=== PATIENT | female | born 1970 | race Caucasian/White ===

== ENCOUNTER 2018-09-13 03:05 | Inpatient (IN) ==
[2018-09-13 03:44] LABS: Basophils % 0.3 %; Eosinophils # 0.3 K/mcL (0.0-0.6); Eosinophils % 3.5 %; Hematocrit 34.8 % (35.3-44.9); Immature Granulocytes % 0.4 % (0-4); Lymphocytes # 2.5 K/mcL (0.6-4.6); Lymphocytes % 27.1 %; Mean Corpuscular HGB Conc 31.6 g/dL (31.6-35.5); Mean Corpuscular Volume 85.3 fL (83.0-100.0); Mean Platelet Volume 10.2 fL (9.4-12.4); Monocytes # 0.6 K/mcL (0.0-1.3); Monocytes % 6.3 %; Neutrophils # 5.7 K/mcL (1.6-8.9); Platelet Count 241 K/mcL (140-400); Red Blood Count 4.08 M/mcL (3.82-4.97); Red Cell Distribution Width 16.3 % (11.5-14.5); Segmented Neutrophils % 62.4 %; White Blood Count 9.1 K/mcL (4.3-11.1)
[2018-09-13 03:52] LABS: INR 0.9; Prothrombin Time 10.6 Seconds (9.4-12.1)
[2018-09-13 03:54] LABS: Activated Partial Thrombo Time 33.4 Seconds (26.0-36.0)
[2018-09-13 04:09] LABS: Alanine Aminotransferase 13 Units/L (7-52); Albumin 4.2 g/dL (3.5-5.7); Albumin/Globulin Ratio 1.4 (1.1-2.2); Alkaline Phosphatase 109 Units/L (34-104); Aspartate Amino Transferase 14 Units/L (13-39); BUN/Creatinine Ratio 19 (6-26); Bilirubin,Indirect 0.2 mg/dL (0.0-1.2); Bilirubin,Total 0.2 mg/dL (0.3-1.0); Blood Urea Nitrogen 30 mg/dL (6-20); Calcium 9.5 mg/dL (8.6-10.3); Carbon Dioxide 23 mEq/L (23-29); Chloride 106 mEq/L (98-107); Ethanol < 10 mg/dL (Less than 10); Glucose 298 mg/dL (70-105); Osmolality,Calculated 313 (280-300); Potassium 3.9 mEq/L (3.5-5.1); Sodium 143 mEq/L (136-145); Total Protein 7.2 g/dL (6.4-8.9); Troponin I < 0.03 ng/mL (< 0.04); eGFR For African Americans 43 (> 60); eGFR For Non-African Americans 36 (> 60)
[2018-09-13 04:28] LABS: Bilirubin,Urine Negative (Negative); Blood,Urine Negative (Negative); Clarity,Urine Clear (Clear); Color,Urine Yellow (Yellow); Glucose,Urine (UA) >=1000 mg/dL (Normal); Ketones,Urine Negative (Negative); Leukocyte Esterase,Urine Negative (Negative); Nitrite,Urine Negative (Negative); Protein,Urine Negative (Neg-Trace); Specific Gravity,Urine 1.027 (1.010-1.025); Urobilinogen,Urine Normal (Normal)
[2018-09-13] MEDS ORDERED: 0.9 % Sodium Chloride 1,000 ML IV ONE ×2 (04:37→05:14)
[2018-09-13 04:40] LABS: Amphetamine Screen,Urine Negative ng/mL (Cutoff=1000); Barbiturate Screen,Urine Negative ng/mL (Cutoff=200); Benzodiazepines Screen,Urine Positive ng/mL (Cutoff=200); Cannabinoid Screen,Urine Negative ng/mL (Cutoff = 50); Cocaine Screen,Urine Negative ng/mL (Cutoff= 300); Opiate Screen,Urine Negative ng/mL (Cutoff=300); Phencyclidine Screen,Urine Negative ng/mL (Cutoff=25)
[2018-09-13 04:51] LABS: Hematocrit 34.1 % (35.3-44.9); Hemoglobin 10.4 g/dL (11.5-15.4); Mean Corpuscular HGB Conc 30.5 g/dL (31.6-35.5); Mean Corpuscular Hemoglobin 26.5 pg (28.0-33.3); Mean Platelet Volume 10.4 fL (9.4-12.4); Platelet Count 232 K/mcL (140-400); Red Blood Count 3.92 M/mcL (3.82-4.97); Red Cell Distribution Width 16.3 % (11.5-14.5); White Blood Count 10.1 K/mcL (4.3-11.1)
[2018-09-13 05:37] LABS: Acetaminophen < 10 mcg/mL (10-20); Salicylate < 2.5 mg/dL (15.0-30.0)
[2018-09-13 05:46] LABS: ABG Base Excess 0 mEq/L (-2 to 3); ABG HCO3 27 mEq/L (21-27); ABG Oxygen Saturation 92 % (95-98); ABG PCO2 59 mmHg (35-45); ABG PH 7.27 pH Units (7.32-7.45); ABG PO2 75 mmHg (85-104); ABG TCO2 29 mEq/L (20-26)
--- NOTE | 2018-09-13 06:27 | Emergency Department Note ---
Disposition Clinical Impression: CKD (chronic kidney disease), stage III, Metabolic encephalopathy, Solitary kidney Diabetes Qualifiers: Diabetes mellitus type: type 2 Diabetes mellitus terminal superintendent insulin use: unspecified terminal superintendent insulin use status Diabetes mellitus complication status: with kidney complications Diabetes mellitus complication detail: with chronic kidney disease Chronic kidney disease stage: stage 3 (moderate) Qualified Code(s): E11.22 - Type 2 diabetes mellitus with diabetic chronic kidney disease Altered mental status Qualifiers: Altered mental status type: unspecified Qualified Code(s): R41.82 - Altered mental status, unspecified Disposition: Still a Patient Condition: Fair Time of Disposition: 07:05 Altered Mental Status HPI - General Chief Complaint: ED Altered Mental Status Stated Complaint: confusion Time Seen by Provider: 09/13/18 03:14 Source: family Mode of arrival: private vehicle Limitations: altered mental status (But she is able to answer questions and follow commands) Nursing Notes Reviewed: Yes Vital Signs Reviewed: Yes - History of Present Illness HPI Narrative: 48-year-old female presents for an evaluation. Patient is a diabetic and has one kidney with chronic kidney disease. She had an episode similar to this last month and several times in the past. Approximately around 11:00 she was saying that her right foot felt heavy in her right hand felt tingling. Her states that she was having trouble walking but stated that she felt much better and did not want to the hospital. She begged him not to bring her. However, at approximately 2 AM she awoke him after she woke up and was not feeling well. But then she stated she felt fine and did not want her to the hospital. is unsure of her medications. She has not had a stroke in the past. Patient was patient is a stroke alert initially. Her last known time was approximately 11 PM or 2300 on 09/12/2018. Her states that she just was not acting right buttock, has had similar symptoms in the past. MD complaint: altered mental status, confusion Time: 23:00 Timing confirmed by: spouse Pain Severity: none Pain Scale: 0 Consistency of Symptoms: waxing and waning Context: other (History of chronic kidney disease and polypharmacy) - Related Data Home Medications Medication Instructions Recorded Confirmed Dapagliflozin Propanediol [Farxiga] 10 mg PO DAILY 06/20/18 07/25/18 Buspirone HCl [Buspar] 30 mg PO BID 07/25/18 07/25/18 Duloxetine HCl [Cymbalta] 60 mg PO HS 07/25/18 07/25/18 Metformin HCl [Glucophage] 1,000 mg PO DAILY 07/25/18 07/25/18 Previous Rx's Medication Instructions Recorded Gabapentin [Neurontin] 600 mg PO DAILY #30 tablet 07/29/18 Lisinopril [Zestril] 5 mg PO DAILY #30 tablet 07/29/18 Allergies Allergy/AdvReac Type Severity Reaction Status Date / Time ketorolac [From Toradol] AdvReac Itching Verified 09/13/18 03:08 Penicillins AdvReac Itching Verified 09/13/18 03:08 All systems ED: reviewed and negative except as stated. Constitutional: Denies: fever, chills, weakness, weight change Eyes: Denies: eye pain, eye discharge, vision change ENT ED: Denies: ear pain, throat pain, dental pain, hearing loss, epistaxis, congestion, dysphagia Cardiovascular: Denies: chest pain, palpitations, dyspnea on exertion, edema, syncope Respiratory: Denies: cough, dyspnea, wheezes, hemoptysis, stridor Gastrointestinal: Denies: abdominal pain, nausea, vomiting, diarrhea, constipation, hematemesis, melena, hematochezia Musculoskeletal: Denies: back pain, neck pain, arthralgia, myalgia Integumentary: Denies: rash, abrasion, lesions Neurological: Reports: confusion. Denies: headache, weakness, numbness, paresthesias, abnormal gait, vertigo Psychiatric: Denies: anxiety, depression, suicidal thoughts, homicidal thoughts, auditory hallucinations, visual hallucinations Endocrine: Denies: fatigue Hematological/Lymphatic: Denies: easy bleeding, easy bruising Allergic/Immunologic: Denies: facial swelling, urticaria Past Medical History - Past Medical History Attestation: Yes The following information was validated with the patient. Source: patient, old records reviewed, obtained from family, nursing notes reviewed Medical history: Reports: cancer, diabetes, other Surgical history: Reports: , orthopedic, other (Cervical and lumbar fixation), other (Partial left nephrectomy) Psychiatric history: Reports: anxiety, depression - Social History Smoking Status: Never smoker Smokeless Tobacco Status: No Alcohol use: Reports: none Drug use: Reports: none Physical Exam - General Limitations: no limitations General appearance: alert, in no apparent distress - Head Head exam: atraumatic, normocephalic, normal inspection - Eye Eye exam: Present: normal appearance, PERRL, EOMI - ENT ENT exam: normal exam, normal oropharynx, mucous membranes moist - Neck Neck exam: Present: normal inspection, full ROM, trachea midline - Chest Chest inspection: Present: normal inspection, symmetric chest wall rise. Absent: tenderness - Respiratory Respiratory exam: Present: normal lung sounds bilaterally. Absent: respiratory distress, wheezes, accessory muscle use - Cardiovascular Cardiovascular exam: Present: regular rate, normal rhythm, normal heart sounds. Absent: bradycardia - Abdominal Exam Abdominal exam: Present: soft, Non-Tender, normal bowel sounds. Absent: tenderness, distention, guarding, rebound, rigidity - Extremities Exam Extremities exam: Present: normal inspection, full ROM, normal capillary refill. Absent: tenderness, pedal edema, joint swelling, calf tenderness - Back Exam Back exam: Present: normal inspection, full ROM. Absent: tenderness, CVA tenderness (R), CVA tenderness (L) - Neurological Exam Neurological exam: Present: alert, CN II-XII intact, reflexes normal. Absent: motor sensory deficit - Expanded Neurological Exam Patient oriented to: Present: person, place Speech: Present: fluid speech Cranial nerves: EOM function (II, III, IV, ): Normal, facial sensation (V): Normal, facial palsy (VII): Normal, gag reflex (IX): Normal, spinal accessory function (XI): Normal, tongue deviation (XII): Normal Cerebellar function: finger to nose: Normal, heel to mo: Normal Motor strength - LUE: 5/5 Motor strength - RUE: 5/5 Motor strength - LLE: 5/5 Motor strength - RLE: 5/5 Upper motor neuron exam: amanda neglect: Absent bilaterally, pronator drift: Absent bilaterally, Babinski sign: Absent bilaterally, sensory extinction: Absent bilaterally Sensory exam upper extremity: light touch: Normal, pin prick: Normal, temperature: Normal, 2 point discrimination: Normal Sensory exam lower extremity: light touch: Normal, pin prick: Normal, temperature: Normal, 2 point discrimination: Normal DTR: bicep (L): 2+, bicep (R): 2+, patellar (L): 2+, patellar (R): 2+, Achilles tendon (L): 2+, Achilles tendon (R): 2+ Coma Scale Eye Opening: Spontaneous Coma Scale Motor Response: Obeys Commands Coma Scale Verbal Response: Confused Coma Scale Total: 14 - Psychiatric Psychiatric exam: Present: flat affect - Skin Skin exam: Present: warm, dry, intact, normal color Course Course Narrative: Patient was placed in examination room. History and physical was obtained. Nurse's notes reviewed. Patient appeared to have a slight facial droop on the right but it was very difficult to ascertain. I did obtain basic lab work. I obtain a stat CT of her head which was read negative by the radiologist. I did speak to [facility] neurologist , who advised against any TPA based on timing as well as on symptoms. I was also concerned with possibility of infection. But at this point chest x- ray and urinalysis were unremarkable. I did obtain a blood gas which did demonstrate a pH of 7.27 PCO2 of 59 PO2 of 75 and a bicarbonate of 27. Patient's lactic acid was 5.5. I did review some of her older visits and with her medications that she currently takes and her kidney function I would be concerned that this might be the culprit for her presentation. I did give 2 L of normal saline. I did state with the hospitalist as well for admission and he recommended repeating the lactic acid level prior to recent termination of her to place her. I did begin BiPAP at 06 20. Although, her PCO2 is not tremendously elevated fill it may be contributed factor. I am also concerned that reviewing her old visit and she produces a denied taking any benzodiazepines during that visit. However, her drug screen is again was positive. She does take Neurontin, BuSpar, Xanax in combination with CKD this could be affecting her mentation. - Reevaluation(s) Reevaluation #1: Patient is resting comfortably at this time. I discussed her initial lab results with her as well as her CT finding. Time: 05:10 Reevaluation #2: Patient is resting comfortably. BiPAP was started. Time: 06:39 Vital Signs Temperature 97.7 F 09/13/18 03:06 Pulse Rate 107 09/13/18 03:06 Respiratory Rate 20 09/13/18 03:06 Blood Pressure 156/102 09/13/18 03:06 O2 Sat by Pulse Oximetry 99 09/13/18 03:06 Temperature 97.7 F 09/13/18 03:06 Pulse Rate 105 09/13/18 07:00 Respiratory Rate 14 09/13/18 07:00 Blood Pressure 123/88 09/13/18 07:00 O2 Sat by Pulse Oximetry 100 09/13/18 07:00 Oxygen Delivery Oxygen Delivery Room Air Altered Mental Status - Medical Records Medical records reviewed: Yes I reviewed the patient's medical records. - Lab Data Lab results reviewed: Yes I reviewed the patient's lab results. Result diagrams: 09/14/18 04:20 09/14/18 04:20 Lab Results 09/13/18 09/13/18 09/13/18 Range/Units 03:31 03:31 03:31 WBC 9.1 (4.3-11.1) K/mcL RBC 4.08 (3.82-4.97) M/mcL Hgb 11.0 L (11.5-15.4) g/dL Hct 34.8 L (35.3-44.9) % MCV 85.3 (83.0-100.0) fL MCH 27.0 L (28.0-33.3) pg MCHC 31.6 (31.6-35.5) g/dL RDW 16.3 H (11.5-14.5) % Plt Count 241 (140-400) K/mcL MPV 10.2 (9.4-12.4) fL Immature Gran % 0.4 (0-4) % Seg Neutrophils % 62.4 % Lymphocytes % 27.1 % Monocytes % 6.3 % Eosinophils % 3.5 % Basophils % 0.3 % Neutrophils # 5.7 (1.6-8.9) K/mcL Lymphocytes # 2.5 (0.6-4.6) K/mcL Monocytes # 0.6 (0.0-1.3) K/mcL Eosinophils # 0.3 (0.0-0.6) K/mcL Basophils # 0.0 (0.0-0.2) K/mcL PT 10.6 (9.4-12.1) Seconds INR 0.9 APTT 33.4 (26.0-36.0) Seconds Sample Site ABG pH (7.32-7.45) pH Units ABG pCO2 (35-45) mmHg ABG pO2 (85-104) mmHg ABG HCO3 (21-27) mEq/L ABG Total CO2 (20-26) mEq/L ABG O2 Saturation (95-98) % ABG Base Excess (-2 to 3) mEq/L Wilmer Test O2 Delivery Device Sodium 143 (136-145) mEq/L Potassium 3.9 (3.5-5.1) mEq/L Chloride 106 (98-107) mEq/L Carbon Dioxide 23 (23-29) mEq/L BUN 30 H (6-20) mg/dL Creatinine 1.56 H (0.60-1.20) mg/dL Est GFR ( Amer) 43 L (> 60) Est GFR (Non-Af Amer) 36 L (> 60) BUN/Creatinine Ratio 19 (6-26) Glucose 298 H (70-105) mg/dL Calculated Osmolality 313 H (280-300) Lactic Acid (0.5-2.2) mmol/L Calcium 9.5 (8.6-10.3) mg/dL Total Bilirubin 0.2 L (0.3-1.0) mg/dL Direct Bilirubin 0.0 (0.0-0.2) mg/dL Indirect Bilirubin 0.2 (0.0-1.2) mg/dL AST 14 (13-39) Units/L ALT 13 (7-52) Units/L Alkaline Phosphatase 109 H (34-104) Units/L Ammonia (16-53) mcmol/L Troponin I < 0.03 (< 0.04) ng/mL Serum Total Protein 7.2 (6.4-8.9) g/dL Albumin 4.2 (3.5-5.7) g/dL Globulin 3.0 (2.4-3.5) g/dL Albumin/Globulin Ratio 1.4 (1.1-2.2) Urine Color (Yellow) Urine Clarity (Clear) Urine pH (5.0-8.0) pH Units Ur Specific [place] (1.010-1.025) Urine Protein (Neg-Trace) mg/dL Urine Glucose (UA) (Normal) mg/dL Urine Ketones (Negative) mg/dL Urine Blood (Negative) Urine Nitrite (Negative) Urine Bilirubin (Negative) Urine Urobilinogen (Normal) mg/dL Ur Leukocyte Esterase (Negative) Ur Culture Indicated? (NO) Salicylates < 2.5 L (15.0-30.0) mg/dL Urine Opiates Screen (Jttzrt=661) ng/mL Ur Buprenorphine Scrn (Cutoff=5) ng/mL Acetaminophen < 10 L (10-20) mcg/mL Ur Barbiturates Screen (Lhceay=956) ng/mL Ur Phencyclidine Scrn (Cutoff=25) ng/mL Ur Amphetamines Screen (Qqhrvu=5792) ng/mL U Benzodiazepines Scrn (Idiktv=471) ng/mL Urine Cocaine Screen (Cutoff= 300) ng/mL U Marijuana (THC) Screen (Cutoff = 50) ng/mL Ur Drug Screen Interp Ethyl Alcohol < 10 (Less than 10) mg/dL 09/13/18 09/13/18 09/13/18 Range/Units 03:31 04:10 04:10 WBC (4.3-11.1) K/mcL RBC (3.82-4.97) M/mcL Hgb (11.5-15.4) g/dL Hct (35.3-44.9) % MCV (83.0-100.0) fL MCH (28.0-33.3) pg MCHC (31.6-35.5) g/dL RDW (11.5-14.5) % Plt Count (140-400) K/mcL MPV (9.4-12.4) fL Immature Gran % (0-4) % Seg Neutrophils % % Lymphocytes % % Monocytes % % Eosinophils % % Basophils % % Neutrophils # (1.6-8.9) K/mcL Lymphocytes # (0.6-4.6) K/mcL Monocytes # (0.0-1.3) K/mcL Eosinophils # (0.0-0.6) K/mcL Basophils # (0.0-0.2) K/mcL PT (9.4-12.1) Seconds INR APTT (26.0-36.0) Seconds Sample Site ABG pH (7.32-7.45) pH Units ABG pCO2 (35-45) mmHg ABG pO2 (85-104) mmHg ABG HCO3 (21-27) mEq/L ABG Total CO2 (20-26) mEq/L ABG O2 Saturation (95-98) % ABG Base Excess (-2 to 3) mEq/L Wilmer Test O2 Delivery Device Sodium (136-145) mEq/L Potassium (3.5-5.1) mEq/L Chloride (98-107) mEq/L Carbon Dioxide (23-29) mEq/L BUN (6-20) mg/dL Creatinine (0.60-1.20) mg/dL Est GFR ( Amer) (> 60) Est GFR (Non-Af Amer) (> 60) BUN/Creatinine Ratio (6-26) Glucose (70-105) mg/dL Calculated Osmolality (280-300) Lactic Acid (0.5-2.2) mmol/L Calcium (8.6-10.3) mg/dL Total Bilirubin (0.3-1.0) mg/dL Direct Bilirubin (0.0-0.2) mg/dL Indirect Bilirubin (0.0-1.2) mg/dL AST (13-39) Units/L ALT (7-52) Units/L Alkaline Phosphatase (34-104) Units/L Ammonia 37 (16-53) mcmol/L Troponin I (< 0.04) ng/mL Serum Total Protein (6.4-8.9) g/dL Albumin (3.5-5.7) g/dL Globulin (2.4-3.5) g/dL Albumin/Globulin Ratio (1.1-2.2) Urine Color Yellow (Yellow) Urine Clarity Clear (Clear) Urine pH 6.0 (5.0-8.0) pH Units Ur Specific [place] 1.027 H (1.010-1.025) Urine Protein Negative (Neg-Trace) mg/dL Urine Glucose (UA) >=1000 H (Normal) mg/dL Urine Ketones Negative (Negative) mg/dL Urine Blood Negative (Negative) Urine Nitrite Negative (Negative) Urine Bilirubin Negative (Negative) Urine Urobilinogen Normal (Normal) mg/dL Ur Leukocyte Esterase Negative (Negative) Ur Culture Indicated? NO (NO) Salicylates (15.0-30.0) mg/dL Urine Opiates Screen Negative (Acdrrt=964) ng/mL Ur Buprenorphine Scrn Negative (Cutoff=5) ng/mL Acetaminophen (10-20) mcg/mL Ur Barbiturates Screen Negative (Rfyjoh=536) ng/mL Ur Phencyclidine Scrn Negative (Cutoff=25) ng/mL Ur Amphetamines Screen Negative (Dgrxwx=9987) ng/mL U Benzodiazepines Scrn Positive H (Mconzb=106) ng/mL Urine Cocaine Screen Negative (Cutoff= 300) ng/mL U Marijuana (THC) Screen Negative (Cutoff = 50) ng/mL Ur Drug Screen Interp See Below Ethyl Alcohol (Less than 10) mg/dL 09/13/18 09/13/18 09/13/18 Range/Units 04:39 04:39 05:43 WBC 10.1 (4.3-11.1) K/mcL RBC 3.92 (3.82-4.97) M/mcL Hgb 10.4 L (11.5-15.4) g/dL Hct 34.1 L (35.3-44.9) % MCV 87.0 (83.0-100.0) fL MCH 26.5 L (28.0-33.3) pg MCHC 30.5 L (31.6-35.5) g/dL RDW 16.3 H (11.5-14.5) % Plt Count 232 (140-400) K/mcL MPV 10.4 (9.4-12.4) fL Immature Gran % (0-4) % Seg Neutrophils % % Lymphocytes % % Monocytes % % Eosinophils % % Basophils % % Neutrophils # (1.6-8.9) K/mcL Lymphocytes # (0.6-4.6) K/mcL Monocytes # (0.0-1.3) K/mcL Eosinophils # (0.0-0.6) K/mcL Basophils # (0.0-0.2) K/mcL PT (9.4-12.1) Seconds INR APTT (26.0-36.0) Seconds Sample Site R Radial ABG pH 7.27 L (7.32-7.45) pH Units ABG pCO2 59 H (35-45) mmHg ABG pO2 75 L (85-104) mmHg ABG HCO3 27 (21-27) mEq/L ABG Total CO2 29 H (20-26) mEq/L ABG O2 Saturation 92 L (95-98) % ABG Base Excess 0 (-2 to 3) mEq/L Wilmer Test N/A O2 Delivery Device Room Air Sodium (136-145) mEq/L Potassium (3.5-5.1) mEq/L Chloride (98-107) mEq/L Carbon Dioxide (23-29) mEq/L BUN (6-20) mg/dL Creatinine (0.60-1.20) mg/dL Est GFR ( Amer) (> 60) Est GFR (Non-Af Amer) (> 60) BUN/Creatinine Ratio (6-26) Glucose (70-105) mg/dL Calculated Osmolality (280-300) Lactic Acid 5.5 H* (0.5-2.2) mmol/L Calcium (8.6-10.3) mg/dL Total Bilirubin (0.3-1.0) mg/dL Direct Bilirubin (0.0-0.2) mg/dL Indirect Bilirubin (0.0-1.2) mg/dL AST (13-39) Units/L ALT (7-52) Units/L Alkaline Phosphatase (34-104) Units/L Ammonia (16-53) mcmol/L Troponin I (< 0.04) ng/mL Serum Total Protein (6.4-8.9) g/dL Albumin (3.5-5.7) g/dL Globulin (2.4-3.5) g/dL Albumin/Globulin Ratio (1.1-2.2) Urine Color (Yellow) Urine Clarity (Clear) Urine pH (5.0-8.0) pH Units Ur Specific [place] (1.010-1.025) Urine Protein (Neg-Trace) mg/dL Urine Glucose (UA) (Normal) mg/dL Urine Ketones (Negative) mg/dL Urine Blood (Negative) Urine Nitrite (Negative) Urine Bilirubin (Negative) Urine Urobilinogen (Normal) mg/dL Ur Leukocyte Esterase (Negative) Ur Culture Indicated? (NO) Salicylates (15.0-30.0) mg/dL Urine Opiates Screen (Lzfjsj=138) ng/mL Ur Buprenorphine Scrn (Cutoff=5) ng/mL Acetaminophen (10-20) mcg/mL Ur Barbiturates Screen (Kgbfxw=933) ng/mL Ur Phencyclidine Scrn (Cutoff=25) ng/mL Ur Amphetamines Screen (Hervxr=2560) ng/mL U Benzodiazepines Scrn (Arjsev=083) ng/mL Urine Cocaine Screen (Cutoff= 300) ng/mL U Marijuana (THC) Screen (Cutoff = 50) ng/mL Ur Drug Screen Interp Ethyl Alcohol (Less than 10) mg/dL - Radiology Data Radiology results reviewed: Yes I reviewed the patient's radiology results. EXAMINATION: CT OF THE HEAD WITHOUT CONTRAST - STROKE ALERT 09/13/2018 3:39 am TECHNIQUE: CT of the head was performed without the administration of intravenous contrast. Dose modulation, iterative reconstruction, and/or weight based adjustment of the mA/kV was utilized to reduce the radiation dose to as low as reasonably achievable. COMPARISON: Head CT dated 07/25/2018. HISTORY: ORDERING SYSTEM PROVIDED HISTORY: stroke alert FINDINGS: BRAIN/VENTRICLES: There is no acute intracranial hemorrhage, mass effect or midline shift. No abnormal extra-axial fluid collection. The johnson-white differentiation is maintained without evidence of an acute infarct. There is no evidence of hydrocephalus. ORBITS: The visualized portion of the orbits demonstrate no acute abnormality. SINUSES: The visualized paranasal sinuses and mastoid air cells demonstrate no acute abnormality. SOFT TISSUES/SKULL: No acute abnormality of the visualized skull or soft tissues. Findings on this exam were discussed with Dr. Palmer by Dr. Alfaro on 09/13/2018 at 3:[address]/CT stroke alert head wo con IMPRESSION: No acute intracranial abnormality. D/ / Cee Alfaro MD / Cee Alfaro MD Interpreting Provider: Cee Alfaro MD INATION: ONE XRAY VIEW OF THE CHEST 09/13/2018 3:42 am COMPARISON: None. HISTORY: ORDERING SYSTEM PROVIDED HISTORY: altered mental status FINDINGS: Cardiac and mediastinal shadows are normal. No infiltrates. No effusions. No pneumothorax. No free air below the diaphragm. XR/XR chest 1V portable IMPRESSION: No acute findings in the chest. - EKG Data EKG attestation: Yes I reviewed and interpreted this EKG. EKG results narrative: Normal sinus rhythm 89 bpm, normal axis, normal MS interval, normal QRS duration, no acute ST elevations. TPA Checklist - LKW: 3-4.5 hrs Add. Warnings/Precautions Patient/family understanding: The patient/family members have been counseled and understood the risk, benefit, and alternatives of treatment. Critical Care Time Critical Care Time: Yes Total Critical Care Time: 30 Attestation: The high probability of a clinically significant, sudden or life threatening deterioration of the patient's condition required my full and direct attention, intervention and personal management. Attestation Statement - Attestation Attestation: Addendum I, Raymundo Lugo DO, saw this patient in the emergency department after patient had artery been admitted. was concerned about the patient's confusion which is what she was admitted for. Patient was not hypoxic, was answering questions in the emergency Department however she did appear to be confused. This has apparently occurred multiple times in the past. Disposition did not change in patient was transferred to the floor without further competition.
[2018-09-13] MEDS ORDERED: 0.9 % Sodium Chloride 1,000 ML IVC ONE (08:30)
[2018-09-13] MEDS ORDERED: *HR* LORazepam 2 MG/ML VIAL IVP ONE (08:32)
[2018-09-13] MEDS ORDERED: 0.9 % Sodium Chloride 1,000 ML ONE (08:34)
[2018-09-13 08:43] LABS: ABG Base Excess -1 mEq/L (-2 to 3); ABG HCO3 25 mEq/L (21-27); ABG Oxygen Saturation 97 % (95-98); ABG PCO2 46 mmHg (35-45); ABG PH 7.34 pH Units (7.32-7.45); ABG PO2 94 mmHg (85-104); ABG TCO2 26 mEq/L (20-26)
[2018-09-13] MEDS ORDERED: Naloxone 0.4 MG/ML INJ IVP PRN (09:28)
[2018-09-13] MEDS ORDERED: *HR* Metoprolol 5 MG/5 ML VIAL IVP PRN (09:30)
[2018-09-13] MEDS ORDERED: Ondansetron 4 MG/2 ML VIAL IVP PRN (09:31)
--- NOTE | 2018-09-13 09:33 | Internal Med History&Physical ---
Date of Encounter: 09/13/18 Time of Encounter: 10:25 Internal Medicine - H&P: HPI History of present illness: Ms. Farrell is a 48 year old female with history of CKD, solitary kidney, DM, presented to ED with altered mental status. Her son is present at bedside and he provides some history as patient is sedated. Last night patient was with her and son and she was confused and slurring speech. She was having difficulty walking but she refused to go to the hospital. She was eventually forced by her son and . Her son states she was fighting and grabbing on to things not to go to ED for evaluation, but her family insisted and brought her in. On arrival to ED, a stroke alert was called. Last known well time was 11 pm [address] A stat CT head was negative. She was not a tpa candidate based on her presentation. ABG done showed pH 7.27, pCO2 of 59, pO2 75 and bicarb 27. She had lactic acid elevated at 5.5. She was placed on bipap and ABG did improve. Urine drug screen was positive for benzodiazepines. She takes Neurontin, Buspar, Xanax at home. She was admitted about one month ago with similar presentations and was suggested to decrease the doses, not abruptly DC'ing Xanax and Neurontin because of potential for withdrawals. Currently during my evaluation ROS limited as patient spontaneously breathing but not responding to verbal and tactile stimuli. Family history could not be obtain by patient due to mental status. 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 cervical fusion. lumbar fusion. partial nephrectomy of left kidney - Social History Smoking Status: Never smoker Smokeless Tobacco Status: No Alcohol use: rarely Drug use: none - Family History Mother History Unknown: Yes Internal Medicine - H&P: Meds Dapagliflozin Propanediol [Farxiga] 10 mg PO DAILY 06/20/18 [History] Buspirone HCl [Buspar] 30 mg PO BID 07/25/18 [History] Duloxetine HCl [Cymbalta] 60 mg PO HS 07/25/18 [History] Metformin HCl [Glucophage] 1,000 mg PO DAILY 07/25/18 [History] Gabapentin [Neurontin] 600 mg PO DAILY #30 tablet 07/29/18 [Rx] Lisinopril [Zestril] 5 mg PO DAILY #30 tablet 07/29/18 [Rx] Allergy/AdvReac Type Severity Reaction Status Date / Time ketorolac [From Toradol] AdvReac Itching Verified 09/13/18 03:08 Penicillins AdvReac Itching Verified 09/13/18 03:08 ROS unobtainable: due to mental status All Systems PM: A 10-system review of systems was performed and is negative for pertinent findings except as documented above in the HPI. - Constitutional Vitals: Temp Pulse Resp BP Pulse Ox 97.7 F 98 14 129/87 100 09/13/18 03:06 09/13/18 08:44 09/13/18 08:20 09/13/18 08:44 09/13/18 08:44 General appearance: Absent: answers questions appropriately Exam: obtunded, spontaneously breathing on BIPAP with some abnormal breathing patterns. - Head Head exam: Present: atraumatic, normocephalic - Expanded Head Exam Head exam expanded: Absent: laceration - Eye Eye exam: Absent: EOMI (not able to assess) Pupils: Absent: PERRL Additional comments: Can not assess motion due to status. Bilateral pupils are not reactive to light. - ENT ENT exam: Present: mucous membranes moist - Neck Neck exam general surgery: Present: supple, trachea midline. Absent: lymphadenopathy - Respiratory Respiratory exam: Present: CTAB. Absent: accessory muscle use, rales, rhonchi, wheezes - Cardiovascular Cardiovascular exam: Present: RRR, +S1, +S2. Absent: diastolic murmur, gallop, rubs, systolic murmur - GI/Abdominal GI/Abdominal exam: Present: normal bowel sounds, soft, no peritoneal signs. Absent: distended, tenderness - Extremities Exam Extremities exam: Present: warm, radial pulses palpable and symmetrical. Absent: calf tenderness, cyanotic, pedal edema - Neurological Exam Neurological exam: Present: altered. Absent: abnormal gait, alert, CN II-XII intact, normal gait, oriented X3 - Skin Skin exam: Present: dry, intact Internal Med - H&P Results - Labs CBC & Chem 7: 09/13/18 04:39 09/13/18 03:31 Labs: Short CBC 09/13/18 09/13/18 Range/Units 03:31 04:39 WBC 9.1 10.1 (4.3-11.1) K/mcL Hgb 11.0 L 10.4 L (11.5-15.4) g/dL Hct 34.8 L 34.1 L (35.3-44.9) % Plt Count 241 232 (140-400) K/mcL Neutrophils # 5.7 (1.6-8.9) K/mcL BMP 09/13/18 03:31 Sodium 143 Potassium 3.9 Chloride 106 Carbon Dioxide 23 BUN 30 H Creatinine 1.56 H Glucose 298 H Calcium 9.5 Cardiac Enzymes 09/13/18 Range/Units 03:31 Troponin I < 0.03 (< 0.04) ng/mL Liver Function 09/13/18 Range/Units 03:31 Total Bilirubin 0.2 L (0.3-1.0) mg/dL Direct Bilirubin 0.0 (0.0-0.2) mg/dL AST 14 (13-39) Units/L ALT 13 (7-52) Units/L Alkaline Phosphatase 109 H (34-104) Units/L Albumin 4.2 (3.5-5.7) g/dL Urine 09/13/18 Range/Units 04:10 Urine Color Yellow (Yellow) Urine Clarity Clear (Clear) Urine pH 6.0 (5.0-8.0) pH Units Ur Specific Addison 1.027 H (1.010-1.025) Urine Protein Negative (Neg-Trace) mg/dL Urine Glucose (UA) >=1000 H (Normal) mg/dL - ABG Interpretation ABG results: 09/13/18 09/13/18 05:43 08:40 ABG pH 7.27 L 7.34 ABG pCO2 59 H 46 H ABG pO2 75 L 94 ABG HCO3 27 25 ABG Total CO2 29 H 26 ABG O2 Saturation 92 L 97 ABG Base Excess 0 -1 - Impressions ITS Impressions Chest X-Ray 09/13/18 03:21 IMPRESSION: No acute findings in the chest. D/ / Cee Alfaro MD / Cee Alfaro MD Interpreting Provider: Cee Alfaro MD Head CT 09/13/18 03:28 IMPRESSION: No acute intracranial abnormality. D/ / Cee Alfaro MD / Cee Alfaro MD Interpreting Provider: Cee Alfaro MD - Assessment and Plan (1) Toxic metabolic encephalopathy Current Visit: Yes Status: Acute Assessment and plan: Unsure etiology at this time, but there is concern for polypharmacy. Urine drug screen positive for benzodiazepines, which is a home prescription. Lactic acid elevated could be due to medications such as metformin. Did improve with 3L normal saline. CT without contrast in ED negative. - Consult Neurology - Consult Nephrology - evaluate for possible acidosis of renal origin - Continue BIPAP - Patient currently on tele floor, transfer to step-down unit for closer monitoring. (2) CKD (chronic kidney disease), stage III Current Visit: Yes Status: Acute (3) Diabetes Current Visit: Yes Status: Acute Assessment and plan: NPO, ISS q6h. Hold metformin, which could be contribution to lactic acidosis. Qualifiers: Diabetes mellitus type: type 2 Diabetes mellitus nursing home insulin use: unspecified meterman insulin use status Diabetes mellitus complication status: with kidney complications Diabetes mellitus complication detail: with chronic kidney disease Chronic kidney disease stage: stage 3 (moderate) Qualified Code(s): E11.22 - Type 2 diabetes mellitus with diabetic chronic kidney disease; N18.3 - Chronic kidney disease, stage 3 (moderate) (4) Solitary kidney Current Visit: Yes Status: Acute (5) Acute kidney injury superimposed on CKD Current Visit: No Status: Acute (6) Anemia Current Visit: No Status: Acute Qualifiers: Anemia type: unspecified type Qualified Code(s): D64.9 - Anemia, unspecified (7) DVT prophylaxis Current Visit: No Status: Acute Assessment and plan: Heparin SQ (8) Lactic acidosis Current Visit: Yes Status: Acute Assessment and plan: Plan as above. - Time Spent With Patient Total time spent is greater than 50% in coordination of care (as documented) at patient's floor/unit and/or counseling patient:
--- NOTE | 2018-09-13 11:23 | Nephrology Consult Note ---
Date of Encounter: 09/13/18 Time of Encounter: 11:15 Assessment and Plan (1) CKD (chronic kidney disease), stage III Current Visit: Yes Status: Acute Baseline is CKD III with Dr. Reynoso. Recent ELISSA in July of this year, GFR was 6, did not require HD. GFR is 36 today, stable. Urine sodium, potassium, calcium ordered. RTA is a diagnosis by exclusion, labs pending. UA ph noted to be 6. Carbon Dioxide is 23. (2) Solitary kidney Current Visit: Yes Status: Acute H/x of. (3) Toxic metabolic encephalopathy Current Visit: Yes Status: Acute Per primary. History of Present Illness - Reason for Consult Consult date: 09/13/18 (R/O RTA) Chronic Kidney Disease Requesting physician: Rachel Angeles - Chief Complaint AMS - History of Present Illness Ms. Farrell is a 48 year old female who presented today with AMS. She was persuaded to come to ED by and son. Per record she was agitated and did not want to seek medical treatment, but was made to come by her family. PMH: anxiety, depression, CKD III, solitary kidney, DM. She is seen by Dr. Reynoso in the office. Pt is poor historian, most information was collected by previous medical records. She will answer questions, but she is somewhat slow to respond and fatigues easily. She will respond with shaking her head, but will not speak. Neurology has been consulted. [facility] were consulted to rule out RTA. Urine potassium, sodium, and calcium ordered. UA already completed. She lives at home with . Per ED report denies etoh, tobacco, or illicit drug use. She is prescribed Neurontin, Buspar, Xanax at home, she was encouraged to decrease dosages during a hospitalization last month, but not to abruptly stop them due to withdrawal side effects. No family at bedside, unsure of any FH of CKD or HD. 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 cervical fusion. lumbar fusion. partial nephrectomy of left kidney - Social History Smoking Status: Never smoker Smokeless Tobacco Status: No Alcohol use: rarely Drug use: none - Family History Mother History Unknown: Yes Medications and Allergies Dapagliflozin Propanediol [Farxiga] 10 mg PO DAILY 06/20/18 [History] Buspirone HCl [Buspar] 30 mg PO BID 07/25/18 [History] Duloxetine HCl [Cymbalta] 60 mg PO HS 07/25/18 [History] Metformin HCl [Glucophage] 1,000 mg PO DAILY 07/25/18 [History] Gabapentin [Neurontin] 600 mg PO DAILY #30 tablet 07/29/18 [Rx] Lisinopril [Zestril] 5 mg PO DAILY #30 tablet 07/29/18 [Rx] Allergy/AdvReac Type Severity Reaction Status Date / Time ketorolac [From Toradol] AdvReac Itching Verified 09/13/18 03:08 Penicillins AdvReac Itching Verified 09/13/18 03:08 Review of Systems All Systems review (narrative): The remainder of the systems are negative. Constitutional: no chills Cardiovascular: no chest pain, no dyspnea Gastrointestinal: no diarrhea, no nausea, no vomiting Genitourinary Female: no hematuria Exam - Vital Signs Vital signs: Initial Vital Signs Temp Pulse Resp BP Pulse Ox 97.7 F 107 20 156/102 99 09/13/18 03:06 09/13/18 03:06 09/13/18 03:06 09/13/18 03:06 09/13/18 03:06 Vital Signs - Last 8 Hours Temp Pulse Resp BP Pulse Ox 09/13/18 10:23 97.7 F 89 16 119/78 100 09/13/18 08:44 98 129/87 100 09/13/18 08:20 106 14 136/108 100 09/13/18 07:00 105 14 123/88 100 09/13/18 06:40 14 100 09/13/18 06:30 102 14 131/73 100 09/13/18 06:00 100 126/76 100 09/13/18 05:30 97 120/68 99 09/13/18 05:21 97 16 106/70 100 09/13/18 04:11 91 16 114/73 09/13/18 03:56 98 16 123/72 09/13/18 03:41 93 16 106/58 Intake and Output 09/12/18 09/13/18 09/13/18 23:59 07:59 15:59 Intake Total 1999 Balance 1999 Intake: IV Fluids 1999 0.9 % Sodium Chloride 1,000 ML 1999 @ 1000 mls/hr IV ONCE ONE Rx#: [id number] Other: Weight 63.503 kg Blood Glucose* 290 149 Patient Weight 09/13/18 23:59 Weight 63.503 kg - General Appearance General appearance: well-developed, well-nourished EENT: ATNC, hearing intact, vision intact Neck: supple Respiratory: clear Cardiology: no edema, normal S1, normal S2 Gastrointestinal: normoactive bowel sounds, no tenderness, no guarding Integumentary: no rash, warm and dry Additional Comments: Alert to self, unable to state location or date. Shakes head yes and no when asked questions. Musculoskeletal: no deformities, no erythema Psychiatric: mood/affect appropriate, cooperative Results - Lab Results 09/13/18 04:39 09/13/18 03:31 Most recent lab results 09/13/18 09/13/18 09/13/18 03:31 05:43 08:40 ABG pH 7.27 L 7.34 ABG pCO2 59 H 46 H ABG pO2 75 L 94 ABG HCO3 27 25 ABG O2 Saturation 92 L 97 Calcium 9.5 Consult Discharge Plan - Plan Referrals: Kermit Yan MD [Primary Care Provider] -
--- NOTE | 2018-09-13 11:30 | Neurology - Consult Note ---
<Brad Alfredo - Last Filed: 09/13/18 12:08> Date of Encounter: 09/13/18 Time of Encounter: 11:26 Assessment and Plan (1) Toxic metabolic encephalopathy Current Visit: Yes Status: Acute Unclear etiology at this time Polypharmacy vs Respiratory failure with acidosis, hypoxia and hypercapnea or some combination thereof -on BZD's, buspar, gabapentin; UDS +BZD's With abrupt changes to LOC and mental state r/o an acute ischemic cause; MRI of the brain is ordered and pending Will also r/o non-epileptic seizure event; STAT EEG pending Otherwise closely monitor neurological status with frequent neuro assessments per protocol Further recommendations pending completion of w/u History of Present Illness Chief complaint: agitation, confusion, slurred speech HPI: Ms. Farrell is a 48 year old female with a PMH of CKD, DM, anxiety, depression, and kidney cancer who is s/p partial left nephrectomy. She presents to [facility] at the behest of her family for evaluation of confusion, agitation and slurred speech. Her LKW was 11am yesterday as such she was not a candidate for TPA per the [facility] stroke team but she was recommended to be admitted for a CVA work-up. Also of note she was found to have an elevated lactic acid and respiratory acidosis with hypoxia and hypercapnea with an unremarkable CXR. Currently, she is confused and unable to verbalize therefore, HPI was collected with information obtained from the chart review and physician to [employer] report. Neurology has been consulted d/t an abrupt change in LOC. It is reported that she was agitated in the ED and thusly received a dose of Ativan IV. She was calm thereafter. Upon assessment by the attending she was noted to be obtunded and unarousable to painful stimulus. Further, she had fixed pupils. Two doses of Romazicon were given however she did not have any significant improvement initially and therefore was transferred to the ICU for closer monitoring. By the time of my assessment she is awake and alert and oriented to person but she is encephalopathic and unable to provide me any information regarding her current situation. She was admitted approximately 1-month ago for a similar event and during that admission it was advised to slowly taper Xanax and Neurontin and doses were decreased by the primary team prior to d/c. I have reviewed the CBC and find a stable chronic anemia. The CMP finds stable CKD, the UA is negative for an acute infection. CXR is without any acute pulmonary findings. The UDS is positive for BZD's for which she is prescribed. 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 cervical fusion. lumbar fusion. partial nephrectomy of left kidney - Social History Smoking Status: Never smoker Smokeless Tobacco Status: No Alcohol use: rarely Drug use: none - Family History Mother History Unknown: Yes Medications and Allergies Dapagliflozin Propanediol [Farxiga] 10 mg PO DAILY 06/20/18 [History] Buspirone HCl [Buspar] 30 mg PO BID 07/25/18 [History] Duloxetine HCl [Cymbalta] 60 mg PO HS 07/25/18 [History] Metformin HCl [Glucophage] 1,000 mg PO DAILY 07/25/18 [History] Gabapentin [Neurontin] 600 mg PO DAILY #30 tablet 07/29/18 [Rx] Lisinopril [Zestril] 5 mg PO DAILY #30 tablet 07/29/18 [Rx] Allergy/AdvReac Type Severity Reaction Status Date / Time ketorolac [From Toradol] AdvReac Itching Verified 09/13/18 03:08 Penicillins AdvReac Itching Verified 09/13/18 03:08 ROS unobtainable: due to mental status All Systems: The remainder of the systems were reviewed and are negative Physical Examination - Vital Signs Vital Signs: Initial Vital Signs Temp Pulse Resp BP Pulse Ox 97.7 F 107 20 156/102 99 09/13/18 03:06 09/13/18 03:06 09/13/18 03:06 09/13/18 03:06 09/13/18 03:06 - Exam Exam: Examination: General Examination: *CONSTITUTIONAL: Alert and awake, oriented to self only *GENERAL APPEARANCE OF PATIENT appears stated age with appropriate hygiene. *EYES: pupils equal, round, reactive to light and accommodation, conjunctiva clear without masses or ulcerations, fundi normal. *CARDIOVASCULAR: RRR, no peripheral edema, distal temperature normal, dorsalis pedis pulses normal. Refer to vital signs * MUSCULOSKELETAL: *GAIT AND STATION: Deferred *ASSESSMENT OF MUSCLE STRENGTH IN THE UPPER AND LOWER EXTREMITIES bilateral deltoid, bicep, tricep, weapons and tactics instructor strength, hip flexors ,anterior tibialis, dorsoflexion of the foot 5/5 but patient fatigues easily *MUSCLE TONE IN THE UPPER AND LOWER EXTREMITIES normal without spasticity or rigidity. No abnormal movements, fasciculations or atrophy identified. Neurological: *ORIENTATION to person only *LANGUAGE AND FUNCTION she attempts to verbalize but is having difficulty vocalizing with a whispering quality to her voice. *ATTENTION AND CONCENTRATION are abnormal and she is unable to maintain concentration or attention for a prolonged period *LANGUAGE FUNCTION are altered and she is having difficulty vocalizing *FUND OF KNOWLEDGE unaware of current events, past history, vocabulary *MENTAL attention span and concentration abnormal. She is requiring frequent redirection *CN II optic fundi were normal, no papilledema noted. *CN III,IV, PERRLA extraocular eye movements were limited with decreased extraoccular motility on abduction. She is having non-fatigable nystagmus and no ptosis noted. *CN V shows normal sensation. jaws open symmetrically *CN VII shows normal facial movement symmetrically, upper and lower bilaterally. *CN VIII shows no significant hearing loss on exam *CN IX-X palate elevated symmetrically *CN XI normal strength in the sternocleidomastoid muscles, symmetrical shoulder shrugging. *CN XII tongue protruded in the midline, with normal strength and movement. *SENSORY EXAMINATION light touch intact *REFLEXES: deep tendon reflexes were absent diffusely, no pathological reflexes were noted. *CEREBELLAR TESTING normal finger to nose, heel/knee/mo *PAIN LEVEL 0/10 Results - Laboratory Findings CBC and BMP: 09/13/18 04:39 09/13/18 03:31 Abnormal lab findings: Abnormal lab results Hgb 10.4 g/dL (11.5-15.4) L 09/13/18 04:39 Hct 34.1 % (35.3-44.9) L 09/13/18 04:39 MCH 26.5 pg (28.0-33.3) L 09/13/18 04:39 MCHC 30.5 g/dL (31.6-35.5) L 09/13/18 04:39 RDW 16.3 % (11.5-14.5) H 09/13/18 04:39 ABG pH 7.27 pH Units (7.32-7.45) L 09/13/18 05:43 ABG pCO2 46 mmHg (35-45) H 09/13/18 08:40 ABG pO2 75 mmHg (85-104) L 09/13/18 05:43 ABG Total CO2 29 mEq/L (20-26) H 09/13/18 05:43 ABG O2 Saturation 92 % (95-98) L 09/13/18 05:43 BUN 30 mg/dL (6-20) H 09/13/18 03:31 Creatinine 1.56 mg/dL (0.60-1.20) H 09/13/18 03:31 Est GFR ( Amer) 43 (> 60) L 09/13/18 03:31 Est GFR (Non-Af Amer) 36 (> 60) L 09/13/18 03:31 Glucose 298 mg/dL (70-105) H 09/13/18 03:31 POC Glucose 143 mg/dL (70-99) H 09/13/18 10:54 Calculated Osmolality 313 (280-300) H 09/13/18 03:31 Lactic Acid 3.3 mmol/L (0.5-2.2) H 09/13/18 08:39 Total Bilirubin 0.2 mg/dL (0.3-1.0) L 09/13/18 03:31 Alkaline Phosphatase 109 Units/L (34-104) H 09/13/18 03:31 Ur Specific [place] 1.027 (1.010-1.025) H 09/13/18 04:10 Urine Glucose (UA) >=1000 mg/dL (Normal) H 09/13/18 04:10 Salicylates < 2.5 mg/dL (15.0-30.0) L 09/13/18 03:31 Acetaminophen < 10 mcg/mL (10-20) L 09/13/18 03:31 U Benzodiazepines Scrn Positive ng/mL (Aktlug=573) H 09/13/18 04:10 - Diagnostic Findings Additional findings: CT/CT stroke alert head wo con IMPRESSION: No acute intracranial abnormality. Consult Discharge Plan - Plan Referrals: Kermit Yan MD [Primary Care Provider] - <Kyle May - Last Filed: 09/13/18 17:42> Date of Encounter: 09/13/18 Assessment and Plan (1) Toxic metabolic encephalopathy Current Visit: Yes Status: Acute I have personally performed a [id number] assessment of the patient and have reviewed the PA/MANAGER SUPPL[employer] CH[employer] PLANNING note. My impressions are as follows: I agree with the assessment and plan as stated above. I did review the EEG which does reveal what appeared to be triphasic waves, this pattern is often seen and those with hepatic or renal encephalopathy however may also be reflective of other toxic or metabolic exposures. The fact that she seems to be improving clinically without having had any significant medical treatment suggest to me that this may have been some transient event caused by some type of exposure. She is not postictal. We are awaiting MRI scan of the brain to rule out the possibility of an intracranial lesion such as infarct or neoplasm. However she is not febrile, she denies headache, her vital signs of been fairly stable since admission. Further recommendations will be made depending on her condition in the morning. She is not back to her baseline by then I might consider repeating an EEG, along with cerebral angiogram to rule out vasculitis and perhaps LP to rule out inflammatory conditions. I will reevaluate her in the morning. Critical care time spent with this patient today was 50 minutes. History of Present Illness HPI: The chart was reviewed, the patient was seen and examined independently. Case was discussed with the CMP. I agree with his documentation of the history of present illness as above. I would like to add however that I did have the opportunity to speak with the patient's and confidence. He informs me that she does have a history of PTSD is result of having a stillborn child 20 years ago. She is also very emotional about her son who has less and less time for her these days. I did ask whether not he felt improvement and possible that she could maybe have taken some either elicited or other substance and he could not say definitively that she may not have. I did review the EEG which does reveal triphasic waves. Clinically, she seems to be improved from the previous assessment as above. However she really has not received any additional medication treatment other than supportive care. ROS unobtainable: due to mental status All Systems: The remainder of the systems were reviewed and are negative Physical Examination - Vital Signs Vital Signs: Initial Vital Signs Temp Pulse Resp BP Pulse Ox 97.7 F 107 20 156/102 99 09/13/18 03:06 09/13/18 03:06 09/13/18 03:06 09/13/18 03:06 09/13/18 03:06 - Exam Exam: I have personally performed a [id number] assessment of the patient and have reviewed the PA/MANAGER [employer] PLANNING note. My impressions are as follows: Since the above assessment, patient is able to speak however not coherently and fluently. She seems to have some difficulty with verbal expression and sometimes even seems to make paraphasic errors consistent with expressive aphasia. She does however follow some commands but not consistently following all commands. She is not able to contribute anything historically speaking. Otherwise I agree with the neurologic examination is documented above. Results - Laboratory Findings CBC and BMP: 09/13/18 04:39 09/13/18 03:31 Abnormal lab findings: Abnormal lab results Hgb 10.4 g/dL (11.5-15.4) L 09/13/18 04:39 Hct 34.1 % (35.3-44.9) L 09/13/18 04:39 MCH 26.5 pg (28.0-33.3) L 09/13/18 04:39 MCHC 30.5 g/dL (31.6-35.5) L 09/13/18 04:39 RDW 16.3 % (11.5-14.5) H 09/13/18 04:39 ABG pH 7.27 pH Units (7.32-7.45) L 09/13/18 05:43 ABG pCO2 46 mmHg (35-45) H 09/13/18 08:40 ABG pO2 75 mmHg (85-104) L 09/13/18 05:43 ABG Total CO2 29 mEq/L (20-26) H 09/13/18 05:43 ABG O2 Saturation 92 % (95-98) L 09/13/18 05:43 BUN 30 mg/dL (6-20) H 09/13/18 03:31 Creatinine 1.56 mg/dL (0.60-1.20) H 09/13/18 03:31 Est GFR ( Amer) 43 (> 60) L 09/13/18 03:31 Est GFR (Non-Af Amer) 36 (> 60) L 09/13/18 03:31 Glucose 298 mg/dL (70-105) H 09/13/18 03:31 POC Glucose 121 mg/dL (70-99) H 09/13/18 16:07 Calculated Osmolality 313 (280-300) H 09/13/18 03:31 Lactic Acid 3.3 mmol/L (0.5-2.2) H 09/13/18 08:39 Total Bilirubin 0.2 mg/dL (0.3-1.0) L 09/13/18 03:31 Alkaline Phosphatase 109 Units/L (34-104) H 09/13/18 03:31 Ur Specific [place] 1.027 (1.010-1.025) H 09/13/18 04:10 Urine Glucose (UA) >=1000 mg/dL (Normal) H 09/13/18 04:10 Salicylates < 2.5 mg/dL (15.0-30.0) L 09/13/18 03:31 Acetaminophen < 10 mcg/mL (10-20) L 09/13/18 03:31 U Benzodiazepines Scrn Positive ng/mL (Damfqq=075) H 09/13/18 04:10
[2018-09-13] MEDS: Ringers Solution, Lactated 1,000 ML IVC SCH ×2 (11:52→14:32)
[2018-09-13] MEDS: Insulin LISPRO 300 UNITS/3 ML VIAL SQ SCH ×2 (11:53→18:10)
[2018-09-13] MEDS ORDERED: Insulin LISPRO 300 UNITS/3 ML VIAL SQ SCH ×2 (12:00→21:00)
[2018-09-13 12:28] LABS: Potassium,Urine < 2.0 mEq/L; Sodium, Urine < 10.0 mEq/L
--- NOTE | 2018-09-13 14:13 | Electrocardiograph Report ---
[facility] ZuzuChe Test Date: 2018-09-13 Pat Name: More Farrell Department: [id number] Room: 10 Gender: F Summer Analyst: : 1970 Requested By: [id number] Order Number: [id number] Reading MD: Walker Enamorado Measurements Intervals [place] Rate: 89 P: 62 NH: 139 QRS: 62 QRSD: 83 T: 55 QT: 381 QTc: 464 Interpretive Statements Sinus rhythm Low voltage, precordial leads Electronically Signed On 09-13-2018 14:12:11 EDT by Walker Enamorado
--- NOTE | 2018-09-13 16:34 | EEG/EMG/Oth Biometrics Report ---
EEG Procedure Report EEG Procedure: Routine EEG Procedure Note: This is a report of a 21 channel bipolar and referential montage EEG recorded on a patient with mental status changes upon admission which have improved to some extent. There is no posterior dominant alpha rhythm identified during the recording. A resting rhythm consists of mixed delta and theta frequencies with occasional superimposed beta frequencies. From the outset, triphasic waves are identified by hemispherically. These persist throughout much of the recording. Hyperventilation is not performed in recording. There is no normal sleep architecture identified during the study. Photic scintillations performed and does not produce a driving response. The EKG rhythm strip reveals normal sinus rhythm at 72 bpm. Impressions: This EEG recording was abnormal and is consistent with moderate to severe generalized encephalopathy. Is no evidence of epileptiform activity identified during the study. Comment: Triphasic waves are commonly associated with hepatic or renal encephalopathy however may be due to other generalized medical disturbances. Including toxic, metabolic. Please correlate clinically.
[2018-09-13] MEDS: *HR* Heparin 5,000 UNIT/ML VIAL SQ SCH (18:28)
[2018-09-14] MEDS: Insulin LISPRO 300 UNITS/3 ML VIAL SQ SCH ×4 (00:04→18:02)
[2018-09-14] MEDS: Ringers Solution, Lactated 1,000 ML IVC SCH (00:37)
[2018-09-14 04:39] LABS: Basophils # 0.1 K/mcL (0.0-0.2); Basophils % 0.6 %; Eosinophils # 0.4 K/mcL (0.0-0.6); Eosinophils % 3.7 %; Hematocrit 35.4 % (35.3-44.9); Immature Granulocytes % 0.3 % (0-4); Lymphocytes # 2.7 K/mcL (0.6-4.6); Lymphocytes % 28.8 %; Mean Corpuscular HGB Conc 31.1 g/dL (31.6-35.5); Mean Corpuscular Hemoglobin 27.2 pg (28.0-33.3); Mean Corpuscular Volume 87.4 fL (83.0-100.0); Mean Platelet Volume 9.8 fL (9.4-12.4); Monocytes # 0.5 K/mcL (0.0-1.3); Monocytes % 5.7 %; Neutrophils # 5.7 K/mcL (1.6-8.9); Platelet Count 228 K/mcL (140-400); Red Blood Count 4.05 M/mcL (3.82-4.97); Red Cell Distribution Width 16.3 % (11.5-14.5); Segmented Neutrophils % 60.9 %; White Blood Count 9.4 K/mcL (4.3-11.1)
[2018-09-14 04:59] LABS: BUN/Creatinine Ratio 13 (6-26); Blood Urea Nitrogen 12 mg/dL (6-20); Calcium 8.6 mg/dL (8.6-10.3); Carbon Dioxide 28 mEq/L (23-29); Chloride 107 mEq/L (98-107); Glucose 129 mg/dL (70-105); Osmolality,Calculated 297 (280-300); Potassium 3.2 mEq/L (3.5-5.1); Sodium 143 mEq/L (136-145); eGFR For African Americans > 60 (> 60); eGFR For Non-African Americans > 60 (> 60)
[2018-09-14 05:45] LABS: Phosphorous 1.6 mg/dL (2.7-4.5)
[2018-09-14] MEDS ORDERED: Potassium Phosphate 44 MEQ in 0.9 % Sodium Chloride 250 ML IVPB PRN (06:10)
[2018-09-14] MEDS ORDERED: Calcium Gluconate 1gm/50mL 1 GM/50 ML BAG IVPB PRN ×2 (06:10→18:46)
[2018-09-14] MEDS: *HR* Heparin 5,000 UNIT/ML VIAL SQ SCH ×2 (06:14→18:02)
--- NOTE | 2018-09-14 09:02 | Nephrology Progress Note ---
Date of Encounter: 09/14/18 Time of Encounter: 08:45 - Assessment and Plan (1) CKD (chronic kidney disease), stage III Current Visit: Yes Status: Acute Baseline is CKD III with Dr. Reynoso. Recent ELISSA in July of this year, GFR was 6, did not require HD. GFR is greater than 60 today. Urine sodium, potassium, calcium completed. RTA is a diagnosis by exclusion. UA ph noted to be 6. Carbon Dioxide is 28. Urine studies noted. This is most likely ELISSA on CKD not related to RTA, it is likely related to elevated lactic acid and polypharmacy. Per previous ED report, patient was instructed to decrease the dosage of several medications and f/u with PCP. I suggest decreasing Alprazoam, Tizanidine, and Gabapentin to see if AMS continues to improve. This should be done under the discretion of a provider, not up to the patient. Per the the event 6 weeks ago and this event is possibly related to her menstrual cycle. He also mentioned it to Dr. Reynoso at the patients OV on Wednesday09/09/[address] Reynoso made the referral for a BID CLERK exam that is still being scheduled. She denies any additional medication other than what is prescribed. Unsure if this is a contributing factor or not. At this time GFR is greater than 60 and electrolytes are being replaced, we will sign off at this time, please reconsult if needed. (2) Solitary kidney Current Visit: Yes Status: Acute Patient has functional solitary kidney , the left kidney is atrophic with approximately 31% split function status post nuclear Lasix renogram earlier in 2019, and the right kidney was near 68% function. (3) Toxic metabolic encephalopathy Current Visit: Yes Status: Acute Appears resolving. Per primary. Subjective Principal diagnosis: AMS Interval history: Agent seen and examined. Patient is much more alert today able to converse appropriately. Denies nausea, vomiting, or diarrhea. Denies chest pain or shortness of breath. Has been 10 he is at bedside and is a good historian. Objective - Vital Signs Vital signs: Vital Signs Temp Pulse Resp BP Pulse Ox 09/14/18 07:40 98.1 F 09/14/18 07:00 96 15 97 09/14/18 06:00 86 09/14/18 05:00 84 14 140/93 99 09/14/18 04:14 98.2 F 09/14/18 04:00 74 09/14/18 03:00 79 09/14/18 02:00 77 09/14/18 01:00 76 09/14/18 00:08 98.5 F 09/14/18 00:00 98 14 134/89 99 09/13/18 23:00 81 09/13/18 22:00 85 14 97 09/13/18 20:12 97.6 F 09/13/18 20:00 88 12 162/112 96 09/13/18 19:00 86 12 100 09/13/18 18:00 102 10 117/79 100 09/13/18 17:00 79 10 110/75 99 09/13/18 16:10 97.9 F 09/13/18 16:00 82 09/13/18 15:00 71 13 118/79 100 09/13/18 14:00 74 13 119/79 100 09/13/18 13:00 80 10 136/89 100 09/13/18 12:00 85 10 140/93 100 09/13/18 11:00 97.9 F 83 8 136/86 100 09/13/18 10:23 97.7 F 89 16 119/78 100 Intake and Output 09/13/18 09/14/18 09/14/18 23:59 07:59 15:59 Intake Total 1600 / 1600 Output Total 1200 / 1800 1900 / 1900 Balance -1200 / 200 -300 / -300 Intake: IV Fluids 1600 / 1600 Lactated Ringers 1,000 ML @ 100 1500 / 1500 mls/hr IVC .Q10H [facility]AL[facility] Rx#: [id number] Potassium Chloride 10 mEq/100mL 100 / 100 10 meq In 100 ml @ 100 mls/hr IVPB Q1H [facility]ALIA Rx#:[id number] Oral 0 / 0 Output: Urine 600 / 600 1900 / 1900 Straight Cath 600 / 1200 Other: Weight 66.1 kg Blood Glucose* 121 111 Patient Weight 09/14/18 23:59 Weight 66.1 kg - General Appearance General appearance: Present: well-developed, well-nourished EENT: Present: ATNC, hearing intact, vision intact Neck: Present: supple Respiratory: Present: clear Cardiology: Present: no edema, normal S1, normal S2 Gastrointestinal: Present: normoactive bowel sounds, no tenderness, no guarding Integumentary: Present: no rash, warm and dry Neurologic: Present: alert and oriented x3 Musculoskeletal: Present: no deformities, no erythema Psychiatric: Present: mood/affect appropriate, cooperative - Lab 09/14/18 04:20 09/14/18 04:20 Most recent lab results 09/14/18 04:20 Calcium 8.6 Phosphorus 1.6 L Magnesium 1.0 L Consult Discharge Plan - Plan Referrals: Kermit Yan MD [Primary Care Provider] -
[2018-09-14] MEDS ORDERED: Potassium Chloride Elixir 20 MEQ/15 ML UDC PO ONE (09:05)
--- NOTE | 2018-09-14 10:56 | Neurology Progress Note ---
<Brad Alfredo J - Last Filed: 09/14/18 10:56> Date of Encounter: 09/14/18 Time of Encounter: 10:56 Assessment and Plan (1) Toxic metabolic encephalopathy Current Visit: Yes Status: Acute The patient was seen in follow-up today for encephalopathy She is now back to baseline state, alert and oriented 4 without any focal neurological findings MRI of the brain was completed and found to be negative for acute intracranial abnormality, mass or lesion An EEG has been completed and was found to be abnormal and is consistent with moderate to severe generalized encephalopathy; no evidence of seizure activity On examination today the patient reports that although it was recommended that she decrease her medication doses of gabapentin and Xanax she has not. She states that she has suicidal ideation and after discussions with her PCP and p sychologist was felt that if she were to decrease her dose of Xanax this may further exacerbate her suicidal ideation. Currently, she denies any suicidal ideation or thoughts to harm self or others. With a nonfocal neurological exam today and the fact that she has returned to baseline status without any intervention appears that her encephalopathy is likely result of poor kidney function with decreased clearance in combination with multiple medications including Xanax, gabapentin, and BuSpar. As such, our recommendations are for a inpatient psychiatric consultation to discuss medication recommendations and to determine if there is an underlying psychiatric component contributing to her co ndition. Neurology will follow preipherally. Subjective Principal diagnosis: AMS Interval history: Seen in follow-up today for an altered mental state. Today, she is back to baseline status and alert and oriented 4 without any focal neurological deficits or complaints. Today she was able to discuss symptoms which brought her in for evaluation and is able to recollect events leading up to admission. I discussed the MRI and EEG findings as well as concerns regarding her medication doses in the setting of altered renal function and clearance. The patient verbalizes understanding. Her main concerns at this time are that if she were to decrease her Xanax dose she fears she will become suicidal. As such, I discussed that we are recommending a psychiatric evaluation. The patient is in agreement. Objective - Constitutional Vitals: Temp Pulse Resp BP Pulse Ox 98.1 F 90 12 136/94 99 09/14/18 07:40 09/14/18 10:00 09/14/18 10:00 09/14/18 10:00 09/14/18 10:00 Exam: Examination: General Examination: *CONSTITUTIONAL: Alert and oriented x3, no acute distress *GENERAL APPEARANCE OF PATIENT appears healthy and well groomed *EYES: pupils equal, round, reactive to light and accommodation, conjunctiva clear without masses or ulcerations, fundi normal. *CARDIOVASCULAR: no peripheral edema, distal temperature normal, dorsalis pedis pulses normal. Refer to vital signs * MUSCULOSKELETAL: *GAIT AND STATION: Deferred *ASSESSMENT OF MUSCLE STRENGTH IN THE UPPER AND LOWER EXTREMITIES bilateral deltoid, bicep, tricep, high reach operator strength, hip flexors ,anterior tibialis,5/5. Dorsiflexion of bilateral feet are unequal with strength deficit with left foot dorsiflexion greater than left. Left foot is 3/5 while the right foot is 5/5 *MUSCLE TONE IN THE UPPER AND LOWER EXTREMITIES normal. No abnormal movements, fasciculations or atrophy identified. Neurological: *ORIENTATION to person, situation, time and place *LANGUAGE AND FUNCTION no significant aphasia or dysarthia was noted. *ATTENTION AND CONCENTRATION are normal *LANGUAGE FUNCTION no significant aphasia or dysarthia was noted. *FUND OF KNOWLEDGE aware of current events, past history, vocabulary *MENTAL attention span and concentration normal. *CN II optic fundi were normal, no papilledema noted. *CN III,IV, PERRLA extraocular eye movements were full, no nystagmus and no ptosis noted. *CN V shows normal sensation and jaw opens symmetrically. *CN VII shows normal facial movement symmetrically, upper and lower leo aterally. *CN VIII shows no significant hearing loss on exam *CN IX-Xpalate elevated symmetrically *CN XI normal strength in the sternocleidomastoid muscles, symmetrical shoulder shrugging. *CN XII tongue protruded in the midline, with normal strength and movement. *SENSORY EXAMINATION light touch intact *REFLEXES: deep tendon reflexes were normal and symmetrical , grade 2/4 diffusely, no pathological reflexes were noted. *CEREBELLAR TESTING normal finger to nose, heel/knee/mo *PAIN LEVEL 0/10 Results - Laboratory Findings CBC and BMP: 09/14/18 04:20 09/14/18 04:20 Abnormal lab findings: Abnormal lab results Hgb 11.0 g/dL (11.5-15.4) L 09/14/18 04:20 Hct 34.1 % (35.3-44.9) L 09/13/18 04:39 MCH 27.2 pg (28.0-33.3) L 09/14/18 04:20 MCHC 31.1 g/dL (31.6-35.5) L 09/14/18 04:20 RDW 16.3 % (11.5-14.5) H 09/14/18 04:20 ABG pH 7.27 pH Units (7.32-7.45) L 09/13/18 05:43 ABG pCO2 46 mmHg (35-45) H 09/13/18 08:40 ABG pO2 75 mmHg (85-104) L 09/13/18 05:43 ABG Total CO2 29 mEq/L (20-26) H 09/13/18 05:43 ABG O2 Saturation 92 % (95-98) L 09/13/18 05:43 Potassium 3.2 mEq/L (3.5-5.1) L 09/14/18 04:20 BUN 30 mg/dL (6-20) H 09/13/18 03:31 Creatinine 1.56 mg/dL (0.60-1.20) H 09/13/18 03:31 Est GFR ( Amer) 43 (> 60) L 09/13/18 03:31 Est GFR (Non-Af Amer) 36 (> 60) L 09/13/18 03:31 Glucose 129 mg/dL (70-105) H 09/14/18 04:20 POC Glucose 111 mg/dL (70-99) H 09/14/18 00:04 Calculated Osmolality 313 (280-300) H 09/13/18 03:31 Lactic Acid 3.3 mmol/L (0.5-2.2) H 09/13/18 08:39 Phosphorus 1.6 mg/dL (2.7-4.5) L 09/14/18 04:20 Magnesium 1.0 mg/dL (1.6-2.6) L 09/14/18 04:20 Total Bilirubin 0.2 mg/dL (0.3-1.0) L 09/13/18 03:31 Alkaline Phosphatase 109 Units/L (34-104) H 09/13/18 03:31 Ur Specific Swatara 1.027 (1.010-1.025) H 09/13/18 04:10 Urine Glucose (UA) >=1000 mg/dL (Normal) H 09/13/18 04:10 Salicylates < 2.5 mg/dL (15.0-30.0) L 09/13/18 03:31 Acetaminophen < 10 mcg/mL (10-20) L 09/13/18 03:31 U Benzodiazepines Scrn Positive ng/mL (Pwbfot=954) H 09/13/18 04:10 - Diagnostic Findings Additional findings: Impressions: This EEG recording was abnormal and is consistent with moderate to severe generalized encephalopathy. Is no evidence of epileptiform activity identified during the study. MR/MR head/brain wo con IMPRESSION: Unremarkable exam. No acute intracranial abnormality or mass lesion. Consult Discharge Plan - Plan Referrals: Kermit Yan MD [Primary Care Provider] - <Kyle May - Last Filed: 09/14/18 15:06> Date of Encounter: 09/14/18 Assessment and Plan (1) Toxic metabolic encephalopathy Current Visit: Yes Status: Acute I have personally performed a hpaw-ud-nrny assessment of the patient and have reviewed the PA/CANVAS CUTTER note. My impressions are as follows: I agree with the assessment and plan as stated above. Patient is now back to her normal baseline status without any medical intervention other than supportive care. I am not convinced of any primary neurologic process here. I will reevaluate her at your request. 25 minutes was spent with the patient today which greater than 50% of that time was spent in [id number] contact which consisted of counseling and coordinating care. Subjective Interval history: The chart was reviewed, the patient was seen and examined independently. MRI sc an of the brain was unremarkable. Case was discussed with the COOPER APPRENTICE. I agree with his documentation of the history of present illness as stated above. Objective - Constitutional Vitals: Temp Pulse Resp BP Pulse Ox 98.1 F 76 12 136/94 99 09/14/18 07:40 09/14/18 12:00 09/14/18 10:00 09/14/18 10:00 09/14/18 10:00 Exam: I have personally performed a [id number]-[id number] assessment of the patient and have reviewed the PA/CANVAS CUTTER note. My impressions are as follows: I agree with the neurologic examination as documented above. Results - Laboratory Findings CBC and BMP: 09/14/18 04:20 09/14/18 13:00 Abnormal lab findings: Abnormal lab results Hgb 11.0 g/dL (11.5-15.4) L 09/14/18 04:20 Hct 34.1 % (35.3-44.9) L 09/13/18 04:39 MCH 27.2 pg (28.0-33.3) L 09/14/18 04:20 MCHC 31.1 g/dL (31.6-35.5) L 09/14/18 04:20 RDW 16.3 % (11.5-14.5) H 09/14/18 04:20 ABG pH 7.27 pH Units (7.32-7.45) L 09/13/18 05:43 ABG pCO2 46 mmHg (35-45) H 09/13/18 08:40 ABG pO2 75 mmHg (85-104) L 09/13/18 05:43 ABG Total CO2 29 mEq/L (20-26) H 09/13/18 05:43 ABG O2 Saturation 92 % (95-98) L 09/13/18 05:43 Potassium 3.2 mEq/L (3.5-5.1) L 09/14/18 04:20 BUN 30 mg/dL (6-20) H 09/13/18 03:31 Creatinine 1.56 mg/dL (0.60-1.20) H 09/13/18 03:31 Est GFR ( Amer) 43 (> 60) L 09/13/18 03:31 Est GFR (Non-Af Amer) 36 (> 60) L 09/13/18 03:31 Glucose 178 mg/dL (70-105) H 09/14/18 13:00 POC Glucose 130 mg/dL (70-99) H 09/14/18 11:18 Calculated Osmolality 313 (280-300) H 09/13/18 03:31 Lactic Acid 3.3 mmol/L (0.5-2.2) H 09/13/18 08:39 Phosphorus 1.7 mg/dL (2.7-4.5) L 09/14/18 13:00 Magnesium 1.0 mg/dL (1.6-2.6) L 09/14/18 04:20 Total Bilirubin 0.2 mg/dL (0.3-1.0) L 09/13/18 03:31 Alkaline Phosphatase 109 Units/L (34-104) H 09/13/18 03:31 Ur Specific Swatara 1.027 (1.010-1.025) H 09/13/18 04:10 Urine Glucose (UA) >=1000 mg/dL (Normal) H 09/13/18 04:10 Salicylates < 2.5 mg/dL (15.0-30.0) L 09/13/18 03:31 Acetaminophen < 10 mcg/mL (10-20) L 09/13/18 03:31 U Benzodiazepines Scrn Positive ng/mL (Bnktlv=717) H 09/13/18 04:10
--- NOTE | 2018-09-14 11:06 | Internal Med Progress Note ---
<Richard Bacon Radhika - Last Filed: 09/14/18 14:50> Hospitalist Progress Note - Encounter Date of Encounter: 09/14/18 Time of Encounter: 09:40 - Subjective Interval History: Ms. Farrell is a 48 year old female with history of CKD, solitary kidney, DM, presented to ED with altered mental status, She was admitted a month ago foe same chief complain . today patient was seen and examined she is doing better , she is 80% back top her baseline as she states , repond to most of the questions . She denies fever, chills , chest pain , SOB , nausea vomiting , diarrhea or constipation . - Exam Vitals: Temp Pulse Resp BP Pulse Ox 98.1 F 90 12 136/94 99 09/14/18 07:40 09/14/18 10:00 09/14/18 10:00 09/14/18 10:00 09/14/18 10:00 Exam: General: no acute distress , A&AX3, back to her baseline HEENT: Atraumatic, Normocephaly, sclera unicteric Neck: supple , Full ROM , trachea midline Cardiac: RRR , S1+. S2+ Lungs: Normal Breath Sounds Bilaterally, No Wheeze, Rales, Rhonchi Abdomen: Soft, Non-Tender ,no organomegaly , +bowel sounds Extremities: full ROM , no cyanosis Skin : intact , Normal color Psychiatric : normal affect, normal mood Nuero : alert, , oriented X3. cranial nerve II-XII intact, symmetric muscle strength bilaterally , decrease sensation of her right body side - Assessment and Plan (1) Toxic metabolic encephalopathy Current Visit: Yes Status: Acute Assessment and Plan: -patient presented with confusion She was admitted about one month ago with similar presentations -toxic metabolic encephalopathy is most likely due to polypharmacy and acidosis related to hypoxic and hypercapnic resp failure , patient was suggested to decrease the dose of her medication but likly she didn't respond -CT head : negative for stroke -MRI of head and brain also was unremarkable -Urine drug screen was positive for benzodiazepines -Lactic acid elevated at 5.5 could be due to medications such as metformin or acidosis related to hypoxic and hypercapnic resp failure -An EEG has been completed and was found to be abnormal and is consistent with moderate to severe generalized encephalopathy; no evidence of seizure activity - Nuero was consulted : and they said her encephalopathy is likely result of poor kidney function with decreased clearance in combination with multiple medications including Xanax, gabapentin, and BuSpar. and recommended inpatient psychiatric consultation -she is improving paln is to hold sedating medication replete electrolyte (2) Acute kidney injury superimposed on CKD Current Visit: No Status: Acute Assessment and Plan: -Baseline is CKD III ,shew had Recent ELISSA in July of this year, GFR was 6, did not require HD. - Nephro consulted and there was suspition this is RTA but was excluded later by nephro team that they think acidosis related to her resp status on presentation with high concern this is all polypharmacy related -her creatinine today is 0.9 improved -her ELISSA resolved with IVF -Repeat BMP at morning (3) Acute respiratory failure with hypoxia and hypercapnia Current Visit: Yes Status: Acute Assessment and Plan: condition resolved at time of addmission ABG done showed pH 7.27, pCO2 of 59, pO2 75 and bicarb 27. She had lactic acid elevated at 5.5. She was placed on bipap and ABG did improve. (4) Altered mental status Current Visit: No Status: Resolved Assessment and Plan: Most likley due to Toxic and Metabolic Encephalopathy, 2/2 polypharmacy and Acidosis related to hypoxic and hypercapnic resp failure Improving plan as above (5) Iron deficiency anemia Current Visit: No Status: Acute Assessment and Plan: this is achronic condition , her hemoglobin today is 11 (6) Solitary kidney Current Visit: Yes Status: Acute Assessment and Plan: Patient has functional solitary kidney , the left kidney is atrophic with approximately 31% split function status post nuclear Lasix renogram earlier in 2019, and the right kidney was near 68% function. - Time Spent with Patient Total time spent is greater than 50% in coordination of care (as documented) at patient's floor/unit and/or counseling patient: Internal Medicine: Result - Labs CBC & Chem 7: 09/14/18 04:20 09/14/18 13:00 Labs: Short CBC 09/14/18 Range/Units 04:20 WBC 9.4 (4.3-11.1) K/mcL Hgb 11.0 L (11.5-15.4) g/dL Hct 35.4 (35.3-44.9) % Plt Count 228 (140-400) K/mcL Neutrophils # 5.7 (1.6-8.9) K/mcL BMP 09/14/18 04:20 Sodium 143 Potassium 3.2 L Chloride 107 Carbon Dioxide 28 BUN 12 Creatinine 0.91 Glucose 129 H Calcium 8.6 - ABG Interpretation ABG results: ABG ABG pH 7.34 pH Units (7.32-7.45) 09/13/18 08:40 ABG pCO2 46 mmHg (35-45) H 09/13/18 08:40 ABG pO2 94 mmHg (85-104) 09/13/18 08:40 ABG O2 Saturation 97 % (95-98) 09/13/18 08:40 PT/INR, D-dimer PT 10.6 Seconds (9.4-12.1) 09/13/18 03:31 - Impressions Impressions Head CT 09/13/18 10:51 IMPRESSION: No acute intracranial abnormality. D/ / 09/13/2018 13:02:08 Kelley Rankin MD / beverly Interpreting Provider: Kelley Rankin MD Brain MRI 09/13/18 11:21 IMPRESSION: Unremarkable exam. No acute intracranial abnormality or mass lesion. D/ / Luis Ballesteros MD / Luis Ballesteros MD Interpreting Provider: Luis Ballesteros MD Consult Discharge Plan - Plan Referrals: Kermit Yan MD [Primary Care Provider] - <Mela Rome - Last Filed: 09/14/18 15:40> Hospitalist Progress Note - Encounter Date of Encounter: 09/14/18 - Exam Vitals: Temp Pulse Resp BP Pulse Ox 98.1 F 90 12 136/94 99 09/14/18 07:40 09/14/18 10:00 09/14/18 10:00 09/14/18 10:00 09/14/18 10:00 - Assessment and Plan (1) Anemia Current Visit: No Status: Acute (2) DVT prophylaxis Current Visit: No Status: Acute (3) Diabetes Current Visit: Yes Status: Acute (4) Solitary kidney Current Visit: Yes Status: Acute (5) CKD (chronic kidney disease), stage III Current Visit: Yes Status: Acute (6) Acute kidney injury superimposed on CKD Current Visit: No Status: Acute (7) Toxic metabolic encephalopathy Current Visit: Yes Status: Acute (8) Lactic acidosis Current Visit: Yes Status: Acute - Time Spent with Patient Total time spent is greater than 50% in coordination of care (as documented) at patient's floor/unit and/or counseling patient: Internal Medicine: Result - Labs CBC & Chem 7: 09/14/18 04:20 09/14/18 13:00 Labs: Short CBC 09/14/18 Range/Units 04:20 WBC 9.4 (4.3-11.1) K/mcL Hgb 11.0 L (11.5-15.4) g/dL Hct 35.4 (35.3-44.9) % Plt Count 228 (140-400) K/mcL Neutrophils # 5.7 (1.6-8.9) K/mcL BMP 09/14/18 04:20 Sodium 143 Potassium 3.2 L Chloride 107 Carbon Dioxide 28 BUN 12 Creatinine 0.91 Glucose 129 H Calcium 8.6 - ABG Interpretation ABG results: ABG ABG pH 7.34 pH Units (7.32-7.45) 09/13/18 08:40 ABG pCO2 46 mmHg (35-45) H 09/13/18 08:40 ABG pO2 94 mmHg (85-104) 09/13/18 08:40 ABG O2 Saturation 97 % (95-98) 09/13/18 08:40 PT/INR, D-dimer PT 10.6 Seconds (9.4-12.1) 09/13/18 03:31 - Impressions Impressions Head CT 09/13/18 10:51 IMPRESSION: No acute intracranial abnormality. D/ / 09/13/2018 13:02:08 Kelley Rankin MD / beverly Interpreting Provider: Kelley Rankin MD Brain MRI 09/13/18 11:21 IMPRESSION: Unremarkable exam. No acute intracranial abnormality or mass lesion. D/ / Luis Ballesteros MD / Luis Ballesteros MD Interpreting Provider: Luis Ballesteros MD - Attending Attestation I examined this patient and my medical decision-making was reviewed with the Resident Physician Dr Bacon. I agree with the documented findings, disposition and treatment plan as described except to the extent set forth below. Mrs Farrell is being observed for altered mental status and EILSSA on CKD Awake, significant other at bedside. She is interactive but still somewhat confused when talking. Family notes her to be significantly improved from presentation but not yet at baseline. She admits to chronci headache and neck pain that family notes is unchanged and chronic in nautre. She has no speech changes, weakness or numbness/tingling. She has no fevers chills abd pain, n/v. Had loose stool yesterday, none today. Denies taking extra doses of home meds. She is menstruating. no sob, fatigue or syncope, no heavier than usual bleeding. No cough or cold or wheezing. Family did not she started taking zanafex again and changes seem to line up with new med. Nephro team at bedside and feel this is medication related and will be contacting PCP as agree these sedating meds need weaned. Entertainer & Comic informed me Dr Reynoso already referred her to wage hand for routine wage hand care in outpt setting given her anemia with menstruation. gen- alert, awake,appears stated age eyes- pupils equal round , eom intact cv- reg rate and rhythm, normal s1,s2,no le edema lungs- ctabl, no wheezing, rhonchi or crackles, normal resp effort on room air abd- soft, non tender, non distended, + bs neuro- AAOx3, CN grossly intact, strength intact and equal throughout ELISSA on CKD III, resolved with IVFs -as d/w nephro team do not think this is RTA, rather acidosis related to her resp status on presentation with high concern this is all polypharmacy related Toxic and Metabolic Encephalopathy, 2/2 polypharmacy and Acidosis related to hypoxic and hypercapnic resp failure Improving -MRI, CT reviewed and unremarkable -EEG without epileptiform activity but findings consistent with renal/toxic encelopathy -suspect this is not likley related to anemia with menstruation -HOLD sedating meds gabapentin and zanaflex, reduce dose of xanax to 0.5 mg TID prn, neuro is recommending inpt psycho consult -last time admitted with same thing and xanax dose reduced and zanaflex held Hypoxic and Hypercapnic resp failure- resolved , was on bipap on admit, now stable on room air Hypophosphatemia- IV repletion Hypomagnesemia- IV repletion Hypokalemia- replete -cont to monitor <Richard Bacon I - Last Filed: 09/14/18 14:50> (4) Altered mental status Qualifiers: Altered mental status type: unspecified Qualified Code(s): R41.82 - Altered mental status, unspecified <Mela Rome M - Last Filed: 09/14/18 15:40> (1) Anemia Qualifiers: Anemia type: unspecified type Qualified Code(s): D64.9 - Anemia, unspecified (3) Diabetes Qualifiers: Diabetes mellitus type: type 2 Diabetes mellitus manager long term care insulin use: unspecified [facility] insulin use status Diabetes mellitus complication status: with kidney complications Diabetes mellitus complication detail: with chronic kidney disease Chronic kidney disease stage: stage 3 (moderate) Qualified Code(s): E11.22 - Type 2 diabetes mellitus with diabetic chronic kidney disease; N18.3 - Chronic kidney disease, stage 3 (moderate)
[2018-09-14 13:40] LABS: BUN/Creatinine Ratio 10 (6-26); Blood Urea Nitrogen 10 mg/dL (6-20); Calcium 9.1 mg/dL (8.6-10.3); Carbon Dioxide 28 mEq/L (23-29); Chloride 102 mEq/L (98-107); Glucose 178 mg/dL (70-105); Magnesium 1.6 mg/dL (1.6-2.6); Osmolality,Calculated 297 (280-300); Phosphorous 1.7 mg/dL (2.7-4.5); Potassium 3.6 mEq/L (3.5-5.1); Sodium 142 mEq/L (136-145); eGFR For African Americans > 60 (> 60); eGFR For Non-African Americans > 60 (> 60)
[2018-09-14] MEDS ORDERED: Ondansetron 4 MG/2 ML VIAL IVP PRN ×2 (17:15→18:46)
[2018-09-14] MEDS ORDERED: ALPRAZolam 0.5 MG TABLET PO PRN ×2 (18:00→18:46)
[2018-09-14] MEDS ORDERED: Naloxone 0.4 MG/ML INJ IVP PRN (18:46)
[2018-09-14] MEDS ORDERED: *HR* Metoprolol 5 MG/5 ML VIAL IVP PRN (18:46)
[2018-09-14] MEDS ORDERED: Melatonin 3 MG TABLET PO SCH ×2 (21:00)
[2018-09-14] MEDS ORDERED: D5% in Water 1,000 ML IVC PRN (23:13)
[2018-09-14] MEDS ORDERED: *HR* Dextrose 50 % in Water (Syg) 50 ML SYRINGE IVP PRN (23:13)
[2018-09-14] MEDS ORDERED: Dextrose Gel 15 GM/37.5 ML TUBE PO PRN ×2 (23:13)
[2018-09-15 04:46] LABS: Basophils % 0.4 %; Eosinophils # 0.1 K/mcL (0.0-0.6); Eosinophils % 1.3 %; Hematocrit 35.9 % (35.3-44.9); Hemoglobin 11.3 g/dL (11.5-15.4); Immature Granulocytes % 0.1 % (0-4); Lymphocytes % 25.7 %; Mean Corpuscular HGB Conc 31.5 g/dL (31.6-35.5); Mean Corpuscular Volume 85.9 fL (83.0-100.0); Mean Platelet Volume 9.7 fL (9.4-12.4); Monocytes # 0.6 K/mcL (0.0-1.3); Monocytes % 7.6 %; Platelet Count 230 K/mcL (140-400); Red Blood Count 4.18 M/mcL (3.82-4.97); Red Cell Distribution Width 16.4 % (11.5-14.5); Segmented Neutrophils % 64.9 %; White Blood Count 7.7 K/mcL (4.3-11.1)
[2018-09-15 05:04] LABS: BUN/Creatinine Ratio 10 (6-26); Blood Urea Nitrogen 10 mg/dL (6-20); Calcium 9.1 mg/dL (8.6-10.3); Carbon Dioxide 23 mEq/L (23-29); Chloride 105 mEq/L (98-107); Glucose 160 mg/dL (70-105); Magnesium 2.1 mg/dL (1.6-2.6); Osmolality,Calculated 294 (280-300); Phosphorous 3.6 mg/dL (2.7-4.5); Potassium 3.7 mEq/L (3.5-5.1); Sodium 141 mEq/L (136-145); eGFR For African Americans > 60 (> 60); eGFR For Non-African Americans > 60 (> 60)
[2018-09-15] MEDS ORDERED: *HR* Heparin 5,000 UNIT/ML VIAL SQ SCH (06:00)
--- NOTE | 2018-09-15 07:36 | Internal Med Progress Note ---
<Mela Rome - Last Filed: 09/15/18 12:44> Hospitalist Progress Note - Encounter Date of Encounter: 09/15/18 - Exam Vitals: Temp Pulse Resp BP Pulse Ox 98.3 F 100 16 162/92 96 09/15/18 11:03 09/15/18 11:03 09/15/18 11:03 09/15/18 11:03 09/15/18 11:03 - Assessment and Plan (1) Anemia Current Visit: No Status: Acute (2) DVT prophylaxis Current Visit: No Status: Acute (3) Diabetes Current Visit: Yes Status: Acute (4) Solitary kidney Current Visit: Yes Status: Acute (5) CKD (chronic kidney disease), stage III Current Visit: Yes Status: Acute (6) Acute kidney injury superimposed on CKD Current Visit: No Status: Acute (7) Toxic metabolic encephalopathy Current Visit: Yes Status: Acute (8) Lactic acidosis Current Visit: Yes Status: Acute - Time Spent with Patient Total time spent is greater than 50% in coordination of care (as documented) at patient's floor/unit and/or counseling patient: Internal Medicine: Result - Labs CBC & Chem 7: 09/15/18 04:13 09/15/18 04:13 Labs: Short CBC 09/15/18 Range/Units 04:13 WBC 7.7 (4.3-11.1) K/mcL Hgb 11.3 L (11.5-15.4) g/dL Hct 35.9 (35.3-44.9) % Plt Count 230 (140-400) K/mcL Neutrophils # 5.0 (1.6-8.9) K/mcL BMP 09/14/18 09/15/18 13:00 04:13 Sodium 142 141 Potassium 3.6 3.7 Chloride 102 105 Carbon Dioxide 28 23 BUN 10 10 Creatinine 0.96 0.96 Glucose 178 H 160 H Calcium 9.1 9.1 - ABG Interpretation ABG results: ABG ABG pH 7.42 pH Units (7.32-7.45) 09/15/18 11:30 ABG pCO2 37 mmHg (35-45) 09/15/18 11:30 ABG pO2 74 mmHg (85-104) L 09/15/18 11:30 ABG O2 Saturation 95 % (95-98) 09/15/18 11:30 PT/INR, D-dimer PT 10.6 Seconds (9.4-12.1) 09/13/18 03:31 Consult Discharge Plan - Plan Referrals: Kermit Yan MD [Primary Care Provider] - 09/21/18 11:30 am - Attending Attestation I examined this patient and my medical decision-making was reviewed with the Resident Physician Dr Bacon. I agree with the documented findings, disposition and treatment plan as described except to the extent set forth below. Mrs Farrell is being observed for altered mental status and ELISSA on CKD Awake,son at bedside. She is sitting staring with her right arm lifted in air giving the thumbs up sign. resident at bedside. Also then neuro PLANT TENDER at bedside. She is slow to answer questions, denies pain, does not answer how her mood is or if she is hearing voices or seeing things (as nursing staff reported this morning). She admits to having had a headache earlier in morning. She does not recall meeting me yesterday (though earlier this morning she identified international relations professor whom saw her by name) gen- alert, awake,appears stated age eyes- pupils equal round , eom intact cv- reg rate and rhythm, normal s1,s2 lungs- ctabl, normal resp effort on room air abd- soft, non tender, non distended neuro- AAOx3, CN grossly intact, she will not lower her right arm, when I passively attempt to move it she resists with 5/5 strength. She permits passive movement of left UE. No rigidity of LUE noted. She does not follow command to assess neck ROM. Encephalopathy- clinically unable to determine at this time Initially Toxic and Metabolic Encephalopathy, suspected 2/2 polypharmacy and Acidosis related to hypoxic and hypercapnic resp failure Rule out infectious cause with LP today (no other identifiable infectious process, no wbc elevation or fevers) Now suspicious psychiatric component- Serotonin Syndrome? psychosis? Neurologic work up negative (imaging and EEG) and no focal neuro deficits -LP by IR later today, hold hep sq, scds in place, appreciate neuro input -appreciate psych input- hold cymbalta and buspar, will obtian benzo taper recs/dosing from psych today -check uds ELISSA on CKD III, resolved with IVFs -as d/w nephro team do not think this is RTA, rather acidosis related to her resp status on presentation Multiple Electrolyte abnormalities- corrected with IV repletion <Richard Bacon I - Last Filed: 09/15/18 15:20> Hospitalist Progress Note - Encounter Date of Encounter: 09/15/18 Time of Encounter: 08:10 - Subjective Interval History: today patient was seen , she was more altered than yesterday , she knew me and said Hi Dr Bacon , thanks for taking time and seeing me . son said she was having hallucinations last night and shouting . there is no fever or chills , no fatigue or syncope, no slurry speech , denies chest pain and shortness of breath - Exam Vitals: Temp Pulse Resp BP Pulse Ox 98.2 F 125 17 145/84 95 09/15/18 06:34 09/15/18 06:34 09/15/18 06:34 09/15/18 06:34 09/15/18 06:34 Exam: General: pstient is altered today , oriented to persons only HEENT: Atraumatic, Normocephaly, sclera unicteric Neck: supple , Full ROM , trachea midline Cardiac: RRR , S1+. S2+ Lungs: Normal Breath Sounds Bilaterally, No Wheeze, Rales, Rhonchi Abdomen: Soft, Non-Tender ,no organomegaly , +bowel sounds Extremities: full ROM , no cyanosis Skin : intact , Normal color Psychiatric : flat affect steering alot Nuero :confused at this morning , alert to persons only . cranial nerve II-XII intact, symmetric muscle strength bilaterally , decrease sensation of her right body side - Assessment and Plan (1) Toxic metabolic encephalopathy Current Visit: Yes Status: Acute Assessment and Plan: -cause is clinically unable to determine at this time Initially suspected due to polypharmacy and Acidosis related to hypoxic and hypercapnic resp failure also serotonin syndrom could be the cause also , nuero recommend LP to exclude infection . -today patient is more confused -her vitals are stable except for high blood pressure -CT head : negative for stroke -MRI of head and brain also was unremarkable -Urine drug screen was positive for benzodiazepines -An EEG has been completed and was found to be abnormal and is consistent with moderate to severe generalized encephalopathy; no evidence of seizure activity - we hold sedating medication gabapentin and zanaflex(tizanidine ), also we stopped xanax , buspiron and cymbalta and we added Valium 5mg TID according to psychiatric recommendation - her electrolyte today were normal k 3.7, mg 2.1 , phosphorus 3.6 , her glucose 160 , UA negative for infection , 2 blood cultures were done on 09/13 and still pending -psychiatric consult : serptonin syndrom is a possible cause , holding the cymbalta and buspar until she has had 48 hours of consistently clear mentation , to avoid benzo withdrawal taper with valium or another longer acting benzodiazepine. Finally, would recommend PRN haldol for psychosis and agitation. EKG was ordered to look to her baseline QTc before putting Haloperidol PRN - Nuero is consulted too and they recommend x-ray guided lumbar puncture to rule out SCANNING CLERK infectious etiology(no other identifiable infectious process, no wbc elevation or fevers) ; CSF to be sent for cultures (2) Acute kidney injury superimposed on CKD Current Visit: No Status: Acute Assessment and Plan: -Baseline is CKD III ,shew had Recent ELISSA in July of this year, GFR was 6, did not require HD. - Nephro consulted and there was suspition this is RTA but was excluded later by nephro team that they think acidosis related to her resp status on presentation with high concern this is all polypharmacy related -her creatinine today is 0.96 improved -her ELISSA resolved with IVF -Repeat BMP at morning (3) Acute respiratory failure with hypoxia and hypercapnia Current Visit: Yes Status: Acute Assessment and Plan: condition resolved at time of addmission ABG done showed pH 7.27, pCO2 of 59, pO2 75 and bicarb 27. She had lactic acid elevated at 5.5. She was placed on bipap and ABG did improve. (4) Altered mental status Current Visit: No Status: Resolved Assessment and Plan: Most likley due to Toxic and Metabolic Encephalopathy, 2/2 polypharmacy and Acidosis related to hypoxic and hypercapnic resp failure ALSO COULD BE SEROTONIN SYNDROM patient is confused today gain plan as above (5) Iron deficiency anemia Current Visit: No Status: Acute Assessment and Plan: this is achronic condition , her hemoglobin today is 11.3 . she has normal amount of menstrual bleeding , no other source of bleeding (6) Solitary kidney Current Visit: Yes Status: Acute Assessment and Plan: Patient has functional solitary kidney , the left kidney is atrophic with approximately 31% split function status post nuclear Lasix renogram earlier in 2 019, and the right kidney was near 68% function. her creatinine is normal - Time Spent with Patient Total time spent is greater than 50% in coordination of care (as documented) at patient's floor/unit and/or counseling patient: Internal Medicine: Result - Labs CBC & Chem 7: 09/15/18 04:13 09/15/18 04:13 Labs: Short CBC 09/15/18 Range/Units 04:13 WBC 7.7 (4.3-11.1) K/mcL Hgb 11.3 L (11.5-15.4) g/dL Hct 35.9 (35.3-44.9) % Plt Count 230 (140-400) K/mcL Neutrophils # 5.0 (1.6-8.9) K/mcL BMP 09/14/18 09/15/18 13:00 04:13 Sodium 142 141 Potassium 3.6 3.7 Chloride 102 105 Carbon Dioxide 28 23 BUN 10 10 Creatinine 0.96 0.96 Glucose 178 H 160 H Calcium 9.1 9.1 - ABG Interpretation ABG results: ABG ABG pH 7.34 pH Units (7.32-7.45) 09/13/18 08:40 ABG pCO2 46 mmHg (35-45) H 09/13/18 08:40 ABG pO2 94 mmHg (85-104) 09/13/18 08:40 ABG O2 Saturation 97 % (95-98) 09/13/18 08:40 PT/INR, D-dimer PT 10.6 Seconds (9.4-12.1) 09/13/18 03:31 <Mela Rome - Last Filed: 09/15/18 12:44> (1) Anemia Qualifiers: Anemia type: unspecified type Qualified Code(s): D64.9 - Anemia, unspecified (3) Diabetes Qualifiers: Diabetes mellitus type: type 2 Diabetes mellitus mcfp 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
[2018-09-15] MEDS: Insulin LISPRO 300 UNITS/3 ML VIAL SQ SCH ×3 (08:54→16:30)
--- NOTE | 2018-09-15 10:26 | Consult Note ---
Date of Encounter: 09/15/18 Time of Encounter: 10:00 Assessment & Recommendation (1) Toxic metabolic encephalopathy Current visit: Yes Status: Acute Assessment & Recommendation: Symptoms are not consistent with an underlying primary psychiatric condition. Agree with Toxic metabolic encephalopathy and treating underlying causes. Another consideration is if she has over taken any of her psychiatric medications prior to coming in. Son thinks this is unlikely as he believes his step-father hands out her medications; however this would still be on the differential as her presentation and lab abnormalities and vital sign instability can be seen with serotonin syndrome. I would recommend holding the cymbalta and buspar until she has had 48 hours of consistently clear mentation. She has currently only had one dose of the pRN xanax. Her son is unsure how often she was taking xanax at home but if she was taking it based on [facility] which shows last fill 09/02 of 90 pills for a 30 day supply that would suggest a total of 3mg a day and she has been getting it for at least the 3 years seen in [facility] which would set her up to be a risk of benzo withdrawal which would further complicate her presentation. As such, primary team can consider a taper with valium or another longer acting benzodiazepine. Finally, would recommend PRN haldol for psychosis and agitation. We will continue to follow. History of Present Illness Patient: new to practice Requesting Physician: Mela Rome Reason for consult: [facility] History of present illness: Ms. Farrell is a 48 year old female with history of CKD, solitary kidney, DM, presented to ED with altered mental status, She was admitted a month ago for same chief complain . She has been having waxing symptoms of altered consciousness and hallucinations. She is being treated by her primary team for toxic metabolic encephalopathy which they feel is most likely related to polypharmacy and acidosis related to hypoxic and hypercapnic resp failure. During her prior admission she was recommended to decrease her xanax and gabapentin but appears she did not do so. Notes from yesterday indicate she had periods of doing well, however when I saw her she was very confused and did not respond to most questions. She kept repeating "Johanne knows me best" at increasing rate and had some echolalia, repeating what her son would say. She was unable to logically answer any of my questions. She had waxy flexability, keeping her arm in the air after I moved it there and drifting it back up after I placed it back down. She had some cogwheeling. Her son indicated no prior psychiatric hospitalizations, a history of depression and anxiety but no psychosis before the last few month which coincided with her medical problems. CC: Mela Rome Past Med Surg Social Fam HX - Past Medical History Medical history: cancer, diabetes, other - Past Psychiatric History Psychiatric history: Reports: anxiety, depression. Denies: prior suicide attempt, previous psychiatric hospitalization Family psychiatric history: Unknown Family History of Suicide: Unknown - Past Surgical History Surgical History: , orthopedic, other (Cervical and lumbar fixation), other (Partial left nephrectomy) - Social History Smoking Status: Never smoker Smokeless Tobacco Status: No Alcohol use: rarely Drug use: none - Family History Mother History Unknown: Yes Medications & Allergies Dapagliflozin Propanediol [Farxiga] 10 mg PO DAILY 06/20/18 [History] Buspirone HCl [Buspar] 30 mg PO BID 07/25/18 [History] Duloxetine HCl [Cymbalta] 60 mg PO HS 07/25/18 [History] Metformin HCl [Glucophage] 1,000 mg PO DAILY 07/25/18 [History] Lisinopril [Zestril] 5 mg PO DAILY #30 tablet 07/29/18 [Rx] ALPRAZolam [Xanax 1 MG Tablet] 1 mg PO TID PRN 09/14/18 [History] Dulaglutide [Trulicity] 1.5 mg SQ FR 09/14/18 [History] Gabapentin 600 mg PO DAILY PRN 09/14/18 [History] Tizanidine HCl 4 mg PO TID PRN 09/14/18 [History] Allergy/AdvReac Type Severity Reaction Status Date / Time ketorolac [From Toradol] AdvReac Itching Verified 09/13/18 03:08 Penicillins AdvReac Itching Verified 09/13/18 03:08 Review of Systems ROS unobtainable: due to patient condition Psychiatry Exam - Constitutional Vitals: Temp Pulse Resp BP Pulse Ox 98.2 F 125 17 145/84 95 09/15/18 06:34 09/15/18 06:34 09/15/18 06:34 09/15/18 06:34 09/15/18 06:34 General appearance: disheveled - Musculoskeletal Gait: other (in bed) Station: stiff Strength & Tone: cog wheel, abnormal extension - Psychiatric Patient Orientation: No Person, No Time, No Place, No Circumstance Level of alertness: Responds to painful stimuli Behavior: uncooperative Psychomotor activity: Catatonic Eye Contact: No Eye Contact Mood Description: Other Patient description of mood: not able to describe Speech Volume: No speech (very little speech other than repeating phrases) Speech pattern: repetetive (very little speech other than repeating phrases) Language & Vocabulary: limited Thought Process: Disorganized Thought Content: Yes Preoccupation Perceptual Disturbances: Yes Auditory hallucinations Attention Span Ability: Unable to Focus, Unable to Sustain Attention Memory Description: Immediate Impaired, Recent Impaired, Remote Impaired Patient Reliability: Not Reliable Historian Fund of knowledge: No abstraction ability Intelligence Estimate: Average Judgment: Poor Insight: None Results - Labs Labs: Laboratory Last Values WBC 7.7 K/mcL (4.3-11.1) 09/15/18 04:13 RBC 4.18 M/mcL (3.82-4.97) 09/15/18 04:13 Hgb 11.3 g/dL (11.5-15.4) L 09/15/18 04:13 Hct 35.9 % (35.3-44.9) 09/15/18 04:13 MCV 85.9 fL (83.0-100.0) 09/15/18 04:13 MCH 27.0 pg (28.0-33.3) L 09/15/18 04:13 MCHC 31.5 g/dL (31.6-35.5) L 09/15/18 04:13 RDW 16.4 % (11.5-14.5) H 09/15/18 04:13 Plt Count 230 K/mcL (140-400) 09/15/18 04:13 MPV 9.7 fL (9.4-12.4) 09/15/18 04:13 Immature Gran % 0.1 % (0-4) 09/15/18 04:13 Seg Neutrophils % 64.9 % 09/15/18 04:13 Lymphocytes % 25.7 % 09/15/18 04:13 Monocytes % 7.6 % 09/15/18 04:13 Eosinophils % 1.3 % 09/15/18 04:13 Basophils % 0.4 % 09/15/18 04:13 Neutrophils # 5.0 K/mcL (1.6-8.9) 09/15/18 04:13 Lymphocytes # 2.0 K/mcL (0.6-4.6) 09/15/18 04:13 Monocytes # 0.6 K/mcL (0.0-1.3) 09/15/18 04:13 Eosinophils # 0.1 K/mcL (0.0-0.6) 09/15/18 04:13 Basophils # 0.0 K/mcL (0.0-0.2) 09/15/18 04:13 PT 10.6 Seconds (9.4-12.1) 09/13/18 03:31 INR 0.9 09/13/18 03:31 APTT 33.4 Seconds (26.0-36.0) 09/13/18 03:31 Sample Site R Radial 09/13/18 05:43 ABG pH 7.34 pH Units (7.32-7.45) 09/13/18 08:40 ABG pCO2 46 mmHg (35-45) H 09/13/18 08:40 ABG pO2 94 mmHg (85-104) 09/13/18 08:40 ABG HCO3 25 mEq/L (21-27) 09/13/18 08:40 ABG Total CO2 26 mEq/L (20-26) 09/13/18 08:40 ABG O2 Saturation 97 % (95-98) 09/13/18 08:40 ABG Base Excess -1 mEq/L (-2 to 3) 09/13/18 08:40 Wilmer Test N/A 09/13/18 05:43 O2 Delivery Device Room Air 09/13/18 08:40 Inspired O2 21.0 (1-15=lpm [id number]=%) 09/13/18 08:40 Sodium 141 mEq/L (136-145) 09/15/18 04:13 Potassium 3.7 mEq/L (3.5-5.1) 09/15/18 04:13 Chloride 105 mEq/L (98-107) 09/15/18 04:13 Carbon Dioxide 23 mEq/L (23-29) 09/15/18 04:13 BUN 10 mg/dL (6-20) 09/15/18 04:13 Creatinine 0.96 mg/dL (0.60-1.20) 09/15/18 04:13 Est GFR ( Amer) > 60 (> 60) 09/15/18 04:13 Est GFR (Non-Af Amer) > 60 (> 60) 09/15/18 04:13 BUN/Creatinine Ratio 10 (6-26) 09/15/18 04:13 Glucose 160 mg/dL (70-105) H 09/15/18 04:13 POC Glucose 151 mg/dL (70-99) H 09/14/18 19:46 Calculated Osmolality 294 (280-300) 09/15/18 04:13 Lactic Acid 1.9 mmol/L (0.5-2.2) 09/13/18 13:03 Calcium 9.1 mg/dL (8.6-10.3) 09/15/18 04:13 Phosphorus 3.6 mg/dL (2.7-4.5) 09/15/18 04:13 Magnesium 2.1 mg/dL (1.6-2.6) 09/15/18 04:13 Total Bilirubin 0.2 mg/dL (0.3-1.0) L 09/13/18 03:31 Direct Bilirubin 0.0 mg/dL (0.0-0.2) 09/13/18 03:31 Indirect Bilirubin 0.2 mg/dL (0.0-1.2) 09/13/18 03:31 AST 14 Units/L (13-39) 09/13/18 03:31 ALT 13 Units/L (7-52) 09/13/18 03:31 Alkaline Phosphatase 109 Units/L (34-104) H 09/13/18 03:31 Ammonia 37 mcmol/L (16-53) 09/13/18 03:31 Troponin I < 0.03 ng/mL (< 0.04) 09/13/18 03:31 Serum Total Protein 7.2 g/dL (6.4-8.9) 09/13/18 03:31 Albumin 4.2 g/dL (3.5-5.7) 09/13/18 03:31 Globulin 3.0 g/dL (2.4-3.5) 09/13/18 03:31 Albumin/Globulin Ratio 1.4 (1.1-2.2) 09/13/18 03:31 Urine Color Yellow (Yellow) 09/13/18 04:10 Urine Clarity Clear (Clear) 09/13/18 04:10 Urine pH 6.0 pH Units (5.0-8.0) 09/13/18 04:10 Ur Specific [place] 1.027 (1.010-1.025) H 09/13/18 04:10 Urine Protein Negative mg/dL (Neg-Trace) 09/13/18 04:10 Urine Glucose (UA) >=1000 mg/dL (Normal) H 09/13/18 04:10 Urine Ketones Negative mg/dL (Negative) 09/13/18 04:10 Urine Blood Negative (Negative) 09/13/18 04:10 Urine Nitrite Negative (Negative) 09/13/18 04:10 Urine Bilirubin Negative (Negative) 09/13/18 04:10 Urine Urobilinogen Normal mg/dL (Normal) 09/13/18 04:10 Ur Leukocyte Esterase Negative (Negative) 09/13/18 04:10 Ur Culture Indicated? NO (NO) 09/13/18 04:10 Urine Sodium < 10.0 mEq/L 09/13/18 11:45 Urine Potassium < 2.0 mEq/L 09/13/18 11:45 Urine Calcium 3.4 mg/dL 09/13/18 11:23 Salicylates < 2.5 mg/dL (15.0-30.0) L 09/13/18 03:31 Urine Opiates Screen Negative ng/mL (Bxjinc=554) 09/13/18 04:10 Ur Buprenorphine Scrn Negative ng/mL (Cutoff=5) 09/13/18 04:10 Acetaminophen < 10 mcg/mL (10-20) L 09/13/18 03:31 Ur Barbiturates Screen Negative ng/mL (Nzjkvp=014) 09/13/18 04:10 Ur Phencyclidine Scrn Negative ng/mL (Cutoff=25) 09/13/18 04:10 Ur Amphetamines Screen Negative ng/mL (Lkhhmq=7537) 09/13/18 04:10 U Benzodiazepines Scrn Positive ng/mL (Ivfwvy=802) H 09/13/18 04:10 Urine Cocaine Screen Negative ng/mL (Cutoff= 300) 09/13/18 04:10 U Marijuana (THC) Screen Negative ng/mL (Cutoff = 50) 09/13/18 04:10 Ur Drug Screen Interp See Below 09/13/18 04:10 Ethyl Alcohol < 10 mg/dL (Less than 10) 09/13/18 03:31 Consult Discharge Plan - Plan Referrals: Kermit Yan MD [Primary Care Provider] -
[2018-09-15 11:35] LABS: ABG Base Excess 0 mEq/L (-2 to 3); ABG HCO3 24 mEq/L (21-27); ABG Oxygen Saturation 95 % (95-98); ABG PCO2 37 mmHg (35-45); ABG PH 7.42 pH Units (7.32-7.45); ABG PO2 74 mmHg (85-104); ABG TCO2 25 mEq/L (20-26)
--- NOTE | 2018-09-15 13:07 | Neurology Progress Note ---
<Brad Alfredo - Last Filed: 09/15/18 13:04> Date of Encounter: 09/15/18 Time of Encounter: 11:00 Assessment and Plan (1) Toxic metabolic encephalopathy Current Visit: Yes Status: Acute Patient was seen in follow-up for TME; initially thought to be due to polypharmacy Yesterday she had returned to her baseline state However, overnight she began to become more confused, uncooperative and withdrawn However, I am not prevents that her condition is of an acute neurological process EKG obtained and found to be negative for seizure activity MRI of the brain was unremarkable Recommending psychiatry to see in consultation; agree that with rigidity, confusion, hallucinations and elevated HR that seratonin syndrome in the DDX -Agree with recommendation to withhold antipsychotics at this time I am repeating a urine drug screen IR is on consult for x-ray guided lumbar puncture to rule out REFINERY OPERATOR VISBREAKING infectious etiology; CSF to be sent for cultures Agree with holding sedating medications gabapentin and zanaflex and reduced doze of xanax Neuro will f/u in am. Further recommendations pending w/u and discussion with Dr. May Subjective Principal diagnosis: AMS Interval history: Chart reviewed, the patient was seen and examined at the bedside today. She was seen at the request of the internal medicine team for acute encephalopathy. Yesterday her condition was much improved and she is back to baseline mental state with fluid speech and appropriate cognition. However, overnight she is once again encephalopathic. Today she is confused and not cooperative. Upon my entering the room she appears to be somewhat catatonic. She is awake and alert but not attempting to answer questions. Further, she has her right arm and upward flexed position and will not let this provider manipulate her right upper extremity. Her son is in the room and reports that this is not her typical baseline behavior. Further, family denies the patient having any history of hallucinations but they do admit that she has a history of PTSD and has encountered multiple track experiences in the past. Objective - Constitutional Vitals: Temp Pulse Resp BP Pulse Ox 98.3 F 100 16 162/92 96 09/15/18 11:03 09/15/18 11:03 09/15/18 11:03 09/15/18 11:03 09/15/18 11:03 Exam: Examination: , T the patient's altered mental state General Examination: *CONSTITUTIONAL: Awake but not engaging. *GENERAL APPEARANCE OF PATIENT generally healthy and well groomed *EYES: pupils equal, round, reactive to light and accommodation, conjunctiva clear *CARDIOVASCULAR: no peripheral edema, distal temperature normal, dorsalis pedis pulses normal. Refer to vital signs * MUSCULOSKELETAL: *GAIT AND STATION: Deferred *ASSESSMENT OF MUSCLE STRENGTH IN THE UPPER AND LOWER EXTREMITIES bilateral deltoid, bicep, tricep, sustainment logistics analyst strength, hip flexors ,anterior tibialis,5/5. Dorsiflexion of bilateral feet are unequal with strength deficit with left foot dorsiflexion greater than left. Left foot is 3/5 while the right foot is 5/5 *MUSCLE TONE IN THE UPPER AND LOWER EXTREMITIES are somewhat rigid tone in her right arm and rigidity with manual neck manipulation. No abnormal movements, fasciculations or atrophy identified. *PSYCH: Today she almost appears catatonic. She is awake but not engaging in exam and is not participating in the interview. Instead, she refuses to make eye contact and will respond to questioning with inappropriate responses. Further, she has a right arm extended and locked and will not put it down at request and I am unable to move it with gentle manual manipulation. Neurological: *ORIENTATION difficult to determine given patient's current altered mental state *ATTENTION AND CONCENTRATION are abnormal; she is not engaging and appears to have some underlying psychiatric issue of unknown etiology Results - Laboratory Findings CBC and BMP: 09/15/18 04:13 09/15/18 04:13 Abnormal lab findings: Abnormal lab results Hgb 11.3 g/dL (11.5-15.4) L 09/15/18 04:13 Hct 34.1 % (35.3-44.9) L 09/13/18 04:39 MCH 27.0 pg (28.0-33.3) L 09/15/18 04:13 MCHC 31.5 g/dL (31.6-35.5) L 09/15/18 04:13 RDW 16.4 % (11.5-14.5) H 09/15/18 04:13 ABG pH 7.27 pH Units (7.32-7.45) L 09/13/18 05:43 ABG pCO2 46 mmHg (35-45) H 09/13/18 08:40 ABG pO2 74 mmHg (85-104) L 09/15/18 11:30 ABG Total CO2 29 mEq/L (20-26) H 09/13/18 05:43 ABG O2 Saturation 92 % (95-98) L 09/13/18 05:43 Potassium 3.2 mEq/L (3.5-5.1) L 09/14/18 04:20 BUN 30 mg/dL (6-20) H 09/13/18 03:31 Creatinine 1.56 mg/dL (0.60-1.20) H 09/13/18 03:31 Est GFR ( Amer) 43 (> 60) L 09/13/18 03:31 Est GFR (Non-Af Amer) 36 (> 60) L 09/13/18 03:31 Glucose 160 mg/dL (70-105) H 09/15/18 04:13 POC Glucose 151 mg/dL (70-99) H 09/14/18 19:46 Calculated Osmolality 313 (280-300) H 09/13/18 03:31 Lactic Acid 3.3 mmol/L (0.5-2.2) H 09/13/18 08:39 Phosphorus 1.7 mg/dL (2.7-4.5) L 09/14/18 13:00 Magnesium 1.0 mg/dL (1.6-2.6) L 09/14/18 04:20 Total Bilirubin 0.2 mg/dL (0.3-1.0) L 09/13/18 03:31 Alkaline Phosphatase 109 Units/L (34-104) H 09/13/18 03:31 Ur Specific [place] 1.027 (1.010-1.025) H 09/13/18 04:10 Urine Glucose (UA) >=1000 mg/dL (Normal) H 09/13/18 04:10 Salicylates < 2.5 mg/dL (15.0-30.0) L 09/13/18 03:31 Acetaminophen < 10 mcg/mL (10-20) L 09/13/18 03:31 U Benzodiazepines Scrn Positive ng/mL (Hrwcgu=706) H 09/13/18 04:10 Consult Discharge Plan - Plan Referrals: Kermit Yan MD [Primary Care Provider] - 09/21/18 11:30 am <Richard Bacon I - Last Filed: 07/25/19 15:01> Date of Encounter: 09/15/18 Assessment and Plan (1) Toxic metabolic encephalopathy Current Visit: Yes Status: Acute (2) Acute kidney injury superimposed on CKD Current Visit: No Status: Acute (3) Acute respiratory failure with hypoxia and hypercapnia Current Visit: Yes Status: Acute (4) Altered mental status Current Visit: No Status: Resolved Qualifiers: Altered mental status type: unspecified Qualified Code(s): R41.82 - Altered mental status, unspecified (5) Iron deficiency anemia Current Visit: No Status: Acute (6) Solitary kidney Current Visit: Yes Status: Acute Objective - Constitutional Vitals: Temp Pulse Resp BP Pulse Ox 98.3 F 100 16 162/92 96 09/15/18 11:03 09/15/18 11:03 09/15/18 11:03 09/15/18 11:03 09/15/18 11:03 Results - Laboratory Findings CBC and BMP: 09/15/18 04:13 09/15/18 04:13 Abnormal lab findings: Abnormal lab results Hgb 11.3 g/dL (11.5-15.4) L 09/15/18 04:13 Hct 34.1 % (35.3-44.9) L 09/13/18 04:39 MCH 27.0 pg (28.0-33.3) L 09/15/18 04:13 MCHC 31.5 g/dL (31.6-35.5) L 09/15/18 04:13 RDW 16.4 % (11.5-14.5) H 09/15/18 04:13 ABG pH 7.27 pH Units (7.32-7.45) L 09/13/18 05:43 ABG pCO2 46 mmHg (35-45) H 09/13/18 08:40 ABG pO2 74 mmHg (85-104) L 09/15/18 11:30 ABG Total CO2 29 mEq/L (20-26) H 09/13/18 05:43 ABG O2 Saturation 92 % (95-98) L 09/13/18 05:43 Potassium 3.2 mEq/L (3.5-5.1) L 09/14/18 04:20 BUN 30 mg/dL (6-20) H 09/13/18 03:31 Creatinine 1.56 mg/dL (0.60-1.20) H 09/13/18 03:31 Est GFR ( Amer) 43 (> 60) L 09/13/18 03:31 Est GFR (Non-Af Amer) 36 (> 60) L 09/13/18 03:31 Glucose 160 mg/dL (70-105) H 09/15/18 04:13 POC Glucose 151 mg/dL (70-99) H 09/14/18 19:46 Calculated Osmolality 313 (280-300) H 09/13/18 03:31 Lactic Acid 3.3 mmol/L (0.5-2.2) H 09/13/18 08:39 Phosphorus 1.7 mg/dL (2.7-4.5) L 09/14/18 13:00 Magnesium 1.0 mg/dL (1.6-2.6) L 09/14/18 04:20 Total Bilirubin 0.2 mg/dL (0.3-1.0) L 09/13/18 03:31 Alkaline Phosphatase 109 Units/L (34-104) H 09/13/18 03:31 Ur Specific [place] 1.027 (1.010-1.025) H 09/13/18 04:10 Urine Glucose (UA) >=1000 mg/dL (Normal) H 09/13/18 04:10 Salicylates < 2.5 mg/dL (15.0-30.0) L 09/13/18 03:31 Acetaminophen < 10 mcg/mL (10-20) L 09/13/18 03:31 U Benzodiazepines Scrn Positive ng/mL (Nuvvdc=687) H 09/13/18 04:10 <Kyle May - Last Filed: 09/15/18 17:27> Date of Encounter: 09/15/18 Time of Encounter: 17:06 Assessment and Plan (1) Toxic metabolic encephalopathy Current Visit: Yes Status: Acute Chart was reviewed, patient was seen and examined independently. Case was discussed with the ACTUARIAL ASSISTANT. At this juncture I am unable to identify any specific primary neurologic entity to attribute this presentation to. She has no nuchal rigidity, no rigidity of the arms or legs.. Patient is afebrile, vital signs have remained stable, labs are essentially normal. Yet she has waxing and waning mental status throughout the day without any significant decrease in her level of consciousness. EEG and MRI were normal. If the LP does not reveal evidence of a central nervous system infectious or inflammatory process then I would consider a CTA. Further recommendations will be made pending these results. I also plan to repeat an EEG, the first one was normal, and not reflective of an underlying encephalopathy. Time spent with this patient today was 40 minutes, of which greater than 50% of that time was spent in [id number] contact consisting of clinical exam, discussing PACs with her son who was present in the room and coordinating care. Subjective Interval history: The chart was reviewed, the patient was seen and examined. Neurology was consulted again due to waxing and waning symptoms of decreased responsiveness. Patient does appear to be catatonic. She makes eye contact however she appears very despondent reminiscent of a fugue state. She does not talk in complete sentences. She also speaks with loose association. She is not following commands. Her son is present who states that she has been "like a roller coaster all day" vital signs of been stable since admission. Her first EEG was normal, MRI scan of the brain was negative. Psychiatry is been consulted and is not convinced of a psychiatric process. The concerned about the possibility of serotonin syndrome. However vital signs are stable, patient is not rigid. Symptoms are waxing and waning. Patient has just come back from IR where the LP was completed. The results however of the LP are yet pending. Objective - Constitutional Vitals: Temp Pulse Resp BP Pulse Ox 98.2 F 70 17 160/91 95 09/15/18 15:31 09/15/18 15:31 09/15/18 15:31 09/15/18 15:31 09/15/18 15:31 Exam: Exam: Examination: General Examination: *CONSTITUTIONAL: Patient awake but very distant and despondent. Appears to be in any acute state. Minimally verbal. *GENERAL APPEARANCE OF PATIENT appears healthy and well groomed *EYES: pupils equal, round, reactive to light and accommodation, conjunc tiva clear without masses or ulcerations, fundi normal. *CARDIOVASCULAR: no peripheral edema, distal temperature normal, dorsalis pedis pulses normal. Refer to vital signs * MUSCULOSKELETAL: *GAIT AND STATION: Deferred *ASSESSMENT OF MUSCLE STRENGTH IN THE UPPER AND LOWER EXTREMITIES patient seems to have normal bulk and tone in all 4 extremities. I cannot examine her in the traditional manner because she is not following commands. However her extremities or not rigid, she is not warm to touch. No involuntary movements are present. *MUSCLE TONE IN THE UPPER AND LOWER EXTREMITIES normal. No abnormal movements, fasciculations or atrophy identified. Neurological: *ORIENTATION patient appears to be catatonic, not conversant *LANGUAGE AND FUNCTION patient has significant paucity of speech. She answers questions with one word responses. She also makes statements with loose association. *ATTENTION AND CONCENTRATION she does make eye contact *LANGUAGE FUNCTION catatonic with paucity of speech. *FUND OF KNOWLEDGE unable to assess. *MENTAL attention span is significantly impaired. *CN II optic fundi were normal, no papilledema noted. *CN III,IV, PERRLA extraocular eye movements were full, no nystagmus and no ptosis noted. *CN V shows normal sensation and jaw opens symmetrically. *CN VII shows normal facial movement symmetrically, upper and lower bilaterally. *CN VIII shows no significant hearing loss on exam *CN IX-Xpalate elevated symmetrically *CN XI normal strength in the sternocleidomastoid muscles, symmetrical shoulder shrugging. *CN XII tongue protruded in the midline, with normal strength and movement. *SENSORY EXAMINATION light touch intact *REFLEXES: deep tendon reflexes were normal and symmetrical , grade 2/4 diffusely, no pathological reflexes were noted. *CEREBELLAR TESTING normal finger to nose, heel/knee/mo *PAIN LEVEL 0/10 Results - Laboratory Findings CBC and BMP: 09/15/18 04:13 09/15/18 04:13 Abnormal lab findings: Abnormal lab results Hgb 11.3 g/dL (11.5-15.4) L 09/15/18 04:13 Hct 34.1 % (35.3-44.9) L 09/13/18 04:39 MCH 27.0 pg (28.0-33.3) L 09/15/18 04:13 MCHC 31.5 g/dL (31.6-35.5) L 09/15/18 04:13 RDW 16.4 % (11.5-14.5) H 09/15/18 04:13 ABG pH 7.27 pH Units (7.32-7.45) L 09/13/18 05:43 ABG pCO2 46 mmHg (35-45) H 09/13/18 08:40 ABG pO2 74 mmHg (85-104) L 09/15/18 11:30 ABG Total CO2 29 mEq/L (20-26) H 09/13/18 05:43 ABG O2 Saturation 92 % (95-98) L 09/13/18 05:43 Potassium 3.2 mEq/L (3.5-5.1) L 09/14/18 04:20 BUN 30 mg/dL (6-20) H 09/13/18 03:31 Creatinine 1.56 mg/dL (0.60-1.20) H 09/13/18 03:31 Est GFR ( Amer) 43 (> 60) L 09/13/18 03:31 Est GFR (Non-Af Amer) 36 (> 60) L 09/13/18 03:31 Glucose 160 mg/dL (70-105) H 09/15/18 04:13 POC Glucose 151 mg/dL (70-99) H 09/14/18 19:46 Calculated Osmolality 313 (280-300) H 09/13/18 03:31 Lactic Acid 3.3 mmol/L (0.5-2.2) H 09/13/18 08:39 Phosphorus 1.7 mg/dL (2.7-4.5) L 09/14/18 13:00 Magnesium 1.0 mg/dL (1.6-2.6) L 09/14/18 04:20 Total Bilirubin 0.2 mg/dL (0.3-1.0) L 09/13/18 03:31 Alkaline Phosphatase 109 Units/L (34-104) H 09/13/18 03:31 Ur Specific [place] 1.027 (1.010-1.025) H 09/13/18 04:10 Urine Glucose (UA) >=1000 mg/dL (Normal) H 09/13/18 04:10 Salicylates < 2.5 mg/dL (15.0-30.0) L 09/13/18 03:31 Acetaminophen < 10 mcg/mL (10-20) L 09/13/18 03:31 U Benzodiazepines Scrn Positive ng/mL (Sdbpbg=357) H 09/13/18 04:10
[2018-09-15] MEDS ORDERED: Isovue-370 500 ML BOTTLE IVP ONE (15:25)
[2018-09-15] MEDS: diazePAM 5 MG TABLET PO SCH ×2 (15:45→20:09)
[2018-09-15 17:21] LABS: Appearance,CSF Clear (Clear)
[2018-09-15 17:26] LABS: Red Blood Cell,CSF < 0.002 M/mcL
[2018-09-15 17:52] LABS: Glucose,CSF 110 mg/dL (40-70); Total Protein,CSF 67 mg/dL (15-45)
[2018-09-15] MEDS ORDERED: Insulin LISPRO 300 UNITS/3 ML VIAL SQ SCH ×2 (21:00)
[2018-09-16 01:30] LABS: Amphetamine Screen,Urine Negative ng/mL (Cutoff=1000); Barbiturate Screen,Urine Negative ng/mL (Cutoff=200); Benzodiazepines Screen,Urine Positive ng/mL (Cutoff=200); Cannabinoid Screen,Urine Negative ng/mL (Cutoff = 50); Cocaine Screen,Urine Negative ng/mL (Cutoff= 300); Opiate Screen,Urine Negative ng/mL (Cutoff=300); Phencyclidine Screen,Urine Negative ng/mL (Cutoff=25)
[2018-09-16 01:59] LABS: Basophils % 0.3 %; Eosinophils # 0.1 K/mcL (0.0-0.6); Eosinophils % 0.6 %; Hematocrit 38.1 % (35.3-44.9); Hemoglobin 11.9 g/dL (11.5-15.4); Immature Granulocytes % 0.2 % (0-4); Lymphocytes # 2.1 K/mcL (0.6-4.6); Lymphocytes % 23.1 %; Mean Corpuscular HGB Conc 31.2 g/dL (31.6-35.5); Mean Corpuscular Hemoglobin 26.5 pg (28.0-33.3); Mean Corpuscular Volume 84.9 fL (83.0-100.0); Mean Platelet Volume 9.6 fL (9.4-12.4); Monocytes # 0.7 K/mcL (0.0-1.3); Monocytes % 7.7 %; Platelet Count 236 K/mcL (140-400); Red Blood Count 4.49 M/mcL (3.82-4.97); Red Cell Distribution Width 16.5 % (11.5-14.5); Segmented Neutrophils % 68.1 %; White Blood Count 8.9 K/mcL (4.3-11.1)
[2018-09-16 02:29] LABS: BUN/Creatinine Ratio 14 (6-26); Blood Urea Nitrogen 13 mg/dL (6-20); Calcium 9.5 mg/dL (8.6-10.3); Carbon Dioxide 21 mEq/L (23-29); Chloride 105 mEq/L (98-107); Glucose 151 mg/dL (70-105); Magnesium 1.8 mg/dL (1.6-2.6); Osmolality,Calculated 291 (280-300); Phosphorous 3.4 mg/dL (2.7-4.5); Potassium 3.8 mEq/L (3.5-5.1); Sodium 139 mEq/L (136-145); eGFR For African Americans > 60 (> 60); eGFR For Non-African Americans > 60 (> 60)
[2018-09-16] MEDS ORDERED: Haloperidol Lactate 5 MG/ML VIAL ONE (04:38)
[2018-09-16] MEDS ORDERED: Haloperidol Lactate 5 MG/ML VIAL IVP ONE (04:41)
[2018-09-16 07:12] LABS: Alanine Aminotransferase 12 Units/L (7-52); Albumin 4.2 g/dL (3.5-5.7); Albumin/Globulin Ratio 1.4 (1.1-2.2); Alkaline Phosphatase 98 Units/L (34-104); Aspartate Amino Transferase 16 Units/L (13-39); Bilirubin,Direct 0.1 mg/dL (0.0-0.2); Bilirubin,Indirect 0.2 mg/dL (0.0-1.2); Bilirubin,Total 0.3 mg/dL (0.3-1.0); Creatine Kinase 51 Units/L (30-223); Total Protein 7.2 g/dL (6.4-8.9)
--- NOTE | 2018-09-16 08:40 | Internal Med Progress Note ---
Hospitalist Progress Note - Encounter Date of Encounter: 09/16/18 - Exam Vitals: Temp Pulse Resp BP Pulse Ox 98.3 F 116 16 113/77 96 09/16/18 03:27 09/16/18 07:29 09/16/18 07:29 09/16/18 07:29 09/16/18 07:29 - Assessment and Plan (1) Toxic metabolic encephalopathy Current Visit: Yes Status: Acute (2) Acute kidney injury superimposed on CKD Current Visit: No Status: Acute (3) Acute respiratory failure with hypoxia and hypercapnia Current Visit: Yes Status: Acute (4) Altered mental status Current Visit: No Status: Resolved (5) Iron deficiency anemia Current Visit: No Status: Acute (6) Solitary kidney Current Visit: Yes Status: Acute - Time Spent with Patient Total time spent is greater than 50% in coordination of care (as documented) at patient's floor/unit and/or counseling patient: Internal Medicine: Result - Labs CBC & Chem 7: 09/16/18 01:17 09/16/18 01:17 Labs: Short CBC 09/16/18 Range/Units 01:17 WBC 8.9 (4.3-11.1) K/mcL Hgb 11.9 (11.5-15.4) g/dL Hct 38.1 (35.3-44.9) % Plt Count 236 (140-400) K/mcL Neutrophils # 6.0 (1.6-8.9) K/mcL BMP 09/16/18 01:17 Sodium 139 Potassium 3.8 Chloride 105 Carbon Dioxide 21 L BUN 13 Creatinine 0.91 Glucose 151 H Calcium 9.5 Liver Function 09/16/18 Range/Units 01:17 Total Bilirubin 0.3 (0.3-1.0) mg/dL Direct Bilirubin 0.1 (0.0-0.2) mg/dL AST 16 (13-39) Units/L ALT 12 (7-52) Units/L Alkaline Phosphatase 98 (34-104) Units/L Albumin 4.2 (3.5-5.7) g/dL - ABG Interpretation ABG results: ABG ABG pH 7.42 pH Units (7.32-7.45) 09/15/18 11:30 ABG pCO2 37 mmHg (35-45) 09/15/18 11:30 ABG pO2 74 mmHg (85-104) L 09/15/18 11:30 ABG O2 Saturation 95 % (95-98) 09/15/18 11:30 PT/INR, D-dimer PT 10.6 Seconds (9.4-12.1) 09/13/18 03:31 - Impressions Impressions Lumbar Puncture Fluoroscopy 09/15/18 08:34 IMPRESSION: Successful fluoroscopic-guided lumbar puncture. D/ / Kelley Rankin MD / Kelley Rankin MD Interpreting Provider: Kelley Rankin MD Head CTA 09/15/18 15:25 IMPRESSION: 1. No acute intracranial abnormality. 2. Unremarkable CTA of the head. D/ / Robbie Kidd MD / Robbie Kidd MD Interpreting Provider: Robbie Kidd MD Consult Discharge Plan - Plan Referrals: Kermit Yan MD [Primary Care Provider] - 09/21/18 11:30 am (4) Altered mental status Qualifiers: Altered mental status type: unspecified Qualified Code(s): R41.82 - Altered mental status, unspecified
[2018-09-16] MEDS: Insulin LISPRO 300 UNITS/3 ML VIAL SQ SCH ×3 (09:23→17:11)
[2018-09-16] MEDS: diazePAM 5 MG TABLET PO SCH ×2 (09:23→16:12)
--- NOTE | 2018-09-16 09:49 | Neurology Progress Note ---
<Brad Alfredo - Last Filed: 09/16/18 09:38> Date of Encounter: 09/16/18 Assessment and Plan (1) Toxic metabolic encephalopathy Current Visit: Yes Status: Acute Initially suspected to be 2/2 polypharmacy and resp failure Patient initially improved and returned to baseline. Unfortunately she once again became encephalopathic Etiology unclear psychosis ? vs other. She is not rigid, no fevers on vitals review and CK is at expected range; speaks against Serotonin syndrome or NMS PHYSICIAN/OPHTHALMOLOGIST infection ruled out with normal LP. The rest of the neurological w/u is negative with normal CTA head, MRI brain and EEG Psych seeing in cs; rec holding cymbalta, buspar. She has been started on Valium TID and has somewhat improved today If repeat EEG is normal then her sx are not of an acute neurological process Further rec pending completion of an EEG Subjective Principal diagnosis: AMS Interval history: Chart was reviewed, the patient was seen and examined at the bedside today. She is seen in follow-up for acute encephalopathy. Clinically, there are no new neurological complaints overnight. This morning she continues to be encephalopathic and is confused. However, she is more engaging and will follow commands anticipate in the examination. Further, she is somewhat conversational and if given enough time can answer some questions appropriately. Nevertheless, she is not back to her baseline state. Yesterday we completed a CT angiogram of the head which was found to be unremarkable. Further, a lumbar puncture was completed and did not appear to indicate a PHYSICIAN/OPHTHALMOLOGIST infection. A CPK was checked this morning and found to be within expected range. At this time we are awaiting a repeat EEG. Plan of care was discussed with patient and family was at the bedside. Family denies any further questions. Objective - Constitutional Vitals: Temp Pulse Resp BP Pulse Ox 98.3 F 116 16 113/77 96 09/16/18 03:27 09/16/18 07:29 09/16/18 07:29 09/16/18 07:29 09/16/18 07:29 Exam: Examination: Complicated by patients altered mental state General Examination: *CONSTITUTIONAL: Alert to self only. Flat affect and appears to be encephalopathic *GENERAL APPEARANCE OF PATIENT appears older than stated age *EYES: pupils equal, round, reactive to light and accommodation, conjunctiva clear *CARDIOVASCULAR: tachycardic, no peripheral edema, distal temperature normal, dorsalis pedis pulses normal. Refer to vital signs * MUSCULOSKELETAL: *GAIT AND STATION: Deferred *ASSESSMENT OF MUSCLE STRENGTH IN THE UPPER AND LOWER EXTREMITIES bilateral deltoid, bicep, tricep, criminal profiler strength, hip flexors ,anterior tibialis, dorsoflexion of the foot /5 *MUSCLE TONE IN THE UPPER AND LOWER EXTREMITIES There is no rigidity on today's exam. Specifically no neck rigidity or pain with neck flexion and no lead pipe rigidity. Neurological: *ORIENTATION to person only. *LANGUAGE AND FUNCTION no significant aphasia or dysarthia was noted. *ATTENTION AND CONCENTRATION are abnormal. She continues to require redirection and is unable to maintain focus for prolonged periods of time. However, if given enough time she will converse. That being said she appears to have difficulty processing is somewhat inappropriate. *LANGUAGE FUNCTION no significant aphasia or dysarthia was noted. *FUND OF KNOWLEDGE unaware of current events, past history, vocabulary *MENTAL attention span and concentration abnormal. *CN II optic fundi were normal, no papilledema noted. *CN III,IV, PERRLA extraocular eye movements were full, no nystagmus and no ptosis noted. *CN V shows normal sensation and jaw opens symmetrically. *CN VII shows normal facial movement symmetrically, upper and lower bilaterally. *CN VIII shows no significant hearing loss on exam *CN IX-X palate elevated symmetrically *CN XI normal strength in the sternocleidomastoid muscles, symmetrical shoulder shrugging. *CN XII tongue protruded in the midline, with normal strength and mo vement. *SENSORY EXAMINATION light touch intact *REFLEXES: deep tendon reflexes were normal and symmetrical , grade /4 diffusely, no pathological reflexes were noted. *CEREBELLAR TESTING normal finger to nose *PAIN LEVEL 0/10 Results - Laboratory Findings CBC and BMP: 09/16/18 01:17 09/16/18 01:17 Abnormal lab findings: Abnormal lab results Hgb 11.3 g/dL (11.5-15.4) L 09/15/18 04:13 Hct 34.1 % (35.3-44.9) L 09/13/18 04:39 MCH 26.5 pg (28.0-33.3) L 09/16/18 01:17 MCHC 31.2 g/dL (31.6-35.5) L 09/16/18 01:17 RDW 16.5 % (11.5-14.5) H 09/16/18 01:17 ABG pH 7.27 pH Units (7.32-7.45) L 09/13/18 05:43 ABG pCO2 46 mmHg (35-45) H 09/13/18 08:40 ABG pO2 74 mmHg (85-104) L 09/15/18 11:30 ABG Total CO2 29 mEq/L (20-26) H 09/13/18 05:43 ABG O2 Saturation 92 % (95-98) L 09/13/18 05:43 Potassium 3.2 mEq/L (3.5-5.1) L 09/14/18 04:20 Carbon Dioxide 21 mEq/L (23-29) L 09/16/18 01:17 BUN 30 mg/dL (6-20) H 09/13/18 03:31 Creatinine 1.56 mg/dL (0.60-1.20) H 09/13/18 03:31 Est GFR ( Amer) 43 (> 60) L 09/13/18 03:31 Est GFR (Non-Af Amer) 36 (> 60) L 09/13/18 03:31 Glucose 151 mg/dL (70-105) H 09/16/18 01:17 POC Glucose 150 mg/dL (70-99) H 09/15/18 20:03 Calculated Osmolality 313 (280-300) H 09/13/18 03:31 Lactic Acid 3.3 mmol/L (0.5-2.2) H 09/13/18 08:39 Phosphorus 1.7 mg/dL (2.7-4.5) L 09/14/18 13:00 Magnesium 1.0 mg/dL (1.6-2.6) L 09/14/18 04:20 Total Bilirubin 0.2 mg/dL (0.3-1.0) L 09/13/18 03:31 Alkaline Phosphatase 109 Units/L (34-104) H 09/13/18 03:31 Ur Specific [place] 1.027 (1.010-1.025) H 09/13/18 04:10 Urine Glucose (UA) >=1000 mg/dL (Normal) H 09/13/18 04:10 CSF Glucose 110 mg/dL (40-70) H 09/15/18 16:33 CSF Total Protein 67 mg/dL (15-45) H 09/15/18 16:33 Salicylates < 2.5 mg/dL (15.0-30.0) L 09/13/18 03:31 Acetaminophen < 10 mcg/mL (10-20) L 09/13/18 03:31 U Benzodiazepines Scrn Positive ng/mL (Owtnto=461) H 09/16/18 00:58 Consult Discharge Plan - Plan Referrals: Kermit Yan MD [Primary Care Provider] - 09/21/18 11:30 am <Kyle May - Last Filed: 09/16/18 16:32> Date of Encounter: 09/16/18 Time of Encounter: 07:30 Assessment and Plan (1) Toxic metabolic encephalopathy Current Visit: Yes Status: Acute I have personally performed a [id number] assessment of the patient and have reviewed the PA/PROGRAMMING ENGINEER note. My impressions are as follows: From my perspective there is nothing that we have identified that suggest an underlying neurologic, or toxic metabolic cause for this patient's mental status changes. She has been afebrile, WBC count is normal, Corrina panel, BUN and creatinine are normal, AST ALT are normal, no imaging has been normal, lumbar puncture is not reflective of an PHYSICIAN/OPHTHALMOLOGIST infectious or inflammatory process. She has had 2 EEGs both of which are normal. At this juncture neurology will sign off. We will reevaluate at your request. 25 minutes was spent with the patient today. Greater than 50% of that time was spent [id number] contact which consisted of neurologic examination, discussing the case with family that was present, correlating care. Subjective Interval history: The chart was reviewed, the patient was seen and examined independently. The patient was discussed with the WORSHIP LEADER. I agree with his documentation of the history of present illness as stated above. I have read the EEG which was normal. Objective - Constitutional Vitals: Temp Pulse Resp BP Pulse Ox 98.7 F 110 14 147/96 94 09/16/18 14:57 09/16/18 14:57 09/16/18 14:57 09/16/18 14:57 09/16/18 14:57 Exam: I have personally performed a [id number] assessment of the patient and have reviewed the PA/PROGRAMMING ENGINEER note. My impressions are as follows: I agree with the documentation of the neurologic examination as above. Results - Laboratory Findings CBC and BMP: 09/16/18 01:17 09/16/18 01:17 Abnormal lab findings: Abnormal lab results Hgb 11.3 g/dL (11.5-15.4) L 09/15/18 04:13 Hct 34.1 % (35.3-44.9) L 09/13/18 04:39 MCH 26.5 pg (28.0-33.3) L 09/16/18 01:17 MCHC 31.2 g/dL (31.6-35.5) L 09/16/18 01:17 RDW 16.5 % (11.5-14.5) H 09/16/18 01:17 ESR 59 mm/hr (0-15) H 09/16/18 07:49 ABG pH 7.27 pH Units (7.32-7.45) L 09/13/18 05:43 ABG pCO2 46 mmHg (35-45) H 09/13/18 08:40 ABG pO2 74 mmHg (85-104) L 09/15/18 11:30 ABG Total CO2 29 mEq/L (20-26) H 09/13/18 05:43 ABG O2 Saturation 92 % (95-98) L 09/13/18 05:43 Potassium 3.2 mEq/L (3.5-5.1) L 09/14/18 04:20 Carbon Dioxide 21 mEq/L (23-29) L 09/16/18 01:17 BUN 30 mg/dL (6-20) H 09/13/18 03:31 Creatinine 1.56 mg/dL (0.60-1.20) H 09/13/18 03:31 Est GFR ( Amer) 43 (> 60) L 09/13/18 03:31 Est GFR (Non-Af Amer) 36 (> 60) L 09/13/18 03:31 Glucose 151 mg/dL (70-105) H 09/16/18 01:17 POC Glucose 150 mg/dL (70-99) H 09/15/18 20:03 Calculated Osmolality 313 (280-300) H 09/13/18 03:31 Lactic Acid 3.3 mmol/L (0.5-2.2) H 09/13/18 08:39 Phosphorus 1.7 mg/dL (2.7-4.5) L 09/14/18 13:00 Magnesium 1.0 mg/dL (1.6-2.6) L 09/14/18 04:20 Total Bilirubin 0.2 mg/dL (0.3-1.0) L 09/13/18 03:31 Alkaline Phosphatase 109 Units/L (34-104) H 09/13/18 03:31 Ur Specific [place] 1.027 (1.010-1.025) H 09/13/18 04:10 Urine Glucose (UA) >=1000 mg/dL (Normal) H 09/13/18 04:10 CSF Glucose 110 mg/dL (40-70) H 09/15/18 16:33 CSF Total Protein 67 mg/dL (15-45) H 09/15/18 16:33 Salicylates < 2.5 mg/dL (15.0-30.0) L 09/13/18 03:31 Acetaminophen < 10 mcg/mL (10-20) L 09/13/18 03:31 U Benzodiazepines Scrn Positive ng/mL (Oheufh=668) H 09/16/18 00:58
--- NOTE | 2018-09-16 11:46 | EEG/EMG/Oth Biometrics Report ---
EEG Procedure Report Date of procedure: 09/16/18 EEG Procedure: Routine EEG Procedure Note: This is a report of a 21 channel bipolar and referential montage EEG. Posterior dominant rhythm of 9 Hz moderate to low voltage alpha frequencies identified symmetrically in the posterior head regions. Superimposed beta frequencies and myogenic artifact are identified in all leads bilaterally. Hyperventilation is not performed in recording. There is no sleep architecture identified during the study. Photostimulation is performed and does not produce a driving response. The EKG rhythm strip reveals normal sinus rhythm at 96 bpm. Impressions: This EEG recording is within normal limits. There is no evidence of epileptiform activity identified during the study. Comment: Beta frequencies are indeed recognized as a normal variant, however may also be reflective of a host of metabolic conditions, anxiety, and medication effect namely benzodiazepines and barbiturates. Please correlate clinically.
--- NOTE | 2018-09-16 13:42 | Discharge Summary ---
<Mela Rome - Last Filed: 09/16/18 15:44> - NOTES TO OUTPATIENT PROVIDER Notes to Outpatient Provider: admitted with AMS as she has admitted in past. This time no improvement with holding of home sedating meds. Seen by neuro and psych. Extensive medical and neurologic work up unremarkable. Psych did not feel psychiatric in origin. Transferred to [facility] for second opinion of cause of mentation changes. Orders not resulted at time of discharge: Pending orders 09/13/18 04:39 Culture,Blood [BC] Stat 09/15/18 16:33 Culture,CSF [RM] Routine Date of Encounter: 09/16/18 - Discharge Diagnosis (1) Diabetes Priority: Secondary Status: Chronic Qualifiers: Diabetes mellitus type: type 2 Diabetes mellitus adjunct faculty for medical terminology insulin use: unspecified adjunct faculty for medical terminology insulin use status Diabetes mellitus complication status: with kidney complications Diabetes mellitus complication detail: with chronic kidney disease Chronic kidney disease stage: stage 3 (moderate) Qualified Code(s): E11.22 - Type 2 diabetes mellitus with diabetic chronic kidney disease; N18.3 - Chronic kidney disease, stage 3 (moderate) (2) Solitary kidney Priority: Secondary Status: Chronic (3) CKD (chronic kidney disease), stage III Priority: Secondary Status: Chronic (4) Toxic metabolic encephalopathy Priority: Primary Status: Acute (5) Lactic acidosis Priority: Secondary Status: Resolved Hospital course: Ms. Farrell is a 48 year old female - Time Spent with Patient Total time spent providing and/or coordinating discharge services: Time spent: Greater than 30 minutes (60 min) - Discharge Medications Prescriptions: New diazePAM [Valium] 5 mg PO TID tablet Dextrose 50 % in Water (Syg) [Dextrose 50% (Syg)] 25 ml IVP AD PRN syringe PRN Reason: Hypoglycemia Ondansetron [Zofran] 4 mg IVP Q8HR PRN vial PRN Reason: Nausea And Vomiting Insulin LISPRO [HumaLOG] 0 units SQ TIDAC vial Insulin LISPRO [HumaLOG] 0 units SQ HS vial Glucagon, Human Recombinant [Glucagen] 1 mg IM ONCE PRN vial PRN Reason: Hypoglycemia Naloxone [Narcan] 0.4 mg IVP Q2MPRN PRN inj PRN Reason: See Comments Discontinued Buspirone HCl [Buspar] 30 mg PO BID Duloxetine HCl [Cymbalta] 60 mg PO HS Metformin HCl [Glucophage] 1,000 mg PO DAILY Lisinopril [Zestril] 5 mg PO DAILY #30 tablet ALPRAZolam [Xanax 1 MG Tablet] 1 mg PO TID PRN PRN Reason: Anxiety Gabapentin 600 mg PO DAILY PRN PRN Reason: Pain Tizanidine HCl 4 mg PO TID PRN PRN Reason: Muscle Spasm Dulaglutide [Trulicity] 1.5 mg SQ FR Dapagliflozin Propanediol [Farxiga] 10 mg PO DAILY Home Medications: Dextrose 50 % in Water (Syg) [Dextrose 50% (Syg)] 25 ml IVP AD PRN syringe 09/16/18 [Rx] Glucagon, Human Recombinant [Glucagen] 1 mg IM ONCE PRN vial 09/16/18 [Rx] Insulin LISPRO [HumaLOG] 0 units SQ HS vial 09/16/18 [Rx] Insulin LISPRO [HumaLOG] 0 units SQ TIDAC vial 09/16/18 [Rx] Naloxone [Narcan] 0.4 mg IVP Q2MPRN PRN inj 09/16/18 [Rx] Ondansetron [Zofran] 4 mg IVP Q8HR PRN vial 09/16/18 [Rx] diazePAM [Valium] 5 mg PO TID tablet 09/16/18 [Rx] Allergies/Adverse Reactions: Allergy/AdvReac Type Severity Reaction Status Date / Time ketorolac [From Toradol] AdvReac Itching Verified 09/13/18 03:08 Penicillins AdvReac Itching Verified 09/13/18 03:08 Date of admission: 09/15/18 14:57 Primary care physician: Kermit Yan MD Consults: 09/13/18 10:25 Consult to Neurology [CONS] Routine Consulting Provider: [facility] Reason for Consult: encephalopathy Call Completed: Yes 09/13/18 10:26 Consult to Nephrology [CONS] Routine Consulting Provider: [facility]/ROSANNA/ARIA/BRISSA Reason for Consult: acidosis Call Completed: Yes 09/13/18 14:23 Consult to Interpret Exam [CONS] Routine Consulting Provider: Arabella Lopez I Consult to Interpret Exam: Interpret EEG 09/14/18 15:56 Consult to Psychiatry [CONS] Routine Consulting Provider: Psychiatry Daisy Reason consult: Altered mental status 09/16/18 12:04 Consult to Interpret Exam [CONS] Routine Consulting Provider: Kyle May Consult to Interpret Exam: Interpret EEG - Constitutional Vitals: Temp Pulse Resp BP Pulse Ox 98.7 F 110 14 147/96 94 09/16/18 14:57 09/16/18 14:57 09/16/18 14:57 09/16/18 14:57 09/16/18 14:57 - Patient Status Disposition: Transfer Critical Access Hosp Condition: Fair - Discharge Instructions Follow Up With: Kermit Yan MD [Primary Care Provider] - 09/21/18 11:30 am - Diet and Activity Activity: increase activity as tolerated Diet: diabetic diet - Attending Attestation I examined this patient and my medical decision-making was reviewed with the Resident Physician Dr Bacon. I agree with the documented findings, disposition and treatment plan as described except to the extent set forth below. Mrs Farrell was being observed for altered mental status and ELISSA on CKD. Her ELISSA on CKD resolved however mentation changes have persisted throughout admission. Teams involved in her care were Nephrology, Neurology and Psychiatry. She had an extensive medical work up as well as neuro work up that included routine labs, tele monitoring, pulse ox monitoring, CT head, MRI head, CTA head, EEG, Lumbar Puncture all of which did not yield a cause of symptoms. Psychiatry team here Dr Yan thought perhaps this could be Seratonin Syndrome or maybe catatonia but were not convinced and did not recommend inpt psych but rather transfer to a critical access hospital. Neurology agreed with transfer as do I as we have identified no medical illness that we can treat. Pt family agreeable to [facility] transfer where she was accepted under the hospitalist team. Awake,no family at bedside. she is staring at wall without blinking. She answers all my questions slowly, appropriately without making eye contact. She whispers responses. She follows command to lift her arms in air, but then leaves them there. Required multiple prompts to lower. She permits me to do exam. She denies pain, headache or neck ache. Denies chest pain. When asked if hearing voices or seeing things besides me in room she does not answer. When asked if she wants to harm herself taps finger to her chest repeatedly and says no. Denies wanting to harm anyone else. Does not answer if her mind is racing. She has not had anything to eat or drink so far today. gen- alert, awake,appears stated age, wide eyed eyes- pupils equal round , eom intact cv- reg rate and rhythm, normal s1,s2, no murmur, no le edema lungs- ctabl, normal resp effort on room air abd- soft, non tender, non distended neuro- AAOxperson, CN grossly intact, she does not formally test strength, moves all ext without focal deficits, normal tone, I cannot appreciate rigidity in passive movement of upper and lower ext. no nuchal rigidity psych- mood stated as "good", bizarre affect, appears suspicious, denies SI/HI, does not respond to question of AH/VH, I cannot appreciate her attending to internal stimuli Encephalopathy- clinically unable to determine at this time, cannot identify medical/neurologic cause, suspicion psychiatric Initially Toxic and Metabolic Encephalopathy, suspected 2/2 polypharmacy and Acidosis related to hypoxic and hypercapnic resp failure Ruled out infectious with LP as reviewed by neurology here (no other identifiable infectious process, no wbc elevation or fevers) Now suspicious psychiatric component- Serotonin Syndrome, psychosis vs catatonia Neurologic work up negative and no focal neuro deficits -transfer to [facility] for further eval -cont holding gabapentin, cymbalta, zanaflex, and Xanax -Valium TID PO as per psych was nitated without change in status -she received a one time 0.5 mg Haldol overnight for agitation/running in halls/paranoid ELISSA on CKD III, resolved with IVFs Sinus tachycardia at times with agitation/anxiety Multiple Electrolyte abnormalities on admission- corrected with IV repletion on first day of admit Acute urinary retention w straight cath x1 09/16- recommend i/os monitoring and bladder scans as needed time spent on dc 60 min <Richard Bacon I - Last Filed: 09/16/18 16:15> - NOTES TO OUTPATIENT PROVIDER Notes to Outpatient Provider: Miss Farrell is admitted due to Altered mental sattus , she has prevous similar admition . Cause unknown . Orders not resulted at time of discharge: Pending orders 09/13/18 04:39 Culture,Blood [BC] Stat 09/15/18 16:33 Culture,CSF [RM] Routine Date of Encounter: 09/16/18 Time of Encounter: 09:30 - Discharge Diagnosis (1) Toxic metabolic encephalopathy Priority: Primary Status: Acute (2) Acute kidney injury superimposed on CKD Priority: Secondary Status: Resolved (3) Acute respiratory failure with hypoxia and hypercapnia Priority: Secondary Status: Acute (4) Altered mental status Priority: Secondary Status: Resolved Qualifiers: Altered mental status type: unspecified Qualified Code(s): R41.82 - Altered mental status, unspecified (5) Iron deficiency anemia Priority: Secondary Status: Acute (6) Solitary kidney Priority: Secondary Status: Acute Hospital course: Ms. Farrell is a 48 year old female with a PMH of CKD, DM, anxiety, depression, and kidney cancer who is s/p partial left nephrectomy. She was admitted due to altered mental status . On arrival to ED, a stroke alert was called. A stat CT head was negative. ABG done showed pH 7.27, pCO2 of 59, pO2 75 and bicarb 27. She had lactic acid elevated at 5.5. She was placed on bipap and ABG did improve . Urine drug screen was positive for benzodiazepines. She takes Neurontin, Buspar, Xanax at home. She was admitted about one month ago with similar presentations and was suggested to decrease the doses, not abruptly DC'ing Xanax and Neurontin because of potential for withdrawal . patient was diagnosed with toxic and metabolic encephalopathy through her staying here [facility] , nephrology and psychiatric doctors were consulted and the course was as below : toxic and metabolic encephalopathy -cause is clinically unable to determine at this time Initially suspected due to polypharmacy and Acidosis related to hypoxic and hypercapnic resp failure, serotonin syndrom or psychosis are possibilities too -she has waxing and waning mental status throughout the day without any significant decrease in her level of consciousness. -her vitals are stable except for high blood pressure - her electrolyte were normal ,CPK was checked this morning and found to be within expected rangeand hepatic panel was done and it is normal , Physical exam was negative for any neurological findings -CT head : negative for stroke -MRI of head and brain also was unremarkable -Urine drug screen was positive for benzodiazepines -An EEG has been completed and was found to have moderate to severe generalized encephalopathy but no evidence of seizure activity - UA negative for infection , 2 blood cultures were done on 09/13 and still pending -psychiatric consult : hold sedating medication gabapentin and zanaflex(tizanidine ), also stopped xanax , buspiron and cymbalta and we added Valium 5mg TID according to psychiatric recommendation and Haloperidol PRN, EKG was ordered to look to her baseline QTc before putting Haloperidol PRN and was normal - Nuero recommend x-ray guided lumbar puncture to rule out [employer] infectious neymar ology(no other identifiable infectious process, no wbc elevation or fevers) and the LP does not reveal evidence of a central nervous system infectious or inflammatory process - CTA was negative - repeat EEG came back normal too ( There is no evidence of epileptiform activity identified during the study.) About her ELISSA on CKD - Nephro consulted and there was suspicion this is RTA but was excluded later by nephro team that they think acidosis related to her resp status on presentation with high concern this is all polypharmacy related -her creatinine become normal later -her ELISSA resolved with IVF About Hypoxic and Hypercapnic resp failure- resolved , was on bipap on admit, now stable on room air She was admitted approximately 1-month ago for a similar event and during that admission it was advised to slowly taper Xanax and Neurontin and doses were decreased by the primary team prior to d/c. Discharge discussed with: patient, family - Time Spent with Patient Total time spent providing and/or coordinating discharge services: Date of admission: 09/15/18 14:57 Primary care physician: Kermit Yan MD Consults: 09/13/18 10:25 Consult to Neurology [CONS] Routine Consulting Provider: [facility] Reason for Consult: encephalopathy Call Completed: Yes 09/13/18 10:26 Consult to Nephrology [CONS] Routine Consulting Provider: [facility] Daisy/ROSANNA/ARIA/BRISSA Reason for Consult: acidosis Call Completed: Yes 09/13/18 14:23 Consult to Interpret Exam [CONS] Routine Consulting Provider: Arabella Lopez I Consult to Interpret Exam: Interpret EEG 09/14/18 15:56 Consult to Psychiatry [CONS] Routine Consulting Provider: Psychiatry Daisy Reason consult: Altered mental status 09/16/18 12:04 Consult to Interpret Exam [CONS] Routine Consulting Provider: Kyle May Consult to Interpret Exam: Interpret EEG Discharging clinician: Mela Rome Anticipated date of discharge: 09/16/18 - Constitutional Vitals: Temp Pulse Resp BP Pulse Ox 98.7 F 113 17 144/89 93 09/16/18 11:00 09/16/18 11:00 09/16/18 11:00 09/16/18 11:00 09/16/18 11:00 General appearance: Present: A&O X 1. Absent: answers questions appropriately Exam: . - Head Head exam: Present: atraumatic, normal inspection - Eye Eye exam: Present: EOMI, PERRL, sclera anicteric - Neck Neck exam general surgery: Present: full ROM, normal inspection, trachea midline - Respiratory Respiratory exam: Present: CTAB - Cardiovascular Cardiovascular exam: Present: RRR, +S1, +S2 - GI/Abdominal GI/Abdominal exam: Present: normal bowel sounds, soft - Neurological Exam Neurological exam: Present: altered, CN II-XII intact, reflexes normal, no focal deficits - Psychiatric Psychiatric exam: Present: flat affect - Patient Status Functional capacity at discharge: independent ambulation Overall status at discharge: patient is not back to baseline
--- NOTE | 2018-09-16 13:49 | Consult Note ---
Date of Encounter: 09/16/18 Time of Encounter: 12:30 Assessment & Recommendation (1) Toxic metabolic encephalopathy Status: Acute Assessment & Recommendation: Herber Tan Catatonia performed with results in the Exam portion of this note. Patient does meet criteria for catatonia at this time which given the waxing and waning course of catatonic symptoms does not appear psychiatric in origin at this time. Recommend increasing Valium to 10mg TID for catatonic symptomatology. Serotonin Syndrome remains on the differential, and while unlikely given patients previously reported history of adherence to prescription instructions for medications, continue to hold Buspar and Cymbalta and use caution with other serotonergic agents including Odansetron, Trazodone, SSRI's, SNRI's, MAOI's, and TCA's. Can use PRN haldol sparingly for psychosis. Agree with transfer to higher level of care at this time. ECT is another treatment consideration for severe catatonia so a hospital that has this service available should be considered. History of Present Illness Patient: known to practice within the last 3 years Requesting Physician: Mela Rome Reason for consult: Altered Mental Status History of present illness: Ms. Farrell is a 48 year old female with history of CKD, solitary kidney, DM, presented to ED with altered mental status. She is non verbal today to interview so collateral information was provided through her son who was at bedside. He reports she has "been this way since she got here." He admits she was talking Wednesday and notes from other providers reveal patient has been verbal with intermittent confusion throughout her hospitalization. She is in a postured position upon this provider entering room with arms raised at 45 degree angles, fixed gaze at the wall and face holding a grimace. She remains this way for approximately 4 minutes before engaging in purposeful movements of her hands with her gaze no longer fixed but instead focused on what her hands begin doing. She begins fiddling with monitors in a purposeful way and engages appropriately with her environment for several minutes before returning to a postured position without fixed gaze. She is diaphoretic and unable to verbally respond throughout the interview. Patients son admits to her being seen outpatient by [facility] but is unfamiliar with her diagnosis. He does admit to knowing she takes Xanax, Buspar and Cymbalta at home which is consistent with medication reconciliation. Patients son reports a similar episode of "her not moving" one month prior that "cleared up" but seems to be "off and on." Assessment and Plan 1. Toxic Metabolic Encephalopathy: Herber Tan Catatonia performed with results in the Exam portion of this note. Patient does meet criteria for catatonia at this time which given the waxing and waning course of catatonic symptoms does not appear psychiatric in origin at this time. Recommend increasing Valium to 10mg TID for catatonic symptomatology. Serotonin Syndrome remains on the differential, and while unlikely given patients previously reported history of adherence to prescription instructions for medications, continue to hold Buspar and Cymbalta and use caution with other serotonergic agents including Odansetron, Trazodone, SSRI's, SNRI's, MAOI's, and TCA's. Recommend transfer to higher level of care at this time. CC: Mela Rome Past Med Surg Social Fam HX - Past Medical History Medical history: cancer, diabetes, other - Past Psychiatric History Psychiatric history: Reports: anxiety, depression Past psychiatric history details: Unable to access patients outpatient records at this time. Patients son reports to previous episode of her "being stuck" which resolved after hospitalization on medical unit. Chart review revealed patient was diagnosed with toxic metabolic encephalopathy secondary to acute on chronic kidney disease, urinary retention, and leukocytosis with elevated creatinine of 7.34 and decreased GFR of 6 at that time. She was stabilized medically and her altered mental status cleared. Family psychiatric history: Unknown Family History of Suicide: Unknown - Past Surgical History Surgical History: , orthopedic, other (Cervical and lumbar fixation), other (Partial left nephrectomy) - Social History Smoking Status: Never smoker Smokeless Tobacco Status: No Alcohol use: rarely Drug use: none - Family History Mother History Unknown: Yes Medications & Allergies Dextrose 50 % in Water (Syg) [Dextrose 50% (Syg)] 25 ml IVP AD PRN syringe 09/16/18 [Rx] Glucagon, Human Recombinant [Glucagen] 1 mg IM ONCE PRN vial 09/16/18 [Rx] Insulin LISPRO [HumaLOG] 0 units SQ HS vial 09/16/18 [Rx] Insulin LISPRO [HumaLOG] 0 units SQ TIDAC vial 09/16/18 [Rx] Naloxone [Narcan] 0.4 mg IVP Q2MPRN PRN inj 09/16/18 [Rx] Ondansetron [Zofran] 4 mg IVP Q8HR PRN vial 09/16/18 [Rx] diazePAM [Valium] 5 mg PO TID tablet 09/16/18 [Rx] Allergy/AdvReac Type Severity Reaction Status Date / Time ketorolac [From Toradol] AdvReac Itching Verified 09/13/18 03:08 Penicillins AdvReac Itching Verified 09/13/18 03:08 Review of Systems Psychiatric: Reports: anxiety (Per patients sons report), other (Unable to assess due to nonverbal patient. ) Psychiatry Exam - Constitutional Vitals: Temp Pulse Resp BP Pulse Ox 98.7 F 113 17 144/89 93 09/16/18 11:00 09/16/18 11:00 09/16/18 11:00 09/16/18 11:00 09/16/18 11:00 General appearance: age & developmentally appropriate, well-groomed, well- nourished Additional observations: Craven-Dominick Catatonia Rating Scale 1. Excitement: -O: Absent 2. Immobility/stupor; -1: Sits abnormally still, may interact briefly 3. Mutism: -3: No speech 4. Staring: -2: Gaze held longer than 20 second, occasionally shifts attention 5. Posturing/catalepsy: -2: Greater than one minute, less than 15 minutes 6. Grimacing: -3: Bizzarre expressions(s) or maintained more than 1 minute 7. Echopraxia/echolalia: -0: Absent 8. Sterotypy: -0: Absent 9. Mannerisms: -0: Absent 10.Verbigeration -0: Absent 11.Rigidity -3: Severe, cannot be repostured 12.Negativism -0: Absent 13.Waxy Flexibility -0: Absent 14.Withdrawal -2: Minimal PO intake/interaction for more than 1 day 15. Impulsivity -0: Absent 16.Automatic Obedience -0: Absent 17. [place] -Not tested 18. [place]: -3: Present 19. Ambitendency -0: Absent 20. Grasp Reflex: -Not tested 21. Perseveration -0: absent 22. Combativeness -0: absent 23. Autonomic Abnormality -2: Elevated pulse and diaphoresis Score: 21 Interpretation: with greater than 2 positive results in 1-14 (screening portion) patient does meet criteria per Craven-Dominick Catatonia scale at this time. Important to note that while Craven Dominick is often considered the gold standard screening for catatonia it does like controlled/large studies and data on its sensitivity and specificity is limited. - Musculoskeletal Station: stiff Strength & Tone: rigid - Psychiatric Patient Orientation: Yes Other (nonverbal patient unable to assess orientation due to catatonic like state) Level of alertness: Responds to painful stimuli Behavior: other (patient in catatonic like state with rigidity, posturing, and fixed gaze intermittent throughout interview) Psychomotor activity: Slowed Eye Contact: Fleeting Contact Mood Description: Other (Patient in catatonic like state with posturing, grimacing of face, and fixed gaze which partially resolved throughout interview without verbal response throughout. ) Patient description of mood: Unable to describe due to patient nonverbal status at time of interview Affect description: congruent with mood Speech Volume: No speech Speech pattern: non-verbal Language & Vocabulary: other (non-verbal) Thought Content: Yes Poverty of Content Perceptual Disturbances: No Reacting to internal stimuli, No Auditory hallucinations, No Visual hallucinations Attention Span Ability: Unable to Focus, Unable to Sustain Attention Patient Reliability: Not Reliable Historian Judgment: Poor Insight: None Results - Drug Levels and Toxicology Drug Levels and Toxicology: Drug Levels and Toxicity 09/13/18 09/16/18 11:42 00:58 Urine Opiates Screen Negative Ur Barbiturates Screen Negative Gabapentin 14.1 Ur Phencyclidine Scrn Negative Ur Amphetamines Screen Negative U Benzodiazepines Scrn Positive H Urine Cocaine Screen Negative U Marijuana (THC) Screen Negative - Labs Labs: Laboratory Last Values WBC 8.9 K/mcL (4.3-11.1) 09/16/18 01:17 RBC 4.49 M/mcL (3.82-4.97) 09/16/18 01:17 Hgb 11.9 g/dL (11.5-15.4) 09/16/18 01:17 Hct 38.1 % (35.3-44.9) 09/16/18 01:17 MCV 84.9 fL (83.0-100.0) 09/16/18 01:17 MCH 26.5 pg (28.0-33.3) L 09/16/18 01:17 MCHC 31.2 g/dL (31.6-35.5) L 09/16/18 01:17 RDW 16.5 % (11.5-14.5) H 09/16/18 01:17 Plt Count 236 K/mcL (140-400) 09/16/18 01:17 MPV 9.6 fL (9.4-12.4) 09/16/18 01:17 Immature Gran % 0.2 % (0-4) 09/16/18 01:17 Seg Neutrophils % 68.1 % 09/16/18 01:17 Lymphocytes % 23.1 % 09/16/18 01:17 Monocytes % 7.7 % 09/16/18 01:17 Eosinophils % 0.6 % 09/16/18 01:17 Basophils % 0.3 % 09/16/18 01:17 Neutrophils # 6.0 K/mcL (1.6-8.9) 09/16/18 01:17 Lymphocytes # 2.1 K/mcL (0.6-4.6) 09/16/18 01:17 Monocytes # 0.7 K/mcL (0.0-1.3) 09/16/18 01:17 Eosinophils # 0.1 K/mcL (0.0-0.6) 09/16/18 01:17 Basophils # 0.0 K/mcL (0.0-0.2) 09/16/18 01:17 ESR 59 mm/hr (0-15) H 09/16/18 07:49 PT 10.6 Seconds (9.4-12.1) 09/13/18 03:31 INR 0.9 09/13/18 03:31 APTT 33.4 Seconds (26.0-36.0) 09/13/18 03:31 Sample Site R Radial 09/15/18 11:30 ABG pH 7.42 pH Units (7.32-7.45) 09/15/18 11:30 ABG pCO2 37 mmHg (35-45) 09/15/18 11:30 ABG pO2 74 mmHg (85-104) L 09/15/18 11:30 ABG HCO3 24 mEq/L (21-27) 09/15/18 11:30 ABG Total CO2 25 mEq/L (20-26) 09/15/18 11:30 ABG O2 Saturation 95 % (95-98) 09/15/18 11:30 ABG Base Excess 0 mEq/L (-2 to 3) 09/15/18 11:30 Wilmer Test Positive 09/15/18 11:30 O2 Delivery Device Room Air 09/15/18 11:30 Inspired O2 21.0 (1-15=lpm [id number]=%) 09/13/18 08:40 Sodium 139 mEq/L (136-145) 09/16/18 01:17 Potassium 3.8 mEq/L (3.5-5.1) 09/16/18 01:17 Chloride 105 mEq/L (98-107) 09/16/18 01:17 Carbon Dioxide 21 mEq/L (23-29) L 09/16/18 01:17 BUN 13 mg/dL (6-20) 09/16/18 01:17 Creatinine 0.91 mg/dL (0.60-1.20) 09/16/18 01:17 Est GFR ( Amer) > 60 (> 60) 09/16/18 01:17 Est GFR (Non-Af Amer) > 60 (> 60) 09/16/18 01:17 BUN/Creatinine Ratio 14 (6-26) 09/16/18 01:17 Glucose 151 mg/dL (70-105) H 09/16/18 01:17 POC Glucose 150 mg/dL (70-99) H 09/15/18 20:03 Calculated Osmolality 291 (280-300) 09/16/18 01:17 Lactic Acid 1.9 mmol/L (0.5-2.2) 09/13/18 13:03 Calcium 9.5 mg/dL (8.6-10.3) 09/16/18 01:17 Phosphorus 3.4 mg/dL (2.7-4.5) 09/16/18 01:17 Magnesium 1.8 mg/dL (1.6-2.6) 09/16/18 01:17 Total Bilirubin 0.3 mg/dL (0.3-1.0) 09/16/18 01:17 Direct Bilirubin 0.1 mg/dL (0.0-0.2) 09/16/18 01:17 Indirect Bilirubin 0.2 mg/dL (0.0-1.2) 09/16/18 01:17 AST 16 Units/L (13-39) 09/16/18 01:17 ALT 12 Units/L (7-52) 09/16/18 01:17 Alkaline Phosphatase 98 Units/L (34-104) 09/16/18 01:17 Ammonia 37 mcmol/L (16-53) 09/13/18 03:31 Creatine Kinase 44 Units/L (30-223) 09/16/18 07:49 Troponin I < 0.03 ng/mL (< 0.04) 09/13/18 03:31 Serum Total Protein 7.2 g/dL (6.4-8.9) 09/16/18 01:17 Albumin 4.2 g/dL (3.5-5.7) 09/16/18 01:17 Globulin 3.0 g/dL (2.4-3.5) 09/16/18 01:17 Albumin/Globulin Ratio 1.4 (1.1-2.2) 09/16/18 01:17 Urine Color Yellow (Yellow) 09/13/18 04:10 Urine Clarity Clear (Clear) 09/13/18 04:10 Urine pH 6.0 pH Units (5.0-8.0) 09/13/18 04:10 Ur Specific [place] 1.027 (1.010-1.025) H 09/13/18 04:10 Urine Protein Negative mg/dL (Neg-Trace) 09/13/18 04:10 Urine Glucose (UA) >=1000 mg/dL (Normal) H 09/13/18 04:10 Urine Ketones Negative mg/dL (Negative) 09/13/18 04:10 Urine Blood Negative (Negative) 09/13/18 04:10 Urine Nitrite Negative (Negative) 09/13/18 04:10 Urine Bilirubin Negative (Negative) 09/13/18 04:10 Urine Urobilinogen Normal mg/dL (Normal) 09/13/18 04:10 Ur Leukocyte Esterase Negative (Negative) 09/13/18 04:10 Ur Culture Indicated? NO (NO) 09/13/18 04:10 Urine Sodium < 10.0 mEq/L 09/13/18 11:45 Urine Potassium < 2.0 mEq/L 09/13/18 11:45 Urine Calcium 3.4 mg/dL 09/13/18 11:23 CSF Volume 15.0 mL 09/15/18 16:33 CSF Appearance Clear (Clear) 09/15/18 16:33 CSF Color Colorless (Colorless) 09/15/18 16:33 CSF RBC < 0.002 M/mcL (0.000-0.002) 09/15/18 16:33 CSF Tot Nucleated Cells < 3 TNC/mcL (0-5) 09/15/18 16:33 CSF Seg Neutrophils Test Not Performed 09/15/18 16:33 CSF Lymphocytes % Test Not Performed 09/15/18 16:33 CSF Monocytes % Test Not Performed 09/15/18 16:33 CSF Eosinophils % Test Not Performed 09/15/18 16:33 CSF Basophils % Test Not Performed 09/15/18 16:33 CSF Glucose 110 mg/dL (40-70) H 09/15/18 16:33 CSF Xanth Comm Not Observed (Not Observe) 09/15/18 16:33 CSF Total Protein 67 mg/dL (15-45) H 09/15/18 16:33 Salicylates < 2.5 mg/dL (15.0-30.0) L 09/13/18 03:31 Urine Opiates Screen Negative ng/mL (Cafjvn=490) 09/16/18 00:58 Ur Buprenorphine Scrn Negative ng/mL (Cutoff=5) 09/16/18 00:58 Acetaminophen < 10 mcg/mL (10-20) L 09/13/18 03:31 Ur Barbiturates Screen Negative ng/mL (Qfinbu=897) 09/16/18 00:58 Gabapentin 14.1 ug/mL (2.0-20.0) 09/13/18 11:42 Ur Phencyclidine Scrn Negative ng/mL (Cutoff=25) 09/16/18 00:58 Ur Amphetamines Screen Negative ng/mL (Xkomad=3347) 09/16/18 00:58 U Benzodiazepines Scrn Positive ng/mL (Lglhju=553) H 09/16/18 00:58 Urine Cocaine Screen Negative ng/mL (Cutoff= 300) 09/16/18 00:58 U Marijuana (THC) Screen Negative ng/mL (Cutoff = 50) 09/16/18 00:58 Ur Drug Screen Interp See Below 09/16/18 00:58 Ethyl Alcohol < 10 mg/dL (Less than 10) 09/13/18 03:31 - Impressions Impressions Lumbar Puncture Fluoroscopy 09/15/18 08:34 IMPRESSION: Successful fluoroscopic-guided lumbar puncture. D/ / Kelley Rankin MD / Kelley Rankin MD Interpreting Provider: Kelley Rankin MD Head CTA 09/15/18 15:25 IMPRESSION: 1. No acute intracranial abnormality. 2. Unremarkable CTA of the head. D/ / Robbie Kidd MD / Robbie Kidd MD Interpreting Provider: Robbie Kidd MD Consult Discharge Plan - Plan Referrals: Kermit Yan MD [Primary Care Provider] - 09/21/18 11:30 am - Attending Attestation I examined this patient and my medical decision-making was reviewed with the Resident Physician. I agree with the documented findings, disposition and treatment plan as described except to the extent set forth below. Agree with mental status and HPI. Patient looks more cataonic today with waxy flexibility and purposeless movement. Herber Tan Catatonia performed with results in the Exam portion of this note. Patient does meet criteria for catatonia at this time which given the waxing and waning course of catatonic symptoms does not appear psychiatric in origin at this time. Recommend increasing Valium to 10mg TID for catatonic symptomatology. Serotonin Syndrome remains on the differential, and while unlikely given patients previously reported history of adherence to prescription instructions for medications, continue to hold Buspar and Cymbalta and use caution with other serotonergic agents including Odansetron, Trazodone, SSRI's, SNRI's, MAOI's, and TCA's. Can use PRN haldol sparingly for psychosis. Agree with transfer to higher level of care at this time. ECT is another treatment consideration for severe catatonia so a hospital that has this service available should be considered.
[2018-09-16 14:58] VITALS: BP 147/96
--- NOTE | 2018-09-16 16:13 | Electrocardiograph Report ---
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
--- NOTE | 2018-09-16 16:14 | Electrocardiograph Report ---
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
[2018-09-16] MEDS ORDERED: *HR* LORazepam 2 MG/ML VIAL IVP ONE (19:39)
[2018-09-16] MEDS ORDERED: *HR* LORazepam 2 MG/ML VIAL ONE (19:43)
== END 2018-09-16 20:10 | disposition critical access hospital (66) | DRG 91 ==
LOC: EMEROOARM 03:05 → SUATTDRO 07:42 → INTOOBSV 07:42 → 2ANU 07:42 → ICNU 11:14 → 3BNU 09-14 19:35
PROVIDERS: ADMIT Internal Medicine; ATTEND Internal Medicine

== ENCOUNTER 2019-08-11 14:17 | Inpatient (IN) ==
[2019-08-11] MEDS: Ringers Solution, Lactated 1,000 ML IVC SCH ×2 (15:12→23:01)
[2019-08-11] MEDS ORDERED: *HR* Promethazine 25 MG/ML VIAL IVP PRN ×2 (15:15→19:38)
[2019-08-11] MEDS ORDERED: *HR* Labetalol 20 MG/4 ML SYRINGE IVP PRN (15:15)
[2019-08-11] MEDS ORDERED: Gabapentin 300 MG CAPSULE PO ONE (15:20)
[2019-08-11] MEDS ORDERED: Clindamycin 900 MG/50 ML 900 MG/50 ML IV.SOLN IVPB ONE (16:31)
[2019-08-11] MEDS ORDERED: Lidocaine/EPI 1:100k 1% 20 ML VIAL ONE (16:50)
[2019-08-11] MEDS ORDERED: Dexamethasone 4 MG/ML VIAL ONE ×2 (17:03→17:30)
[2019-08-11] MEDS ORDERED: Ondansetron 4 MG/2 ML VIAL ONE ×2 (17:03→17:30)
[2019-08-11] MEDS ORDERED: *HR* FentaNYL (PF) 100 MCG/2 ML VIAL ONE (17:03)
[2019-08-11] MEDS ORDERED: Lidocaine -MPF 2% 2 ML VIAL ONE (17:03)
[2019-08-11] MEDS ORDERED: *HR* Propofol 200 MG/20 ML VIAL IVP ONE (17:04)
[2019-08-11] MEDS ORDERED: Naloxone 0.4 MG/ML INJ IVP PRN (19:38)
[2019-08-11] MEDS ORDERED: D5% in Water 1,000 ML IVC PRN (19:43)
[2019-08-11] MEDS ORDERED: *HR* Dextrose 50 % in Water (Vial) 50 ML VIAL IVP PRN (19:43)
[2019-08-11] MEDS ORDERED: Dextrose Gel 15 GM/37.5 ML TUBE PO PRN ×2 (19:43)
[2019-08-11] MEDS ORDERED: Vancomycin 1,250 MG/262.5 ML IV.SOLN IVPB ONE (20:03)
[2019-08-11 20:16] LABS: Basophils # 0.1 K/mcL (0.0-0.2); Basophils % 0.9 %; Eosinophils # 0.2 K/mcL (0.0-0.6); Eosinophils % 2.6 %; Hematocrit 34.9 % (35.3-44.9); Hemoglobin 11.1 g/dL (11.5-15.4); Immature Granulocytes % 0.5 % (0-4); Lymphocytes # 1.2 K/mcL (0.6-4.6); Mean Corpuscular HGB Conc 31.8 g/dL (31.6-35.5); Mean Corpuscular Hemoglobin 27.5 pg (28.0-33.3); Mean Corpuscular Volume 86.4 fL (83.0-100.0); Monocytes # 0.1 K/mcL (0.0-1.3); Monocytes % 1.7 %; Neutrophils # 6.5 K/mcL (1.6-8.9); Platelet Count 282 K/mcL (140-400); Red Blood Count 4.04 M/mcL (3.82-4.97); Red Cell Distribution Width 16.4 % (11.5-14.5); Segmented Neutrophils % 79.3 %; White Blood Count 8.2 K/mcL (4.3-11.1)
[2019-08-11 20:27] LABS: INR 1.1; Prothrombin Time 12.1 Seconds (9.4-12.1)
[2019-08-11 20:29] LABS: Activated Partial Thrombo Time 34.6 Seconds (26.0-36.0)
[2019-08-11] MEDS ORDERED: Vancomycin 1 EACH in 0.9 % Sodium Chloride 250 ML IVPB SCH (20:30)
[2019-08-11 20:35] LABS: Alanine Aminotransferase 14 Units/L (7-52); Albumin 4.7 g/dL (3.5-5.7); Albumin/Globulin Ratio 1.6 (1.1-2.2); Alkaline Phosphatase 71 Units/L (34-104); Aspartate Amino Transferase 21 Units/L (13-39); BUN/Creatinine Ratio 42 (6-26); Bilirubin,Total 0.2 mg/dL (0.3-1.0); Blood Urea Nitrogen 47 mg/dL (6-20); Calcium 9.6 mg/dL (8.6-10.3); Carbon Dioxide 31 mEq/L (23-29); Chloride 98 mEq/L (98-107); Glucose 133 mg/dL (70-105); Osmolality,Calculated 302 (280-300); Potassium 3.2 mEq/L (3.5-5.1); Sodium 139 mEq/L (136-145); Total Protein 7.7 g/dL (6.4-8.9); eGFR For African Americans > 60 (> 60); eGFR For Non-African Americans 52 (> 60)
[2019-08-11] MEDS: *HR* LORazepam 2 MG/ML VIAL IVP PRN (22:14)
[2019-08-12] MEDS: *HR* LORazepam 2 MG/ML VIAL IVP PRN ×4 (04:30→23:45)
[2019-08-12] MEDS ORDERED: Acetaminophen 325 MG TABLET PO PRN (06:30)
[2019-08-12] MEDS: *HR* Heparin 5,000 UNIT/ML VIAL SQ SCH ×3 (06:56→21:01)
[2019-08-12] MEDS: Gabapentin 300 MG CAPSULE PO SCH ×3 (08:09→21:01)
[2019-08-12] MEDS: tiZANidine 4 MG TABLET PO SCH ×3 (08:09→21:02)
[2019-08-12] MEDS: Ascorbic Acid 500 MG TABLET PO SCH (08:09)
[2019-08-12] MEDS: Insulin LISPRO 300 UNITS/3 ML VIAL SQ SCH ×3 (08:10→17:33)
[2019-08-12 10:01] LABS: Hematocrit 31.6 % (35.3-44.9); Hemoglobin 9.8 g/dL (11.5-15.4); Mean Corpuscular Hemoglobin 26.7 pg (28.0-33.3); Mean Corpuscular Volume 86.1 fL (83.0-100.0); Mean Platelet Volume 9.9 fL (9.4-12.4); Platelet Count 272 K/mcL (140-400); Red Blood Count 3.67 M/mcL (3.82-4.97); Red Cell Distribution Width 16.6 % (11.5-14.5); White Blood Count 8.2 K/mcL (4.3-11.1)
[2019-08-12 10:14] LABS: BUN/Creatinine Ratio 29 (6-26); Blood Urea Nitrogen 32 mg/dL (6-20); Calcium 9.1 mg/dL (8.6-10.3); Carbon Dioxide 29 mEq/L (23-29); Chloride 103 mEq/L (98-107); Glucose 210 mg/dL (70-105); Osmolality,Calculated 307 (280-300); Potassium 3.9 mEq/L (3.5-5.1); Sodium 142 mEq/L (136-145); eGFR For African Americans > 60 (> 60); eGFR For Non-African Americans 53 (> 60)
[2019-08-12] MEDS ORDERED: Melatonin 3 MG TABLET PO PRN (11:08)
[2019-08-12] MEDS: Melatonin 3 MG TABLET PO SCH (21:01)
[2019-08-12] MEDS: clonazePAM 0.5 MG TABLET PO PRN (22:44)
[2019-08-13 01:45] LABS: Hematocrit 28.7 % (35.3-44.9); Mean Corpuscular HGB Conc 31.4 g/dL (31.6-35.5); Mean Corpuscular Volume 89.1 fL (83.0-100.0); Platelet Count 233 K/mcL (140-400); Red Blood Count 3.22 M/mcL (3.82-4.97); Red Cell Distribution Width 17.1 % (11.5-14.5); White Blood Count 8.6 K/mcL (4.3-11.1)
[2019-08-13 02:01] LABS: BUN/Creatinine Ratio 27 (6-26); Blood Urea Nitrogen 26 mg/dL (6-20); Calcium 8.3 mg/dL (8.6-10.3); Carbon Dioxide 30 mEq/L (23-29); Chloride 107 mEq/L (98-107); Glucose 142 mg/dL (70-105); Osmolality,Calculated 303 (280-300); Potassium 3.5 mEq/L (3.5-5.1); Sodium 143 mEq/L (136-145); eGFR For African Americans > 60 (> 60); eGFR For Non-African Americans > 60 (> 60)
[2019-08-13] MEDS: *HR* Heparin 5,000 UNIT/ML VIAL SQ SCH ×3 (05:21→21:07)
[2019-08-13] MEDS: Insulin LISPRO 300 UNITS/3 ML VIAL SQ SCH ×3 (08:33→17:23)
[2019-08-13] MEDS: Ascorbic Acid 500 MG TABLET PO SCH (08:35)
[2019-08-13] MEDS: Gabapentin 300 MG CAPSULE PO SCH ×3 (08:35→21:07)
[2019-08-13] MEDS: tiZANidine 4 MG TABLET PO SCH ×3 (08:35→21:06)
[2019-08-13] MEDS: *HR* LORazepam 2 MG/ML VIAL IVP PRN ×2 (14:59→21:05)
[2019-08-13] MEDS: Ringers Solution, Lactated 1,000 ML IVC SCH (15:13)
[2019-08-13] MEDS: Melatonin 3 MG TABLET PO SCH (21:05)
[2019-08-13] MEDS ORDERED: Vancomycin 500 MG in 0.9 % Sodium Chloride Mini Bag 100 ML IVPB ONE (21:48)
[2019-08-13] MEDS: clonazePAM 0.5 MG TABLET PO PRN (23:27)
[2019-08-14 04:49] LABS: Hematocrit 31.3 % (35.3-44.9); Hemoglobin 9.3 g/dL (11.5-15.4); Mean Corpuscular HGB Conc 29.7 g/dL (31.6-35.5); Mean Corpuscular Hemoglobin 26.6 pg (28.0-33.3); Mean Corpuscular Volume 89.4 fL (83.0-100.0); Platelet Count 249 K/mcL (140-400); Red Cell Distribution Width 17.1 % (11.5-14.5); White Blood Count 9.5 K/mcL (4.3-11.1)
[2019-08-14 05:10] LABS: BUN/Creatinine Ratio 24 (6-26); Blood Urea Nitrogen 23 mg/dL (6-20); Calcium 8.7 mg/dL (8.6-10.3); Carbon Dioxide 30 mEq/L (23-29); Chloride 108 mEq/L (98-107); Glucose 144 mg/dL (70-105); Osmolality,Calculated 300 (280-300); Sodium 142 mEq/L (136-145); eGFR For African Americans > 60 (> 60); eGFR For Non-African Americans > 60 (> 60)
[2019-08-14] MEDS: *HR* Heparin 5,000 UNIT/ML VIAL SQ SCH ×3 (05:49→20:57)
[2019-08-14] MEDS: *HR* LORazepam 2 MG/ML VIAL IVP PRN (05:49)
[2019-08-14] MEDS: Insulin LISPRO 300 UNITS/3 ML VIAL SQ SCH ×3 (07:42→16:41)
[2019-08-14] MEDS: Ascorbic Acid 500 MG TABLET PO SCH (08:22)
[2019-08-14] MEDS: Gabapentin 300 MG CAPSULE PO SCH ×3 (08:22→20:57)
[2019-08-14] MEDS: tiZANidine 4 MG TABLET PO SCH ×2 (08:23→13:19)
[2019-08-14] MEDS ORDERED: tiZANidine 4 MG TABLET PO PRN (15:11)
[2019-08-14] MEDS: clonazePAM 0.5 MG TABLET PO PRN (16:43)
[2019-08-14] MEDS: Melatonin 3 MG TABLET PO SCH (20:57)
[2019-08-14] MEDS ORDERED: Vancomycin 1,500 MG/265 ML IV.SOLN IVPB SCH (22:00)
[2019-08-14] MEDS ORDERED: Vancomycin 1,250 MG/262.5 ML IV.SOLN IVPB SCH (22:00)
[2019-08-15] MEDS ORDERED: *HR* LORazepam 2 MG/ML VIAL IVP ONE (00:04)
[2019-08-15] MEDS: clonazePAM 0.5 MG TABLET PO PRN ×2 (00:25→11:15)
[2019-08-15] MEDS: *HR* Heparin 5,000 UNIT/ML VIAL SQ SCH ×2 (04:57→14:17)
[2019-08-15 07:56] LABS: Hematocrit 29.3 % (35.3-44.9); Hemoglobin 9.1 g/dL (11.5-15.4); Mean Corpuscular HGB Conc 31.1 g/dL (31.6-35.5); Mean Corpuscular Hemoglobin 27.7 pg (28.0-33.3); Mean Corpuscular Volume 89.1 fL (83.0-100.0); Platelet Count 229 K/mcL (140-400); Red Blood Count 3.29 M/mcL (3.82-4.97); Red Cell Distribution Width 17.1 % (11.5-14.5); White Blood Count 9.3 K/mcL (4.3-11.1)
[2019-08-15 08:17] LABS: BUN/Creatinine Ratio 25 (6-26); Blood Urea Nitrogen 26 mg/dL (6-20); Calcium 9.1 mg/dL (8.6-10.3); Carbon Dioxide 28 mEq/L (23-29); Chloride 107 mEq/L (98-107); Glucose 129 mg/dL (70-105); Osmolality,Calculated 296 (280-300); Potassium 3.8 mEq/L (3.5-5.1); Sodium 140 mEq/L (136-145); eGFR For African Americans > 60 (> 60); eGFR For Non-African Americans 56 (> 60)
[2019-08-15] MEDS: Insulin LISPRO 300 UNITS/3 ML VIAL SQ SCH ×3 (08:28→16:50)
[2019-08-15] MEDS: Ascorbic Acid 500 MG TABLET PO SCH (09:12)
[2019-08-15] MEDS: Gabapentin 300 MG CAPSULE PO SCH ×2 (09:12→14:17)
[2019-08-15] MEDS ORDERED: *HR* FentaNYL (PF) 100 MCG/2 ML VIAL IVP ONE (13:00)
[2019-08-15] MEDS ORDERED: *HR* Midazolam HCl 2 MG/2 ML VIAL IVP ONE (13:00)
[2019-08-15] MEDS ORDERED: Heparin 1,000 UNITS/500 mL 500 ML ONE (13:03)
[2019-08-15] MEDS ORDERED: Lidocaine/EPI 1:100k 1% 50 ML VIAL ONE (13:03)
[2019-08-15] MEDS ORDERED: *HR* FentaNYL (PF) 100 MCG/2 ML VIAL ONE (13:04)
[2019-08-15] MEDS ORDERED: *HR* Midazolam HCl 2 MG/2 ML VIAL ONE (13:05)
[2019-08-15] MEDS ORDERED: 0.9 % Sodium Chloride 500 ML ONE (13:05)
[2019-08-15] MEDS ORDERED: *HR* OxyCODONE/APAP 5/325 TABLET PO PRN (13:57)
[2019-08-15] MEDS ORDERED: Fluconazole 150 MG TABLET PO ONE (16:34)
[2019-08-15 19:31] VITALS: BP 103/70
== END 2019-08-15 21:10 | disposition home health service (06) | DRG 629 ==
LOC: SAMDAY 14:17 → 3NENU 14:17 → SUATTDRO 18:28
PROVIDERS: ADMIT Pharmacist; ATTEND Family Medicine

== ENCOUNTER 2019-09-19 12:31 | Observation (INO) ==
[2019-09-19] MEDS ORDERED: 0.9 % Sodium Chloride 250 ML IVC ONE (12:48)
[2019-09-19] MEDS ORDERED: 0.9 % Sodium Chloride 1,000 ML ONE (12:58)
[2019-09-19 13:24] LABS: Prothrombin Time 10.8 Seconds (9.4-12.1)
[2019-09-19 13:27] LABS: Activated Partial Thrombo Time 30.8 Seconds (26.0-36.0)
[2019-09-19 13:39] LABS: Bilirubin,Urine Negative (Negative); Blood,Urine Negative (Negative); Clarity,Urine Clear (Clear); Color,Urine Colorless (Yellow); Glucose,Urine (UA) Normal (Normal); Ketones,Urine Negative (Negative); Leukocyte Esterase,Urine Negative (Negative); Nitrite,Urine Negative (Negative); PH,Urine 5.5 pH Units (5.0-8.0); Protein,Urine Negative (Neg-Trace); Specific Gravity,Urine 1.007 (1.010-1.025); Urobilinogen,Urine Normal (Normal)
[2019-09-19 13:48] LABS: Amphetamine Screen,Urine Negative ng/mL (Cutoff=1000); Barbiturate Screen,Urine Negative ng/mL (Cutoff=200); Benzodiazepines Screen,Urine Negative ng/mL (Cutoff=200); Cannabinoid Screen,Urine Negative ng/mL (Cutoff = 50); Cocaine Screen,Urine Negative ng/mL (Cutoff= 300); Opiate Screen,Urine Negative ng/mL (Cutoff=300); Phencyclidine Screen,Urine Negative ng/mL (Cutoff=25)
[2019-09-19 14:08] LABS: Basophils # 0.1 K/mcL (0.0-0.2); Basophils % 0.5 %; Eosinophils # 0.7 K/mcL (0.0-0.6); Eosinophils % 4.6 %; Hematocrit 35.1 % (35.3-44.9); Hemoglobin 10.9 g/dL (11.5-15.4); Immature Granulocytes % 0.4 % (0-4); Lymphocytes # 1.7 K/mcL (0.6-4.6); Lymphocytes % 11.8 %; Mean Corpuscular HGB Conc 31.1 g/dL (31.6-35.5); Mean Corpuscular Hemoglobin 26.5 pg (28.0-33.3); Mean Corpuscular Volume 85.2 fL (83.0-100.0); Mean Platelet Volume 10.4 fL (9.4-12.4); Monocytes # 0.9 K/mcL (0.0-1.3); Monocytes % 6.4 %; Neutrophils # 10.8 K/mcL (1.6-8.9); Platelet Count 207 K/mcL (140-400); Red Blood Count 4.12 M/mcL (3.82-4.97); Red Cell Distribution Width 15.7 % (11.5-14.5); Segmented Neutrophils % 76.3 %; White Blood Count 14.2 K/mcL (4.3-11.1)
[2019-09-19 15:30] LABS: Alanine Aminotransferase 20 Units/L (7-52); Albumin 4.3 g/dL (3.5-5.7); Albumin/Globulin Ratio 1.5 (1.1-2.2); Alkaline Phosphatase 75 Units/L (34-104); Aspartate Amino Transferase 24 Units/L (13-39); BUN/Creatinine Ratio 27 (6-26); Bilirubin,Total 0.3 mg/dL (0.3-1.0); Blood Urea Nitrogen 44 mg/dL (6-20); Calcium 9.4 mg/dL (8.6-10.3); Carbon Dioxide 26 mEq/L (23-29); Chloride 99 mEq/L (98-107); Ethanol < 10 mg/dL (Less than 10); Globulin 2.9 g/dL (2.4-3.5); Glucose 151 mg/dL (70-105); Osmolality,Calculated 302 (280-300); Potassium 3.5 mEq/L (3.5-5.1); Sodium 139 mEq/L (136-145); Total Protein 7.2 g/dL (6.4-8.9); eGFR For African Americans 40 (> 60); eGFR For Non-African Americans 33 (> 60)
[2019-09-19 15:31] LABS: Troponin I < 0.03 ng/mL (< 0.04)
[2019-09-19] MEDS ORDERED: 0.9 % Sodium Chloride 1,000 ML IVC ONE (15:45)
[2019-09-19] MEDS ORDERED: Ammonia Inhalant AMPUL ONE (16:05)
[2019-09-19] MEDS ORDERED: *HR* LORazepam 2 MG/ML VIAL IVP ONE (16:17)
[2019-09-19 17:19] LABS: Creatine Kinase 117 Units/L (30-223); Vancomycin,Random 20 mcg/mL
[2019-09-19] MEDS ORDERED: Ondansetron 4 MG/2 ML VIAL IVP PRN (17:34)
[2019-09-19] MEDS ORDERED: Naloxone 0.4 MG/ML INJ IVP PRN (17:34)
[2019-09-19] MEDS ORDERED: Melatonin 3 MG TABLET PO SCH (21:00)
[2019-09-19] MEDS: *HR* LORazepam 2 MG/ML VIAL IVP SCH (23:04)
[2019-09-19] MEDS: Gabapentin 300 MG CAPSULE PO SCH (23:04)
[2019-09-19] MEDS: *HR* Heparin 5,000 UNIT/ML VIAL SQ SCH (23:05)
[2019-09-19] MEDS: Ringers Solution, Lactated 1,000 ML IVC SCH (23:06)
[2019-09-20 04:22] LABS: Basophils % 0.3 %; Eosinophils # 0.2 K/mcL (0.0-0.6); Eosinophils % 1.3 %; Hematocrit 34.5 % (35.3-44.9); Hemoglobin 10.9 g/dL (11.5-15.4); Immature Granulocytes % 0.6 % (0-4); Lymphocytes # 1.6 K/mcL (0.6-4.6); Lymphocytes % 11.8 %; Mean Corpuscular HGB Conc 31.6 g/dL (31.6-35.5); Mean Corpuscular Hemoglobin 26.8 pg (28.0-33.3); Mean Platelet Volume 10.3 fL (9.4-12.4); Monocytes # 0.6 K/mcL (0.0-1.3); Monocytes % 4.6 %; Neutrophils # 10.9 K/mcL (1.6-8.9); Platelet Count 223 K/mcL (140-400); Red Blood Count 4.06 M/mcL (3.82-4.97); Red Cell Distribution Width 15.7 % (11.5-14.5); Segmented Neutrophils % 81.4 %; White Blood Count 13.4 K/mcL (4.3-11.1)
[2019-09-20 04:38] LABS: Calcium 9.1 mg/dL (8.6-10.3); Potassium 3.6 mEq/L (3.5-5.1)
[2019-09-20] MEDS: *HR* Heparin 5,000 UNIT/ML VIAL SQ SCH (06:03)
[2019-09-20] MEDS: Ringers Solution, Lactated 1,000 ML IVC SCH (09:07)
[2019-09-20] MEDS: Gabapentin 300 MG CAPSULE PO SCH (09:07)
[2019-09-20] MEDS: *HR* LORazepam 2 MG/ML VIAL IVP SCH (09:08)
[2019-09-20 14:19] VITALS: BP 107/67
[2019-09-20] MEDS ORDERED: Aminoglycoside Consult 1 EACH MC ONE (15:13)
== END 2019-09-20 15:14 | disposition home or self-care (01) ==
LOC: EMEROOARM 12:31 → 2ANU 12:31 → SUATTDRO 18:19 → 2ANU 20:30
PROVIDERS: ADMIT Internal Medicine; ATTEND Internal Medicine

== ENCOUNTER 2019-10-03 07:29 | Inpatient (IN) ==
[2019-10-03] MEDS ORDERED: Gadolinium Contrast Agent (WT Based) IV PRN ×2 (08:07→19:35)
[2019-10-03] MEDS ORDERED: Morphine Sulfate 2 MG/ML SYRINGE IVP ONE (08:08)
[2019-10-03] MEDS ORDERED: VANCOMYCIN IVPB ONE (08:08)
[2019-10-03] MEDS ORDERED: SODIUM CHLORIDE 0.9% IVPB ONE (08:08)
[2019-10-03] MEDS ORDERED: Vancomycin 1,250 MG/262.5 ML IV.SOLN IVPB ONE (08:24)
[2019-10-03 08:41] LABS: Basophils # 0.1 K/mcL (0.0-0.2); Basophils % 0.7 %; Eosinophils # 0.6 K/mcL (0.0-0.6); Eosinophils % 5.2 %; Immature Granulocytes % 0.5 % (0-4); Lymphocytes % 28.4 %; Mean Corpuscular HGB Conc 31.3 g/dL (31.6-35.5); Mean Corpuscular Hemoglobin 26.2 pg (28.0-33.3); Mean Corpuscular Volume 83.8 fL (83.0-100.0); Mean Platelet Volume 10.1 fL (9.4-12.4); Monocytes # 0.8 K/mcL (0.0-1.3); Monocytes % 7.2 %; Neutrophils # 6.2 K/mcL (1.6-8.9); Nucleated Red Blood Cells 0.3 /100 WBC (0); Platelet Count 336 K/mcL (140-400); Red Blood Count 3.82 M/mcL (3.82-4.97); Red Cell Distribution Width 15.4 % (11.5-14.5); White Blood Count 10.7 K/mcL (4.3-11.1)
[2019-10-03 09:01] LABS: Albumin 4.2 g/dL (3.5-5.7); Albumin/Globulin Ratio 1.3 (1.1-2.2); Bilirubin,Total 0.3 mg/dL (0.3-1.0); Calcium 9.8 mg/dL (8.6-10.3); Globulin 3.3 g/dL (2.4-3.5); Potassium 2.8 mEq/L (3.5-5.1); Total Protein 7.5 g/dL (6.4-8.9)
[2019-10-03] MEDS ORDERED: 0.9 % Sodium Chloride 1,000 ML IVC ONE (09:05)
[2019-10-03] MEDS ORDERED: 0.9 % Sodium Chloride 1,000 ML IV ONE (09:07)
[2019-10-03] MEDS ORDERED: Naloxone 0.4 MG/ML INJ IVP PRN ×2 (09:39→19:35)
[2019-10-03] MEDS ORDERED: Ondansetron 4 MG/2 ML VIAL IVP PRN ×2 (09:39→19:35)
[2019-10-03] MEDS ORDERED: Ringers Solution, Lactated 1,000 ML IVC SCH (09:45)
[2019-10-03] MEDS ORDERED: *HR* HYDROmorphone (PF) 1 MG/ML SYRINGE IVP ONE (09:50)
[2019-10-03] MEDS ORDERED: *HR* Meperidine 25 MG/ML SYRINGE IVP PRN ×2 (17:35→19:35)
[2019-10-03] MEDS ORDERED: *HR* OxyCODONE Immed Rel 5 MG TABLET PO PRN (17:35)
[2019-10-03] MEDS ORDERED: *HR* Promethazine 25 MG/ML VIAL IVP PRN ×2 (17:35→19:35)
[2019-10-03] MEDS ORDERED: Ondansetron 4 MG/2 ML VIAL IVP ONE ×2 (17:35→19:35)
[2019-10-03] MEDS ORDERED: Bupivacaine/EPI 1:200k 0.25%PF 10 ML VIAL INFILT ONE (17:38)
[2019-10-03] MEDS ORDERED: *HR* Midazolam HCl 2 MG/2 ML VIAL ONE (17:40)
[2019-10-03] MEDS ORDERED: Ondansetron 4 MG/2 ML VIAL ONE (17:40)
[2019-10-03] MEDS ORDERED: *HR* FentaNYL (PF) 100 MCG/2 ML VIAL ONE (17:40)
[2019-10-03] MEDS ORDERED: Lidocaine -MPF 2% 2 ML VIAL ONE (17:40)
[2019-10-03] MEDS ORDERED: Dexamethasone 4 MG/ML VIAL ONE (17:40)
[2019-10-03] MEDS ORDERED: *HR* Propofol 200 MG/20 ML VIAL IVP ONE (17:40)
[2019-10-03] MEDS ORDERED: *HR* Heparin 5,000 UNIT/ML VIAL SQ SCH (18:00)
[2019-10-03] MEDS ORDERED: *HR* PHENYLEPHRINE 1,000 MCG/10 ML SYRINGE IVP ONE (18:11)
[2019-10-03] MEDS: *HR* HYDROmorphone PF 0.5 MG/0.5 ML SYRINGE IVP PRN ×2 (18:50→19:02)
[2019-10-03] MEDS ORDERED: *HR* HYDROmorphone PF 0.5 MG/0.5 ML SYRINGE IVP PRN (19:35)
[2019-10-03] MEDS: Ringers Solution, Lactated 1,000 ML IVC SCH (19:52)
[2019-10-03] MEDS ORDERED: D5% in Water 1,000 ML IVC PRN (20:25)
[2019-10-03] MEDS ORDERED: Dextrose Gel 15 GM/37.5 ML TUBE PO PRN ×2 (20:25)
[2019-10-03] MEDS ORDERED: *HR* Dextrose 50 % in Water (Vial) 50 ML VIAL IVP PRN (20:25)
[2019-10-03] MEDS: clonazePAM 1 MG TABLET PO SCH (21:19)
[2019-10-03] MEDS: Insulin LISPRO 300 UNITS/3 ML VIAL SQ SCH (21:19)
[2019-10-03] MEDS: Acetaminophen IV 1,000 MG/100 ML INFUS..BTL IVPB ONE (22:24)
[2019-10-04] MEDS: *HR* Heparin 5,000 UNIT/ML VIAL SQ SCH ×2 (05:11→17:41)
[2019-10-04 05:26] LABS: Basophils % 0.4 %; Eosinophils % 0.1 %; Hematocrit 26.9 % (35.3-44.9); Hemoglobin 8.3 g/dL (11.5-15.4); Immature Granulocytes % 0.2 % (0-4); Lymphocytes # 1.5 K/mcL (0.6-4.6); Lymphocytes % 17.5 %; Mean Corpuscular HGB Conc 30.9 g/dL (31.6-35.5); Mean Corpuscular Hemoglobin 26.5 pg (28.0-33.3); Mean Corpuscular Volume 85.9 fL (83.0-100.0); Mean Platelet Volume 10.5 fL (9.4-12.4); Monocytes # 0.4 K/mcL (0.0-1.3); Monocytes % 5.3 %; Neutrophils # 6.3 K/mcL (1.6-8.9); Platelet Count 296 K/mcL (140-400); Red Blood Count 3.13 M/mcL (3.82-4.97); Red Cell Distribution Width 15.5 % (11.5-14.5); Segmented Neutrophils % 76.5 %; White Blood Count 8.3 K/mcL (4.3-11.1)
[2019-10-04 05:49] LABS: Calcium 8.7 mg/dL (8.6-10.3); Potassium 3.5 mEq/L (3.5-5.1)
[2019-10-04] MEDS: clonazePAM 1 MG TABLET PO SCH ×3 (07:52→21:09)
[2019-10-04] MEDS: Insulin LISPRO 300 UNITS/3 ML VIAL SQ SCH ×4 (07:53→21:10)
[2019-10-04] MEDS: Ringers Solution, Lactated 1,000 ML IVC SCH (12:05)
[2019-10-04] MEDS ORDERED: tiZANidine 4 MG TABLET PO PRN (13:02)
[2019-10-04] MEDS: Gabapentin 300 MG CAPSULE PO SCH ×2 (15:36→21:09)
[2019-10-04] MEDS: Cefepime HCl 1,000 MG in 0.9 % Sodium Chloride Mini Bag 100 ML IVPB SCH (17:40)
[2019-10-04] MEDS ORDERED: *HR* HYDROmorphone (PF) 1 MG/ML SYRINGE IVP PRN (18:45)
[2019-10-04] MEDS ORDERED: Melatonin 3 MG TABLET PO SCH (21:00)
[2019-10-04] MEDS ORDERED: Acetaminophen IV 1,000 MG/100 ML INFUS..BTL IVPB ONE (23:09)
[2019-10-04] MEDS: Acetaminophen IV 1,000 MG/100 ML INFUS..BTL IVPB ONE (23:49)
[2019-10-05] MEDS: Cefepime HCl 1,000 MG in 0.9 % Sodium Chloride Mini Bag 100 ML IVPB SCH (06:15)
[2019-10-05] MEDS: *HR* Heparin 5,000 UNIT/ML VIAL SQ SCH (06:21)
[2019-10-05 06:30] LABS: Basophils # 0.1 K/mcL (0.0-0.2); Basophils % 0.9 %; Eosinophils # 0.5 K/mcL (0.0-0.6); Eosinophils % 7.5 %; Hematocrit 27.7 % (35.3-44.9); Hemoglobin 8.5 g/dL (11.5-15.4); Immature Granulocytes % 0.3 % (0-4); Lymphocytes # 3.2 K/mcL (0.6-4.6); Lymphocytes % 45.7 %; Mean Corpuscular HGB Conc 30.7 g/dL (31.6-35.5); Mean Corpuscular Hemoglobin 26.8 pg (28.0-33.3); Mean Corpuscular Volume 87.4 fL (83.0-100.0); Mean Platelet Volume 10.4 fL (9.4-12.4); Monocytes # 0.4 K/mcL (0.0-1.3); Monocytes % 6.4 %; Neutrophils # 2.7 K/mcL (1.6-8.9); Platelet Count 306 K/mcL (140-400); Red Blood Count 3.17 M/mcL (3.82-4.97); Red Cell Distribution Width 15.2 % (11.5-14.5); Segmented Neutrophils % 39.2 %; White Blood Count 6.9 K/mcL (4.3-11.1)
[2019-10-05 06:49] LABS: BUN/Creatinine Ratio 22 (6-26); Blood Urea Nitrogen 21 mg/dL (6-20); Calcium 8.9 mg/dL (8.6-10.3); Carbon Dioxide 27 mEq/L (23-29); Chloride 110 mEq/L (98-107); Glucose 83 mg/dL (70-105); Magnesium 1.5 mg/dL (1.6-2.6); Osmolality,Calculated 300 (280-300); Potassium 3.2 mEq/L (3.5-5.1); Sodium 144 mEq/L (136-145); eGFR For African Americans > 60 (> 60); eGFR For Non-African Americans > 60 (> 60)
[2019-10-05] MEDS: clonazePAM 1 MG TABLET PO SCH ×2 (08:01→15:35)
[2019-10-05] MEDS: Gabapentin 300 MG CAPSULE PO SCH ×2 (08:01→15:35)
[2019-10-05] MEDS: Insulin LISPRO 300 UNITS/3 ML VIAL SQ SCH ×2 (08:01→12:04)
[2019-10-05 08:27] LABS: Estimated Average Glucose 151 mg/dl
[2019-10-05] MEDS ORDERED: Ascorbic Acid 500 MG TABLET PO SCH (09:00)
[2019-10-05] MEDS ORDERED: 0.9 % Sodium Chloride 1,000 ML IVC ONE (12:53)
[2019-10-05] MEDS ORDERED: cefTRIAXone 2,000 MG in 0.9 % Sodium Chloride Mini Bag 100 ML IVPB SCH ×2 (13:00→18:00)
[2019-10-05] MEDS ORDERED: 0.9 % Sodium Chloride 1,000 ML IV ONE (15:35)
[2019-10-05 16:27] VITALS: BP 96/63
== END 2019-10-05 18:38 | disposition home health service (06) | DRG 629 ==
LOC: SUATTDRO → EMEROOARM 07:29 → 3NENU 07:29 → SUATTDRO 11:42 → 3NENU 12:56
PROVIDERS: ADMIT Internal Medicine; ATTEND Pharmacist